=== PATIENT | male | born 1960 | race African-American/Black ===

== ENCOUNTER 2018-03-29 13:56 | Inpatient (IN) | payer OTHER ==
[2018-03-29 16:37] VITALS: BMI 22.7
--- NOTE | 2018-03-29 17:50 | HP ---
COWS - Scale Resting Pulse: 0= [place] 80 or Below Sweatin= Chills/Flushing Restless Observation: 1= Difficult to Sit Still Pupil Size: 0= Normal to Room Light Bone or Joint Aches: 1= Mild Discomfort Runny Nose/ Eye Tearin= Runny Nose/Eyes GI Upset > 30mins: 2= Nausea/Diarrhea Tremor Observation: 2= Slight Tremor Visible Yawning Observation: 0= None Anxiety or Irritability: 1=Feels Anxious/Irritable Goose Flesh Skin: 0=Smooth Skin COWS Score: 10 CIWA Score - CIWA Score Nausea/Vomitin-Mild Nausea/No Vomiting Muscle Tremors: 4-Moderate,w/Arms Extend Anxiety: 1-Mildly Anxious Agitation: 2 Paroxysmal Sweats: 1-Minimal Palms Moist Orientation: 0-Oriented Tacttile Disturbances: 0-None Auditory Disturbances: 0-None Visual Disturbances: 0-None Headache: 0-None Present CIWA-Ar Total Score: 9 Admission ROS S - HPI Chief Complaint: Here for alcohol, cocaine and opiate w/drawal. States was on Suboxone but has taken and has been using heroin. Allergies/Adverse Reactions: Allergies Allergy/AdvReac Type Severity Reaction Status Date / Time heparin Allergy Severe Rash Verified 07/07/16 17:36 ibuprofen Allergy Severe Rash Verified 07/07/16 17:36 prochlorperazine Allergy Severe Rash Verified 07/07/16 17:36 [From Compazine] prochlorperazine edisylate Allergy Severe Rash Verified 07/07/16 17:36 [From Compazine] prochlorperazine maleate Allergy Severe Rash Verified 07/07/16 17:36 [From Compazine] SEAFOOD Allergy Severe Rash Uncoded 07/07/16 17:36 History of Present Illness: Using drug and alcohol daily since age 41 via IV route. States has HIV, Hep C ( Rx'd), HTN, Have had past detox's and prior methadone maintenance tx. States currently on Suboxone being rx'd at [facility]. Denies Suboxone use for 2 days. Agrees to remain on Suboxone treatment and return to [facility]. [facility] [employer] reviewed. - Ebola screening Have you traveled outside of the country in the last 21 days: No Have you had contact with anyone from an Ebola affected area: No Have you been sick,other than usual withdrawal symptoms: No Do you have a fever: No - Review of Systems Constitutional: Chills, Changes in sleep (Has difficulty fallin asleep and staying asleep. Taakes ambien and trazodone.), Unintentional Wgt. Loss (Has had 15 lb weigh loss in past 1-2 months.) EENT: reports: Tearing (Constant tearing for years unrelated to drug use.) Respiratory: reports: No Symptoms reported Cardiac: reports: No Symptoms Reported GI: reports: Constipated (Intermittent. BM's brown. No blood.) : reports: Other (Has difficulty starting urine flow and difficulty stopping. No burning or pain. No blood.) Musculoskeletal: reports: Back Pain (R/t withdrawal. Pain is achy and about a "5 "), Joint Pain (Achy pain in both knees, intermittently x 2 years. Now pain is a "6"), Other (Sharp pains in all toes and fingers "7") Integumentary: reports: No Symptoms Reported Neuro: reports: No Symptoms reported Endocrine: reports: No Symptoms Reported Hematology: reports: Anemia (Unknown type), Other (HIV (+)) Psychiatric: reports: Mood/Affect Appropiate (Denies thoughts of suicide or violent ideation.), Orientated x3 Patient History - Patient Medical History Hx Anemia: No Hx Asthma: Yes (Last exacerbation 2 reyes ago) Hx Chronic Obstructive Pulmonary Disease (COPD): No Hx Cancer: No Hx Cardiac Disorders: No Hx Congestive Heart Failure: No Hx Hypertension: Yes (on meds,) Hx Hypercholesterolemia: No Hx Pacemaker: No HX Cerebrovascular Accident: No Hx Seizures: No Hx Dementia: No Hx Diabetes: No Hx Gastrointestinal Disorders: No Hx Liver Disease: No Hx Genitourinary Disorders: No Hx Sexually Transmitted Disorders: No Hx Renal Disease (ESRD): No Hx Thyroid Disease: No Hx Human Immunodeficiency Virus (HIV): Yes (2000) Hx Hepatitis C: Yes (2001. States Hep C is cured.) Hx Depression: No Hx Suicide Attempt: No Hx Bipolar Disorder: No Hx Schizophrenia: No - Patient Surgical History Past Surgical History: No Hx Neurologic Surgery: No Hx Cataract Extraction: No Hx Cardiac Surgery: No Hx Lung Surgery: No Hx Breast Surgery: No Hx Breast Biopsy: No Hx Abdominal Surgery: No Hx Appendectomy: No Hx Cholecystectomy: No Hx Genitourinary Surgery: No Hx Section: No Hx Orthopedic Surgery: No Anesthesia Reaction: No - PPD History Previous Implant?: Yes Documented Results: Negative w/o proof Implanted On Prior [facility] Admission?: Yes Date: 07/09/16 PPD to be Administered?: Yes - Reproductive History Patient is a Female of Child Bearing Age (11 -55 yrs old): No (Male) - Smoking Cessation Smoking history: Current every day smoker Have you smoked in the past 12 months: Yes Aproximately how many cigarettes per day: 6 Hx Chewing Tobacco Use: No Initiated information on smoking cessation: Yes 'Breaking Loose' booklet given: 03/29/18 - Substance & Tx. History Hx Alcohol Use: Yes Hx Substance Use: Yes Substance Use Type: Alcohol, Heroin, Marijuana Hx Substance Use Treatment: Yes (Suboxone 8/2 mg SL TID. ) - Substances Abused Alcohol Route: Oral Frequency: Daily Amount used: 1 PINT AND 1/2 VODKA Age of first use: 14 Date of Last Use: 03/29/18 Cocaine Route: Injection Frequency: Daily Amount used: $100 Age of first use: 41 Date of Last Use: 03/28/18 Marijuana/Hashish Route: Smoking Frequency: Daily Amount used: $10 Age of first use: 15 Date of Last Use: 03/28/18 Heroin Route: Injection Frequency: 3-6 times per week Amount used: 2-3 BAGS Age of first use: 41 Date of Last Use: 03/28/18 Family Disease History - Family Disease History Family Disease History: [place]: Father, Respiratory: Mother, Other: Son (KILLED) Admission Physical Exam [facility] - Vital Signs Vital Signs: Vital Signs - 24 hr 03/29/18 16:35 Temperature 97.0 F L Pulse Rate 53 L Respiratory 18 Rate Blood Pressure 107/68 - Physical General Appearance: Yes: Appropriately Dressed, Tremorous, Anxious HEENTM: Yes: Hearing grossly Normal, Normocephalic, Normal Voice, JOHANNA Respiratory: Yes: Chest Non-Tender, Lungs Clear, Normal Breath Sounds Neck: Yes: No masses,lesions,Nodules, Supple Breast: Yes: Breast Exam Deferred Cardiology: Yes: Regular Rhythm, S1, S2, Bradycardia Abdominal: Yes: Normal Bowel Sounds, Non Tender, Flat, Soft Genitourinary: Yes: Within Normal Limits Back: Yes: Other (Curvature of spine. Non-tender. FROM.) Musculoskeletal: Yes: full range of Motion, Gait Steady Extremities: Yes: Normal Capillary Refill, Normal Inspection, Normal Range of Motion, Tremors Neurological: Yes: Fully Oriented, Alert, Motor Strength 5/5 Integumentary: Yes: Track Sandra (Track sandra on arms.) Lymphatic: Yes: Within Normal Limits - Diagnostic (1) Insomnia Current Visit: Yes Status: Chronic (2) Alcohol dependence with withdrawal Current Visit: Yes Status: Acute Qualifiers: Complication of substance-induced condition: uncomplicated Qualified Code(s ): F10.230 - Alcohol dependence with withdrawal, uncomplicated (3) Cocaine dependence Current Visit: Yes Status: Acute Qualifiers: Substance use status: uncomplicated Qualified Code(s): F14.20 - Cocaine dependence, uncomplicated (4) Marijuana dependence Current Visit: Yes Status: Chronic (5) Nicotine dependence Current Visit: Yes Status: Chronic Qualifiers: Nicotine product type: cigarettes Substance use status: uncomplicated Qualified Code(s): F17.210 - Nicotine dependence, cigarettes, uncomplicated (6) Asthma Current Visit: Yes Status: Chronic Qualifiers: Asthma severity: mild intermittent Asthma complication type: with status asthmaticus Qualified Code(s): J45.22 - Mild intermittent asthma with status asthmaticus (7) Benign prostatic hyperplasia (BPH) with straining on urination Current Visit: Yes Status: Chronic (8) HIV (human immunodeficiency virus infection) Current Visit: Yes Status: Chronic Comment: PATIENT REPORTS TAKING TRUVADA, PREZISTA, NORVIR, ISENTRESS (TWO) ONCE A DAY IN THE MORNING, VIRUS NOT DETECTABLE (9) Hepatitis C Current Visit: Yes Status: Resolved Qualifiers: Viral hepatitis chronicity: carrier (10) Hypertension Current Visit: Yes Status: Chronic Qualifiers: Hypertension type: essential hypertension Qualified Code(s): I10 - Essential (primary) hypertension Cleared for Admission [facility] - Detox or Rehab S Level of Care: Medically Managed Detox Regimen/Protocol: Valium (Will start on Suboxone maintenance) [facility] Breath Alcohol Content Breath Alcohol Content: 0 Urine Drug Screen - Results Drug Screen Negative: No Urine Drug Screen Results: THC-Marijuana, TEENA-Cocaine, OPI-Opiates
[2018-03-29] MEDS ORDERED: MAGNESIUM CITRATE 300 ML BOTTLE PO PRN (18:43)
[2018-03-29] MEDS ORDERED: guaiFENesin/D-METHORPHAN HB 10 ML UNIT-DOSE CUPS PO PRN (18:43)
[2018-03-29] MEDS ORDERED: MAGNESIUM HYDROX 2400MG/30ML ORAL SUSPENSION 30 ML CUP PO PRN (18:43)
[2018-03-29] MEDS ORDERED: hydrOXYzine PAMOATE 50 MG CAPSULE (FP) PO PRN (18:43)
[2018-03-29] MEDS ORDERED: MAG HYDROX/AL HYDROX/SIMETH 30 ML UNIT-DOSE CUP PO PRN (18:43)
[2018-03-29] MEDS ORDERED: NICOTINE POLACRILEX 2 MG GUM BC PRN (18:43)
[2018-03-29] MEDS ORDERED: P-EPHED 60MG/TRIPROLIDI 2.5MG TABLET PO PRN (18:43)
[2018-03-29] MEDS ORDERED: LOPERAMIDE HCL 2 MG CAPSULE PO PRN (18:43)
[2018-03-29] MEDS ORDERED: MENTHOL/PHENOL 1 EACH UD MM PRN (18:43)
[2018-03-29] MEDS ORDERED: ALBUTEROL SO4 18 GM HFA INHALER IH PRN (18:45)
[2018-03-29] MEDS ORDERED: diazePAM 5 MG TABLET PO ONE (19:04)
[2018-03-29] MEDS: THIAMINE HCL 100 MG TABLET (FP) PO SCH (22:31)
[2018-03-29] MEDS: diazePAM 5 MG TABLET PO SCH (22:32)
[2018-03-29] MEDS: MELATONIN 5 MG TABLETS PO PRN (22:34)
[2018-03-30] MEDS: diazePAM 5 MG TABLET PO SCH ×3 (06:20→22:31)
[2018-03-30] MEDS: TAMSULOSIN HCL 0.4 MG CAP.ER.24H (FP) PO SCH (09:01)
[2018-03-30] MEDS ORDERED: TESTOSTERONE 5 GM TD SCH (10:00)
[2018-03-30] MEDS: PRENATAL VITAMINS W/ FOLIC ACID TABLET (FP) PO SCH (10:42)
[2018-03-30] MEDS: amLODIPine BESYLATE 5 MG TABLET (FP) PO SCH (10:42)
[2018-03-30] MEDS: NICOTINE 14 MG/24 HOURS TOPICAL PATCH TD SCH (10:42)
[2018-03-30] MEDS: BUPRENORPHINE/NALOXONE 8 MG/2 MG FILM PACKET SL SCH (10:42)
[2018-03-30 10:43] LABS: HEMATOCRIT 34.4 % (35.4-49); MCH 27.9 pg (25.7-33.7); MCHC 32.1 g/dl (32.0-35.9); MEAN CELL VOLUME 87.1 fl (80-96); MEAN PLT VOLUME 7.5 fl (7.5-11.1); PLATELET COUNT 212 K/MM3 (134-434); RBC 3.95 M/mm3 (4.00-5.60); RDW 15.4 % (11.9-15.9); WHITE BLOOD COUNT 2.1 K/mm3 (4.0-10.0)
[2018-03-30 10:52] LABS: CHLORIDE 108 mmol/L (98-107); POTASSIUM 3.9 mmol/L (3.5-5.1); SODIUM 140 mmol/L (136-145)
[2018-03-30 11:13] LABS: ALBUMIN 2.8 g/dl (3.4-5.0); ALK PHOS 78 U/L (45-117); ANION GAP 5 (8-16); BILIRUBIN,TOTAL 0.5 mg/dL (0.2-1.0); BLOOD UREA NITROGEN 25 mg/dL (7-18); CO2 27 mmol/L (21-32); GLUCOSE,RANDOM 116 mg/dL (74-106); SGOT/AST 34 U/L (15-37); SGPT/ALT 19 U/L (12-78); TOT PROT 7.3 g/dl (6.4-8.2)
--- NOTE | 2018-03-30 12:36 | CONSULT ---
[facility] Psychiatric Consult - Data Date of interview: 03/30/18 Admission source: [facility] Identifying data: Second admission to [facility] for this 58 y/o AA male seeking detox treatment on for alcohol,cocaine,heroin and marijuana dependence.Patient is single without children,domiciled,unemployed and supported on SSI benefits. Substance Abuse History: Confirmed by the patient in this interview.Details in current [facility] report : Smoking history: Current every day smoker. Have you smoked in the past 12 months: Yes. Aproximately how many cigarettes per day: 6. Hx Chewing Tobacco Use: No. Initiated information on smoking cessation: Yes. 'Breaking Loose' booklet given: 03/29/18. - Substance & Tx. History. Hx Alcohol Use: Yes. Hx Substance Use: Yes. Substance Use Type: Alcohol, Heroin, Marijuana. Hx Substance Use Treatment: Yes (Suboxone 8/2 mg SL TID. ). - Substances Abused. Alcohol. Route: Oral. Frequency: Daily. Amount used: 1 PINT AND 1/2 VODKA. Age of first use: 14. Date of Last Use: 03/29/18. Cocaine. Route: Injection. Frequency: Daily. Amount used: $100. Age of first use: 41. Date of Last Use: 03/28/18. Marijuana/Hashish. Route: Smoking. Frequency: Daily. Amount used: $10. Age of first use: 15. Date of Last Use: 03/28/18. Heroin. Route: Injection. Frequency: 3-6 times per week. Amount used: 2-3 BAGS. Age of first use: 41. Date of Last Use: 03/28/18 Medical History: Remarkable for HIV infection since 2000 (on HAART medications), hypertension,bronchal asthma,COPD,benign prostatic hyperplasia (BPH) and hepatitis C.Patient is currently on suboxone maintenance. Psychiatric History: No history of psychiatric hospitalizations.Patient denies having a mental illness. " My issue is drugs ".Mr Campbell sees a therapist at [facility] program for " talk therapy " and suboxone maintenance.Patient admits to a distant history of one suicide attempt via overdose with medications (someone else's medications). Physical/Sexual Abuse/Trauma History: Patient denies. Additional Comment: Urine Drug Screen Results: THC-Marijuana, TEENA-Cocaine, OPI- Opiates.Noted. Mental Status Exam - Mental Status Exam Alert and Oriented to: Time, Place, Person Cognitive Function: Good Patient Appearance: Well Groomed Mood: Nervous, Withdrawn Affect: Mood Congruent Patient Behavior: Fatigued, Appropriate, Cooperative Speech Pattern: Clear Voice Loudness: Normal Thought Process: Intact, Goal Oriented Thought Disorder: Not Present Hallucinations: Denies Suicidal Ideation: Denies Homicidal Ideation: Denies Insight/Judgement: Poor Sleep: Well Appetite: Good Muscle strength/Tone: Normal Gait/Station: Normal Psychiatric Findings - Problem List ([place]anoni 1, 2,3) (1) Alcohol dependence with withdrawal Current Visit: Yes Status: Acute Qualifiers: Complication of substance-induced condition: uncomplicated Qualified Code(s ): F10.230 - Alcohol dependence with withdrawal, uncomplicated (2) Cocaine dependence Current Visit: Yes Status: Acute Qualifiers: Substance use status: uncomplicated Qualified Code(s): F14.20 - Cocaine dependence, uncomplicated (3) Marijuana dependence Current Visit: Yes Status: Acute (4) Nicotine dependence Current Visit: Yes Status: Acute Qualifiers: Nicotine product type: cigarettes Substance use status: uncomplicated Qualified Code(s): F17.210 - Nicotine dependence, cigarettes, uncomplicated (5) Substance induced mood disorder Current Visit: Yes Status: Acute - Initial Treatment Plan Initial Treatment Plan: Psychoeducation.Detoxification.Observation.
[2018-03-30] MEDS: EMTRICITABINE PO SCH (14:21)
[2018-03-30] MEDS: TENOFOVIR PO SCH (14:21)
[2018-03-30] MEDS: RALTEGRAVIR PO SCH ×3 (14:22→22:32)
[2018-03-30] MEDS: RITONAVIR PO SCH (14:22)
[2018-03-30] MEDS: DARUNAVIR ETHANOLATE PO SCH (14:22)
--- NOTE | 2018-03-30 14:39 | EKG ---
Test Reason : Blood Pressure : / mmHG Vent. Rate : 050 BPM Atrial Rate : 050 BPM P-R Int : 154 ms QRS Dur : 100 ms QT Int : 466 ms P-R-T Axes : 054 028 047 degrees QTc Int : 424 ms SINUS BRADYCARDIA OTHERWISE NORMAL ECG NO PREVIOUS ECGS AVAILABLE Confirmed by MD Sanchez Daniel ([id number]) on 03/30/2018 2:39:16 PM Referred By: Confirmed By:Pj Sanchez MD
--- NOTE | 2018-03-30 16:42 | PN ---
[facility] CIWA - CIWA Score Nausea/Vomitin-No Nausea/No Vomiting Muscle Tremors: 4-Moderate,w/Arms Extend Anxiety: 3 Agitation: 1-Slight > Activity Paroxysmal Sweats: No Perspiration Orientation: 0-Oriented Tacttile Disturbances: 2-Mild Itch/Numbness/Burn Auditory Disturbances: 2-Mild Harshness/Frighten Visual Disturbances: 3-Moderate Sensitivity Headache: 0-None Present CIWA-Ar Total Score: 15 S COWS - Scale Resting Pulse: 0= [place] 80 or Below Sweatin= Chills/Flushing Restless Observation: 1= Difficult to Sit Still Pupil Size: 0= Normal to Room Light Bone or Joint Aches: 2= Severe Diffuse Aches Runny Nose/ Eye Tearin= None GI Upset > 30mins: 0= None Tremor Observation of Outstretched Hands: 2= Slight Tremor Visible Yawning Observation: 1= 1-2x During Session Anxiety or Irritability: 2=Irritable/Anxious Goose Flesh Skin: 3=Piloerection COWS Score: 12 [facility] Progress Note (SOAP) Subjective: Tremors, Fatigue, Body Aches. Objective: PATIENT A & O X 3, OBSERVED AMBULATING ON UNIT. NO ACUTE DISTRESS. 03/30/18 16:41 Vital Signs Temperature 96.4 F L 03/30/18 13:27 Pulse Rate 57 L 03/30/18 13:27 Respiratory Rate 16 03/30/18 13:27 Blood Pressure 93/66 03/30/18 13:27 O2 Sat by Pulse Oximetry (%) Laboratory Tests 03/30/18 03/30/18 03/30/18 07:40 07:40 07:40 WBC 2.1 L RBC 3.95 L Hgb 11.0 L Hct 34.4 L MCV 87.1 MCH 27.9 MCHC 32.1 RDW 15.4 Plt Count 212 MPV 7.5 Sodium 140 Potassium 3.9 Chloride 108 H Carbon Dioxide 27 Anion Gap 5 L BUN 25 H D Creatinine 1.0 Creat Clearance w eGFR > 60 Random Glucose 116 H D Calcium 8.0 L Total Bilirubin 0.5 D AST 34 D ALT 19 D Alkaline Phosphatase 78 Total Protein 7.3 Albumin 2.8 L RPR Titer Nonreactive LABS NOTED. Assessment: 03/30/18 16:41 WITHDRAWAL SYMPTOMS. LEUKOPENIA. 03/30/18 16:41 Plan: CONTINUE DETOX. INCREASE DAILY PO FLUID INTAKE.
[2018-03-30] MEDS: THIAMINE HCL 100 MG TABLET (FP) PO SCH (22:31)
[2018-03-30] MEDS: MELATONIN 5 MG TABLETS PO PRN (22:32)
[2018-03-30] MEDS: ACETAMINOPHEN 325 MG TABLET (FP) PO PRN (22:34)
[2018-03-31] MEDS: TENOFOVIR PO SCH (09:43)
[2018-03-31] MEDS: EMTRICITABINE PO SCH (09:43)
[2018-03-31] MEDS: RITONAVIR PO SCH (09:43)
[2018-03-31] MEDS: TAMSULOSIN HCL 0.4 MG CAP.ER.24H (FP) PO SCH (09:43)
[2018-03-31] MEDS: RALTEGRAVIR PO SCH ×2 (09:43→22:35)
[2018-03-31] MEDS: PRENATAL VITAMINS W/ FOLIC ACID TABLET (FP) PO SCH (09:44)
[2018-03-31] MEDS: amLODIPine BESYLATE 5 MG TABLET (FP) PO SCH (09:44)
[2018-03-31] MEDS: diazePAM 5 MG TABLET PO SCH ×2 (09:44→22:35)
[2018-03-31] MEDS: DARUNAVIR ETHANOLATE PO SCH (09:44)
[2018-03-31] MEDS: NICOTINE 14 MG/24 HOURS TOPICAL PATCH TD SCH (09:44)
[2018-03-31] MEDS: BUPRENORPHINE/NALOXONE 8 MG/2 MG FILM PACKET SL SCH (09:44)
[2018-03-31] MEDS: ACETAMINOPHEN 325 MG TABLET (FP) PO PRN (09:46)
--- NOTE | 2018-03-31 14:26 | PN ---
S CIWA - CIWA Score Nausea/Vomitin-No Nausea/No Vomiting Muscle Tremors: 4-Moderate,w/Arms Extend Anxiety: 4-Mod. Anxious/Guarded Agitation: 4-Moderately Restless Paroxysmal Sweats: 1-Minimal Palms Moist Orientation: 0-Oriented Tacttile Disturbances: 0-None Auditory Disturbances: 0-None Visual Disturbances: 0-None Headache: 0-None Present CIWA-Ar Total Score: 13 S COWS - Scale Resting Pulse: 0= [place] 80 or Below Sweatin= Chills/Flushing Restless Observation: 3= Extraneous Movement Pupil Size: 0= Normal to Room Light Bone or Joint Aches: 1= Mild Discomfort Runny Nose/ Eye Tearin= Nasal Congestion GI Upset > 30mins: 1= Stomach Cramp Tremor Observation of Outstretched Hands: 2= Slight Tremor Visible Yawning Observation: 1= 1-2x During Session Anxiety or Irritability: 2=Irritable/Anxious Goose Flesh Skin: 0=Smooth Skin COWS Score: 12 S Progress Note (SOAP) Subjective: ANXIETY,SWEATS,FATIGUE. Objective: 03/31/18 14:21 Vital Signs 03/31/18 03/31/18 03/31/18 06:40 09:35 13:20 Temperature 96.0 F L 96.5 F L 96.5 F L Pulse Rate 81 53 L 77 Respiratory 18 18 18 Rate Blood Pressure 111/71 118/69 117/64 Laboratory Tests 03/30/18 03/30/18 03/30/18 07:40 07:40 07:40 WBC 2.1 L RBC 3.95 L Hgb 11.0 L Hct 34.4 L MCV 87.1 MCH 27.9 MCHC 32.1 RDW 15.4 Plt Count 212 MPV 7.5 Sodium 140 Potassium 3.9 Chloride 108 H Carbon Dioxide 27 Anion Gap 5 L BUN 25 H D Creatinine 1.0 Creat Clearance w eGFR > 60 Random Glucose 116 H D Calcium 8.0 L Total Bilirubin 0.5 D AST 34 D ALT 19 D Alkaline Phosphatase 78 Total Protein 7.3 Albumin 2.8 L RPR Titer Nonreactive Assessment: 03/31/18 14:22 WITHDRAWAL SX Plan: CONTINUE DETOX UA TODAY REPEAT CMP AND CBC IN AM
[2018-03-31 17:45] LABS: URINE APPEARANCE SLCLOUDY; URINE BILIRUBIN NEGATIVE (<2.0 mg/dL); URINE COLOR DKYELLOW; URINE GLUCOSE (UA) NEGATIVE (NEGATIVE); URINE KETONE NEGATIVE (NEGATIVE); URINE LEUK ESTERASE TRACE (NEGATIVE); URINE NITRITE NEGATIVE (NEGATIVE); URINE PROTEIN NEGATIVE (NEGATIVE)
[2018-03-31 17:55] LABS: EPI CELLS RARE /HPF (FEW); URINE HYALINE CAST 9 /lpf; URINE MUCUS FEW
[2018-03-31] MEDS: THIAMINE HCL 100 MG TABLET (FP) PO SCH (22:35)
[2018-03-31] MEDS: MELATONIN 5 MG TABLETS PO PRN (22:35)
[2018-04-01] MEDS: diazePAM 5 MG TABLET PO PRN ×2 (06:51→17:11)
[2018-04-01 09:40] LABS: HEMATOCRIT 36.4 % (35.4-49); HEMOGLOBIN 11.9 GM/dL (11.7-16.9); MCH 28.7 pg (25.7-33.7); MCHC 32.7 g/dl (32.0-35.9); MEAN CELL VOLUME 87.8 fl (80-96); MEAN PLT VOLUME 7.9 fl (7.5-11.1); PLATELET COUNT 236 K/MM3 (134-434); RBC 4.15 M/mm3 (4.00-5.60); RDW 15.7 % (11.9-15.9); WHITE BLOOD COUNT 2.7 K/mm3 (4.0-10.0)
[2018-04-01 09:51] LABS: CHLORIDE 105 mmol/L (98-107); SODIUM 139 mmol/L (136-145)
[2018-04-01 09:58] LABS: ALBUMIN 2.9 g/dl (3.4-5.0); ALK PHOS 83 U/L (45-117); ANION GAP 2 (8-16); BLOOD UREA NITROGEN 21 mg/dL (7-18); CALCIUM 8.1 mg/dL (8.5-10.1); CO2 32 mmol/L (21-32); GLUCOSE,RANDOM 98 mg/dL (74-106); SGOT/AST 28 U/L (15-37); SGPT/ALT 19 U/L (12-78); TOT PROT 7.5 g/dl (6.4-8.2)
[2018-04-01] MEDS: TAMSULOSIN HCL 0.4 MG CAP.ER.24H (FP) PO SCH (10:30)
[2018-04-01] MEDS: RALTEGRAVIR PO SCH ×2 (10:31→22:22)
[2018-04-01] MEDS: PRENATAL VITAMINS W/ FOLIC ACID TABLET (FP) PO SCH (10:32)
[2018-04-01] MEDS: amLODIPine BESYLATE 5 MG TABLET (FP) PO SCH (10:32)
[2018-04-01] MEDS: BUPRENORPHINE/NALOXONE 8 MG/2 MG FILM PACKET SL SCH (10:32)
[2018-04-01] MEDS: diazePAM 5 MG TABLET PO SCH ×2 (10:32→22:22)
[2018-04-01] MEDS: TENOFOVIR PO SCH (10:33)
[2018-04-01] MEDS: EMTRICITABINE PO SCH (10:33)
[2018-04-01] MEDS: DARUNAVIR ETHANOLATE PO SCH (10:33)
[2018-04-01] MEDS: RITONAVIR PO SCH (10:36)
[2018-04-01] MEDS: NICOTINE 14 MG/24 HOURS TOPICAL PATCH TD SCH (10:39)
--- NOTE | 2018-04-01 12:22 | PN ---
S Progress Note (SOAP) Subjective: ALERT O X 3. OOB ON THE UNIT WITH STEADY GAIT. SLIGHTLY FATIGUED. Objective: 04/01/18 12:22 Vital Signs Temperature 96.0 F L 04/01/18 09:58 Pulse Rate 56 L 04/01/18 09:58 Respiratory Rate 16 04/01/18 09:58 Blood Pressure 119/78 05 09:58 O2 Sat by Pulse Oximetry (%) Laboratory Last Values WBC 2.7 K/mm3 (4.0-10.0) L 04/01/18 07:00 RBC 4.15 M/mm3 (4.00-5.60) 04/01/18 07:00 Hgb 11.9 GM/dL (11.7-16.9) 04/01/18 07:00 Hct 36.4 % (35.4-49) 04/01/18 07:00 MCV 87.8 fl (80-96) 04/01/18 07:00 MCH 28.7 pg (25.7-33.7) 04/01/18 07:00 MCHC 32.7 g/dl (32.0-35.9) 04/01/18 07:00 RDW 15.7 % (11.9-15.9) 04/01/18 07:00 Plt Count 236 K/MM3 (134-434) 04/01/18 07:00 MPV 7.9 fl (7.5-11.1) 04/01/18 07:00 Sodium 139 mmol/L (136-145) 04/01/18 07:00 Potassium 4.0 mmol/L (3.5-5.1) 04/01/18 07:00 Chloride 105 mmol/L (98-107) 04/01/18 07:00 Carbon Dioxide 32 mmol/L (21-32) 04/01/18 07:00 Anion Gap 2 (8-16) L 04/01/18 07:00 BUN 21 mg/dL (7-18) H 04/01/18 07:00 Creatinine 1.0 mg/dL (0.7-1.3) 04/01/18 07:00 Creat Clearance w eGFR > 60 (>60) 04/01/18 07:00 Random Glucose 98 mg/dL (74-106) 04/01/18 07:00 Calcium 8.1 mg/dL (8.5-10.1) L 04/01/18 07:00 Total Bilirubin 1.0 mg/dL (0.2-1.0) D 04/01/18 07:00 AST 28 U/L (15-37) 04/01/18 07:00 ALT 19 U/L (12-78) 04/01/18 07:00 Alkaline Phosphatase 83 U/L (45-117) 04/01/18 07:00 Total Protein 7.5 g/dl (6.4-8.2) 04/01/18 07:00 Albumin 2.9 g/dl (3.4-5.0) L 04/01/18 07:00 Urine Color Dkyellow 03/31/18 14:30 Urine Appearance Slcloudy 03/31/18 14:30 Urine pH 5.0 (5.0-8.0) 03/31/18 14:30 Ur Specific [place] 1.027 (1.001-1.035) 03/31/18 14:30 Urine Protein Negative (NEGATIVE) 03/31/18 14:30 Urine Glucose (UA) Negative (NEGATIVE) 03/31/18 14:30 Urine Ketones Negative (NEGATIVE) 03/31/18 14:30 Urine Blood Negative (NEGATIVE) 03/31/18 14:30 Urine Nitrite Negative (NEGATIVE) 03/31/18 14:30 Urine Bilirubin Negative (<2.0 mg/dL) 03/31/18 14:30 Urine Urobilinogen 2.0 mg/dL (0.2-1.0) 03/31/18 14:30 Ur Leukocyte Esterase Trace (NEGATIVE) 03/31/18 14:30 Urine WBC (Auto) 5 /hpf (3-5) 03/31/18 14:30 Urine RBC (Auto) 1 /hpf (0-3) 03/31/18 14:30 Ur Epithelial Cells Rare /HPF (FEW) 03/31/18 14:30 Hyaline Casts 9 /lpf 03/31/18 14:30 Urine Mucus Few 03/31/18 14:30 RPR Titer Nonreactive (NONREACTIVE) 03/30/18 07:40 Assessment: 04/01/18 12:23 WITHDRWAL SX Plan: CONTINUE DETOX
[2018-04-01] MEDS: THIAMINE HCL 100 MG TABLET (FP) PO SCH (22:22)
[2018-04-01] MEDS: MELATONIN 5 MG TABLETS PO PRN (22:22)
[2018-04-02] MEDS: TAMSULOSIN HCL 0.4 MG CAP.ER.24H (FP) PO SCH (09:11)
[2018-04-02] MEDS: amLODIPine BESYLATE 5 MG TABLET (FP) PO SCH (09:11)
[2018-04-02] MEDS: BUPRENORPHINE/NALOXONE 8 MG/2 MG FILM PACKET SL SCH (09:11)
[2018-04-02 09:12] VITALS: BP 123/77; PULSE 65; TEMP 96.8
[2018-04-02] MEDS ORDERED: diazePAM 5 MG TABLET PO SCH (10:00)
--- NOTE | 2018-04-02 15:01 | PN ---
S Progress Note (SOAP) Subjective: DETOX COMPLETED. ALERT O X 3. NAD. PT TO FOLLOW UP WITH PMD DR ELENA GERONIMO FOR MEDICAL MANAGEMENT FOR COMORBID CONDITIONS NEEDED. Objective: 04/02/18 15:00 Vital Signs Temperature 96.8 F L 04/02/18 09:11 Pulse Rate 65 04/02/18 09:11 Respiratory Rate 18 04/02/18 09:11 Blood Pressure 123/77 04/02/18 09:11 O2 Sat by Pulse Oximetry (%) Laboratory Tests 03/30/18 03/30/18 03/30/18 07:40 07:40 07:40 WBC 2.1 L RBC 3.95 L Hgb 11.0 L Hct 34.4 L MCV 87.1 MCH 27.9 MCHC 32.1 RDW 15.4 Plt Count 212 MPV 7.5 Sodium 140 Potassium 3.9 Chloride 108 H Carbon Dioxide 27 Anion Gap 5 L BUN 25 H D Creatinine 1.0 Creat Clearance w eGFR > 60 Random Glucose 116 H D Calcium 8.0 L Total Bilirubin 0.5 D AST 34 D ALT 19 D Alkaline Phosphatase 78 Total Protein 7.3 Albumin 2.8 L Urine Color Urine Appearance Urine pH Ur Specific [place] Urine Protein Urine Glucose (UA) Urine Ketones Urine Blood Urine Nitrite Urine Bilirubin Urine Urobilinogen Ur Leukocyte Esterase Urine WBC (Auto) Urine RBC (Auto) Ur Epithelial Cells Hyaline Casts Urine Mucus RPR Titer Nonreactive 03/31/18 04/01/18 04/01/18 14:30 07:00 07:00 WBC 2.7 L RBC 4.15 Hgb 11.9 Hct 36.4 MCV 87.8 MCH 28.7 MCHC 32.7 RDW 15.7 Plt Count 236 MPV 7.9 Sodium 139 Potassium 4.0 Chloride 105 Carbon Dioxide 32 Anion Gap 2 L BUN 21 H Creatinine 1.0 Creat Clearance w eGFR > 60 Random Glucose 98 Calcium 8.1 L Total Bilirubin 1.0 D AST 28 ALT 19 Alkaline Phosphatase 83 Total Protein 7.5 Albumin 2.9 L Urine Color Dkyellow Urine Appearance Slcloudy Urine pH 5.0 Ur Specific [place] 1.027 Urine Protein Negative Urine Glucose (UA) Negative Urine Ketones Negative Urine Blood Negative Urine Nitrite Negative Urine Bilirubin Negative Urine Urobilinogen 2.0 Ur Leukocyte Esterase Trace Urine WBC (Auto) 5 Urine RBC (Auto) 1 Ur Epithelial Cells Rare Hyaline Casts 9 Urine Mucus Few RPR Titer Assessment: 04/02/18 15:01 MEDICALLY STABLE Plan: D/C PT TODAY. FOLLOW UP AT [facility].
--- NOTE | 2018-04-02 15:06 | DS ---
[facility] Detox Discharge Summary Admission Date: 03/29/18 Discharge Date: 04/02/18 - History Present History: Alcohol Dependence, Cannabis Dependence, Cocaine Dependence, MMTP (SUBOXONE MAINTENANCE PROGRAM) Additional Comments: DETOX COMPLETED. ALET O X 3. NAD. PT TO FOLLOW UP WITH HIS PMD DR. ELENA GERONIMO FOR MEDICAL MANAGEMENT OF COMORBID CONDITIONS. PT HAD OWN MEDS WITH HIM ON ADMISSION AND PACKAGE GIVEN BACK TO PATIENT BY HIS NURSE, ADY LAGUNA. Pertinent Past History: PLEASE SEE DX BELOW - Physical Exam Results Vital Signs: Vital Signs Temperature 96.8 F L 04/02/18 09:11 Pulse Rate 65 04/02/18 09:11 Respiratory Rate 18 04/02/18 09:11 Blood Pressure 123/77 04/02/18 09:11 O2 Sat by Pulse Oximetry (%) Pertinent Admission Physical Exam Findings: WITHDRAWAL SX Laboratory Tests 03/30/18 03/30/18 03/30/18 07:40 07:40 07:40 WBC 2.1 L RBC 3.95 L Hgb 11.0 L Hct 34.4 L MCV 87.1 MCH 27.9 MCHC 32.1 RDW 15.4 Plt Count 212 MPV 7.5 Sodium 140 Potassium 3.9 Chloride 108 H Carbon Dioxide 27 Anion Gap 5 L BUN 25 H D Creatinine 1.0 Creat Clearance w eGFR > 60 Random Glucose 116 H D Calcium 8.0 L Total Bilirubin 0.5 D AST 34 D ALT 19 D Alkaline Phosphatase 78 Total Protein 7.3 Albumin 2.8 L Urine Color Urine Appearance Urine pH Ur Specific [place] Urine Protein Urine Glucose (UA) Urine Ketones Urine Blood Urine Nitrite Urine Bilirubin Urine Urobilinogen Ur Leukocyte Esterase Urine WBC (Auto) Urine RBC (Auto) Ur Epithelial Cells Hyaline Casts Urine Mucus RPR Titer Nonreactive 03/31/18 04/01/18 04/01/18 14:30 07:00 07:00 WBC 2.7 L RBC 4.15 Hgb 11.9 Hct 36.4 MCV 87.8 MCH 28.7 MCHC 32.7 RDW 15.7 Plt Count 236 MPV 7.9 Sodium 139 Potassium 4.0 Chloride 105 Carbon Dioxide 32 Anion Gap 2 L BUN 21 H Creatinine 1.0 Creat Clearance w eGFR > 60 Random Glucose 98 Calcium 8.1 L Total Bilirubin 1.0 D AST 28 ALT 19 Alkaline Phosphatase 83 Total Protein 7.5 Albumin 2.9 L Urine Color Dkyellow Urine Appearance Slcloudy Urine pH 5.0 Ur Specific [place] 1.027 Urine Protein Negative Urine Glucose (UA) Negative Urine Ketones Negative Urine Blood Negative Urine Nitrite Negative Urine Bilirubin Negative Urine Urobilinogen 2.0 Ur Leukocyte Esterase Trace Urine WBC (Auto) 5 Urine RBC (Auto) 1 Ur Epithelial Cells Rare Hyaline Casts 9 Urine Mucus Few RPR Titer - Treatment Hospital Course: Detox Protocol Followed, Detoxed Safely, Responded well, Discharged Condition Good, Rehab Referral Accepted Patient has Accepted a Rehab Referral to: [facility] - Medication Discharge Medications: Ambulatory Orders Albuterol Sulfate Inhaler - [Ventolin HFA Inhaler -] 2 inh PO Q6H 07/07/16 Amlodipine Besylate [Norvasc -] 5 mg PO DAILY 07/07/16 Darunavir Ethanolate [Prezista -] 800 mg PO DAILY 07/07/16 Emtricitabine/Tenofovir [Truvada -] 1 tab PO DAILY 07/07/16 Raltegravir [Isentress] 400 mg PO BID 07/07/16 Ritonavir [Norvir -] 100 mg PO DAILY 07/07/16 Tamsulosin HCl [Flomax -] 0.4 mg PO DAILY 07/07/16 Buprenorphine/Naloxone [Suboxone 8Mg/2Mg Sl Film -] 1 each SL TID 03/29/18 Testosterone [Androgel -] 5 gm TD DAILY 03/29/18 - Diagnosis (1) Alcohol dependence with withdrawal Status: Acute Qualifiers: Complication of substance-induced condition: uncomplicated Qualified Code(s ): F10.230 - Alcohol dependence with withdrawal, uncomplicated (2) Nicotine dependence Status: Acute Qualifiers: Nicotine product type: cigarettes Substance use status: in withdrawal Qualified Code(s): F17.213 - Nicotine dependence, cigarettes, with withdrawal (3) Asthma Status: Chronic Qualifiers: Asthma severity: mild Asthma persistence: unspecified Asthma complication type: uncomplicated Qualified Code(s): J45.909 - Unspecified asthma, uncomplicated (4) Benign prostatic hyperplasia (BPH) with straining on urination Status: Chronic (5) HIV (human immunodeficiency virus infection) Status: Chronic (6) Hypertension Status: Chronic Qualifiers: Hypertension type: essential hypertension Qualified Code(s): I10 - Essential (primary) hypertension (7) Hepatitis C Status: Resolved Qualifiers: Viral hepatitis chronicity: carrier Qualified Code(s): B18.2 - Chronic viral hepatitis C (8) COPD (chronic obstructive pulmonary disease) Status: Chronic Qualifiers: COPD type: emphysema Emphysema type: unilateral Qualified Code(s): J43.0 - Unilateral pulmonary emphysema [MacLeod's syndrome] (9) Cocaine dependence Status: Acute Qualifiers: Substance use status: uncomplicated Qualified Code(s): F14.20 - Cocaine dependence, uncomplicated (10) Marijuana dependence Status: Acute (11) Opioid dependence on agonist therapy Status: Chronic - AMA Did Patient Leave Against Medical Advice: No
== END 2018-04-02 09:41 | disposition home or self-care (01) | DRG 773 ==
LOC: YASAS 13:56 → Y3N 17:20
PROVIDERS: ADMIT Internal Medicine; ATTEND Internal Medicine
PROC: HZ2ZZZZ Detoxification Services for Substance Abuse Treatment (ICD-10-PCS; principal; 2018-03-29)
DX: F10.230 Alcohol dependence with withdrawal, uncomplicated (principal); F11.20 Opioid dependence, uncomplicated; F14.20 Cocaine dependence, uncomplicated; F12.20 Cannabis dependence, uncomplicated; F17.213 Nicotine dependence, cigarettes, with withdrawal; F19.24 Other psychoactive substance dependence with psychoactive substance-induced mood disorder; J45.909 Unspecified asthma, uncomplicated; J43.0 Unilateral pulmonary emphysema [MacLeod's syndrome]; N40.1 Benign prostatic hyperplasia with lower urinary tract symptoms; Z21 Asymptomatic human immunodeficiency virus [HIV] infection status; I10 Essential (primary) hypertension; B18.2 Chronic viral hepatitis C; G47.00 Insomnia, unspecified; D72.819 Decreased white blood cell count, unspecified; Z88.8 Allergy status to other drugs, medicaments and biological substances; Z91.013 Allergy to seafood
CPT/HCPCS: 36415; 80053; 81003; 81015; 85027; 86593; 93005; 93010

== ENCOUNTER 2018-07-04 13:21 | Inpatient (IN) | payer OTHER ==
[2018-07-04 13:59] VITALS: BMI 23.5
--- NOTE | 2018-07-04 17:54 | HP ---
COWS - Scale Resting Pulse: 0= [place] 80 or Below Sweatin=Flushed/Facial Moisture Restless Observation: 1= Difficult to Sit Still Pupil Size: 0= Normal to Room Light Bone or Joint Aches: 2= Severe Diffuse Aches Runny Nose/ Eye Tearin= Runny Nose/Eyes GI Upset > 30mins: 1= Stomach Cramp Tremor Observation: 2= Slight Tremor Visible Yawning Observation: 2= >3x During Session Anxiety or Irritability: 2=Irritable/Anxious Goose Flesh Skin: 3=Piloerection COWS Score: 17 CIWA Score - CIWA Score Nausea/Vomitin-No Nausea/No Vomiting Muscle Tremors: 4-Moderate,w/Arms Extend Anxiety: 4-Mod. Anxious/Guarded Agitation: 4-Moderately Restless Paroxysmal Sweats: 3 Orientation: 0-Oriented Tacttile Disturbances: 0-None Auditory Disturbances: 0-None Visual Disturbances: 0-None Headache: 1-Very Mild CIWA-Ar Total Score: 16 Admission ROS BHS - HPI Chief Complaint: I need help and need to get off the drugs. Allergies/Adverse Reactions: Allergies Allergy/AdvReac Type Severity Reaction Status Date / Time heparin Allergy Severe Rash Verified 07/04/18 15:41 ibuprofen Allergy Severe Rash Verified 07/04/18 15:41 prochlorperazine Allergy Severe Rash Verified 07/04/18 15:41 [From Compazine] prochlorperazine edisylate Allergy Severe Rash Verified 07/07/16 17:36 [From Compazine] prochlorperazine maleate Allergy Severe Rash Verified 07/04/18 15:41 [From Compazine] SEAFOOD Allergy Severe Rash Uncoded 07/04/18 15:41 History of Present Illness: pt is a 58yr old male with a long history of alcohol and heroin dependence seeking detox for treatment. Pt was on a suboxone treatment and received his rx 05/27/2018. pt states he sold his suboxone and it has been more than four days since using his own suboxone. pt agreed to go on a methadone taper for detox. pt also agreed to decide if he will continue to go on suboxone after detox or start a MMTP program. Exam Limitations: No Limitations - Ebola screening Have you traveled outside of the country in the last 21 days: No Have you had contact with anyone from an Ebola affected area: No Have you been sick,other than usual withdrawal symptoms: No Do you have a fever: No - Review of Systems Constitutional: Chills, Diaphoresis, Night Sweats, Changes in sleep, Unintentional Wgt. Loss EENT: reports: Blurred Vision, Tearing, Nose Congestion Respiratory: reports: No Symptoms reported Cardiac: reports: No Symptoms Reported GI: reports: Constipated, Poor Appetite, Poor Fluid Intake : reports: No Symptoms Reported Musculoskeletal: reports: Back Pain, Joint Pain, Muscle Pain, Muscle Weakness Integumentary: reports: Flushing, Sweating Neuro: reports: Headache, Tingling, Tremors Endocrine: reports: Excessive Sweating, Flushing, Intolerance to Cold, Intolerance to Heat Hematology: reports: No Symptoms Reported Psychiatric: reports: Judgement Intact, Mood/Affect Appropiate, Orientated x3, Agitated, Anxious Other Systems: Reviewed and Negative Patient History - Patient Medical History Hx Anemia: No Hx Asthma: Yes (Last exacerbation 2 reyes ago) Hx Chronic Obstructive Pulmonary Disease (COPD): No Hx Cancer: No Hx Cardiac Disorders: No Hx Congestive Heart Failure: No Hx Hypertension: Yes (on meds,) Hx Hypercholesterolemia: No Hx Pacemaker: No HX Cerebrovascular Accident: No Hx Seizures: No Hx Dementia: No Hx Diabetes: No Hx Gastrointestinal Disorders: No Hx Liver Disease: No Hx Genitourinary Disorders: No Hx Sexually Transmitted Disorders: No Hx Renal Disease (ESRD): No Hx Thyroid Disease: No Hx Human Immunodeficiency Virus (HIV): Yes (2000) Hx Hepatitis C: Yes (2001. States Hep C is cured.) Hx Depression: Yes (and insomnia) Hx Suicide Attempt: No Hx Bipolar Disorder: No Hx Schizophrenia: No - Patient Surgical History Past Surgical History: No Hx Neurologic Surgery: No Hx Cataract Extraction: No Hx Cardiac Surgery: No Hx Lung Surgery: No Hx Breast Surgery: No Hx Breast Biopsy: No Hx Abdominal Surgery: No Hx Appendectomy: No Hx Cholecystectomy: No Hx Genitourinary Surgery: No Hx Section: No Hx Orthopedic Surgery: No Anesthesia Reaction: No - PPD History Previous Implant?: Yes Documented Results: Negative w/proof Implanted On Prior R Admission?: Yes Date: 03/31/18 Results: 0 - Reproductive History Patient is a Female of Child Bearing Age (11 -55 yrs old): No - Smoking Cessation Smoking history: Current every day smoker Have you smoked in the past 12 months: Yes Aproximately how many cigarettes per day: 4 Hx Chewing Tobacco Use: No Initiated information on smoking cessation: Yes 'Breaking Loose' booklet given: 07/04/18 - Substance & Tx. History Hx Alcohol Use: Yes Hx Substance Use: Yes Substance Use Type: Alcohol, Cocaine, Heroin Hx Substance Use Treatment: Yes (last detox 03/2018 [facility]) - Substances Abused Alcohol Route: Oral Frequency: Daily Amount used: vodka- 2pts daily Age of first use: 15 Date of Last Use: 07/04/18 Heroin Route: Injection Frequency: Daily Amount used: 4bags Age of first use: 41 Date of Last Use: 07/03/18 Cocaine Route: Injection Frequency: 3-6 times per week Amount used: 2bags Age of first use: 41 Date of Last Use: 06/28/18 Family Disease History - Family Disease History Family Disease History: [place]: Father, Respiratory: Mother, Other: Son (KILLED) Admission Physical Exam [facility] - Vital Signs Vital Signs: Vital Signs - 24 hr 07/04/18 13:56 Temperature 97.4 F L Pulse Rate 76 Respiratory 18 Rate Blood Pressure 117/73 - Physical General Appearance: Yes: Appropriately Dressed, Moderate Distress, Tremorous, Irritable, Sweating, Anxious HEENTM: Yes: Hearing grossly Normal, Normal Voice, Nasal Congestion, Rhinorrhea Respiratory: Yes: Lungs Clear, Normal Breath Sounds, No Respiratory Distress Neck: Yes: No masses,lesions,Nodules Breast: Yes: Within Normal Limits Cardiology: Yes: Regular Rhythm, Regular Rate, S1, S2 Abdominal: Yes: Normal Bowel Sounds, Non Tender, Soft Genitourinary: Yes: Within Normal Limits Back: Yes: Normal Inspection Musculoskeletal: Yes: Back pain, Muscle Pain Extremities: Yes: Normal Capillary Refill, Normal Inspection, Tremors Neurological: Yes: Fully Oriented, Alert, Normal Response Integumentary: Yes: Normal Color, Diaphoresis, Track Campos Lymphatic: Yes: Within Normal Limits - Diagnostic (1) Alcohol dependence with withdrawal Current Visit: Yes Status: Chronic Qualifiers: Complication of substance-induced condition: uncomplicated (2) Cocaine dependence Current Visit: Yes Status: Chronic Qualifiers: Substance use status: uncomplicated (3) Asthma Current Visit: Yes Status: Chronic Qualifiers: Asthma severity: mild (4) Benign prostatic hyperplasia (BPH) with straining on urination Current Visit: Yes Status: Chronic (5) COPD (chronic obstructive pulmonary disease) Current Visit: Yes Status: Chronic Qualifiers: COPD type: chronic bronchitis (6) HIV (human immunodeficiency virus infection) Current Visit: Yes Status: Chronic (7) Hypertension Current Visit: Yes Status: Chronic Qualifiers: Hypertension type: essential hypertension Cleared for Admission BHS - Detox or Rehab S Level of Care: Medically Managed Detox Regimen/Protocol: Methadone/Librium BHS Breath Alcohol Content Breath Alcohol Content: 0.031 Urine Drug Screen - Results Drug Screen Negative: No Urine Drug Screen Results: TEENA-Cocaine, OPI-Opiates
[2018-07-04] MEDS ORDERED: hydrOXYzine PAMOATE 50 MG CAPSULE (FP) PO PRN (18:04)
[2018-07-04] MEDS ORDERED: P-EPHED 60MG/TRIPROLIDI 2.5MG TABLET PO PRN (18:04)
[2018-07-04] MEDS ORDERED: LOPERAMIDE HCL 2 MG CAPSULE PO PRN (18:04)
[2018-07-04] MEDS ORDERED: guaiFENesin/D-METHORPHAN HB 10 ML UNIT-DOSE CUPS PO PRN (18:04)
[2018-07-04] MEDS ORDERED: ACETAMINOPHEN 325 MG TABLET (FP) PO PRN (18:04)
[2018-07-04] MEDS ORDERED: MENTHOL/PHENOL 1 EACH UD MM PRN (18:04)
[2018-07-04] MEDS ORDERED: MAG HYDROX/AL HYDROX/SIMETH 30 ML UNIT-DOSE CUP PO PRN (18:04)
[2018-07-04] MEDS ORDERED: MAGNESIUM HYDROX 2400MG/30ML ORAL SUSPENSION 30 ML CUP PO PRN (18:04)
[2018-07-04] MEDS ORDERED: MAGNESIUM CITRATE 300 ML BOTTLE PO PRN (18:04)
[2018-07-04] MEDS ORDERED: NICOTINE POLACRILEX 4 MG GUM BC PRN (18:04)
[2018-07-04] MEDS ORDERED: chlordiazePOXIDE HCL 25 MG CAPSULE PO PRN (18:04)
[2018-07-04] MEDS ORDERED: chlordiazePOXIDE HCL 25 MG CAPSULE PO ONE (18:30)
[2018-07-04] MEDS: ALBUTEROL SO4 8 GM HFA INHALER IH SCH (18:36)
[2018-07-04] MEDS ORDERED: METHADONE HCL 10 MG TABLET (FOR DETOX USE ONLY) PO ONE ×2 (18:45→23:00)
[2018-07-04] MEDS: RALTEGRAVIR POTASSIUM 400 MG TAB PO SCH (22:44)
[2018-07-04] MEDS: THIAMINE HCL 100 MG TABLET (FP) PO SCH (22:45)
[2018-07-04] MEDS: chlordiazePOXIDE HCL 25 MG CAPSULE PO SCH (22:46)
[2018-07-05] MEDS: ALBUTEROL SO4 8 GM HFA INHALER IH SCH ×4 (01:44→20:34)
[2018-07-05] MEDS: chlordiazePOXIDE HCL 25 MG CAPSULE PO SCH ×4 (05:59→22:43)
--- NOTE | 2018-07-05 08:45 | EKG ---
Test Reason : Blood Pressure : / mmHG Vent. Rate : 073 BPM Atrial Rate : 073 BPM P-R Int : 148 ms QRS Dur : 094 ms QT Int : 396 ms P-R-T Axes : 041 040 050 degrees QTc Int : 436 ms NORMAL SINUS RHYTHM NON-SPECIFIC INTRA-VENTRICULAR CONDUCTION BLOCK WHEN COMPARED WITH ECG OF 29-MAR-2018 21:31, NO SIGNIFICANT CHANGE WAS FOUND Confirmed by JACQUELINE NIETO MD ([id number]) on 07/05/2018 8:44:42 AM Referred By: Confirmed By:JACQUELINE NIETO MD
[2018-07-05] MEDS ORDERED: METHADONE HCL 10 MG TABLET (FOR DETOX USE ONLY) PO SCH (10:00)
[2018-07-05 10:52] LABS: HEMOGLOBIN 12.1 GM/dL (11.7-16.9); MCH 28.4 pg (25.7-33.7); MCHC 32.8 g/dl (32.0-35.9); MEAN CELL VOLUME 86.4 fl (80-96); MEAN PLT VOLUME 7.9 fl (7.5-11.1); PLATELET COUNT 231 K/MM3 (134-434); RBC 4.28 M/mm3 (4.00-5.60); RDW 14.3 % (11.9-15.9); WHITE BLOOD COUNT 3.3 K/mm3 (4.0-10.0)
[2018-07-05 10:54] LABS: ANION GAP 5 (8-16); BLOOD UREA NITROGEN 20 mg/dL (7-18); CALCIUM 8.1 mg/dL (8.5-10.1); CHLORIDE 107 mmol/L (98-107); CO2 30 mmol/L (21-32); POTASSIUM 4.1 mmol/L (3.5-5.1); SODIUM 142 mmol/L (136-145)
[2018-07-05 11:00] LABS: ALK PHOS 72 U/L (45-117); BILIRUBIN,TOTAL 0.3 mg/dL (0.2-1.0); CREATININE 1.1 mg/dL (0.7-1.3); GLUCOSE,RANDOM 67 mg/dL (74-106); SGOT/AST 38 U/L (15-37); SGPT/ALT 23 U/L (12-78); TOT PROT 7.8 g/dl (6.4-8.2)
[2018-07-05] MEDS: TAMSULOSIN HCL 0.4 MG CAP.ER.24H (FP) PO SCH (11:21)
[2018-07-05] MEDS: DARUNAVIR ETHANOLATE 800 MG TAB PO SCH (11:21)
[2018-07-05] MEDS: RALTEGRAVIR POTASSIUM 400 MG TAB PO SCH ×2 (11:21→22:43)
[2018-07-05] MEDS: EMTRICITABINE 200MG/TENOFOVIR 300MG PO SCH (11:21)
[2018-07-05] MEDS: PRENATAL VITAMINS W/ FOLIC ACID TABLET (FP) PO SCH (11:21)
--- NOTE | 2018-07-05 11:21 | PN ---
S CIWA - CIWA Score Nausea/Vomitin Muscle Tremors: 3 Anxiety: 2 Agitation: 2 Paroxysmal Sweats: 1-Minimal Palms Moist Orientation: 0-Oriented Tacttile Disturbances: 1-Very Mild Itch/Numbness Auditory Disturbances: 1-Very Mild Visual Disturbances: 0-None Headache: 2-Mild CIWA-Ar Total Score: 15 BHS COWS - Scale Resting Pulse: 0= [place] 80 or Below Sweatin= Chills/Flushing Restless Observation: 3= Extraneous Movement Pupil Size: 1= Pupils >than Normal Bone or Joint Aches: 2= Severe Diffuse Aches Runny Nose/ Eye Tearin= Nasal Congestion GI Upset > 30mins: 2= Nausea/Diarrhea Tremor Observation of Outstretched Hands: 2= Slight Tremor Visible Yawning Observation: 1= 1-2x During Session Anxiety or Irritability: 2=Irritable/Anxious Goose Flesh Skin: 0=Smooth Skin COWS Score: 15 BHS Progress Note (SOAP) Subjective: alert,irritable,anxious,interrupted sleep,tremor,pain in the body and back Objective: 07/05/18 11:18 Vital Signs Temperature 96.6 F L 07/05/18 09:19 Pulse Rate 50 L 07/05/18 09:19 Respiratory Rate 16 07/05/18 09:19 Blood Pressure 133/83 07/05/18 09:19 O2 Sat by Pulse Oximetry (%) ekg nsr,normal ecgqt 396/436 Laboratory Last Values WBC 3.3 K/mm3 (4.0-10.0) L 07/05/18 07:00 RBC 4.28 M/mm3 (4.00-5.60) 07/05/18 07:00 Hgb 12.1 GM/dL (11.7-16.9) 07/05/18 07:00 Hct 37.0 % (35.4-49) 07/05/18 07:00 MCV 86.4 fl (80-96) 07/05/18 07:00 MCH 28.4 pg (25.7-33.7) 07/05/18 07:00 MCHC 32.8 g/dl (32.0-35.9) 07/05/18 07:00 RDW 14.3 % (11.9-15.9) 07/05/18 07:00 Plt Count 231 K/MM3 (134-434) 07/05/18 07:00 MPV 7.9 fl (7.5-11.1) 07/05/18 07:00 Sodium 142 mmol/L (136-145) 07/05/18 07:00 Potassium 4.1 mmol/L (3.5-5.1) 07/05/18 07:00 Chloride 107 mmol/L (98-107) 07/05/18 07:00 Carbon Dioxide 30 mmol/L (21-32) 07/05/18 07:00 Anion Gap 5 (8-16) L 07/05/18 07:00 BUN 20 mg/dL (7-18) H 07/05/18 07:00 Creatinine 1.1 mg/dL (0.7-1.3) 07/05/18 07:00 Creat Clearance w eGFR > 60 (>60) 07/05/18 07:00 Random Glucose 67 mg/dL (74-106) L D 07/05/18 07:00 Calcium 8.1 mg/dL (8.5-10.1) L 07/05/18 07:00 Total Bilirubin 0.3 mg/dL (0.2-1.0) 07/05/18 07:00 AST 38 U/L (15-37) H D 07/05/18 07:00 ALT 23 U/L (12-78) D 07/05/18 07:00 Alkaline Phosphatase 72 U/L (45-117) 07/05/18 07:00 Total Protein 7.8 g/dl (6.4-8.2) 07/05/18 07:00 Albumin 3.0 g/dl (3.4-5.0) L 07/05/18 07:00 Assessment: 07/05/18 11:21 withdrawal symptom Plan: continue detox
[2018-07-05] MEDS: RITONAVIR 100 MG TABLET PO SCH (11:22)
[2018-07-05] MEDS: NICOTINE 21 MG/24 HOURS TOPICAL PATCH TD SCH (11:22)
[2018-07-05] MEDS: amLODIPine BESYLATE 5 MG TABLET (FP) PO SCH (11:22)
--- NOTE | 2018-07-05 13:20 | CONSULT ---
[facility] Psychiatric Consult - Data Date of interview: 07/05/18 Admission source: [facility] Identifying data: Patient is a 58 year old single male, without kids, unemployed , and supported by [facility]. This is one of multiple admissions for patient. Pt admitted to for Substance Abuse History: - Smoking Cessation. Smoking history: Current every day smoker. Have you smoked in the past 12 months: Yes. Aproximately how many cigarettes per day: 4. Hx Chewing Tobacco Use: No. Initiated information on smoking cessation: Yes. 'Breaking Loose' booklet given: 07/04/18. - Substance & Tx. History. Hx Alcohol Use: Yes. Hx Substance Use: Yes. Substance Use Type : Alcohol, Cocaine, Heroin. Hx Substance Use Treatment: Yes (last detox 03/2018 [facility]). - Substances Abused. Alcohol. Route: Oral. Frequency: Daily. Amount used: vodka- 2pts daily. Age of first use: 15. Date of Last Use: . Heroin. Route: Injection. Frequency: Daily. Amount used: 4bags. Age of first use: 41. Date of Last Use: 07/03/18. Cocaine. Route: Injection. Frequency: 3-6 times per week. Amount used: 2bags. Age of first use: 41. Date of Last Use: 06/28/18 Medical History: Asthma, hypertension., HIV Psychiatric History: Pt. with an unclear psychiatric history. Pt reports three psychiatric hospitalizations all which took place in 80's-90's. States he was never prescribed psychotropic medications and did not follow up with an OPD. Pt. denies h/o suicide attempt. Pt currently denies suicidal and homicidal ideation. Physical/Sexual Abuse/Trauma History: Denies. Mental Status Exam - Mental Status Exam Alert and Oriented to: Time, Place, Person Cognitive Function: Good Patient Appearance: Well Groomed Mood: Withdrawn Affect: Mood Congruent Patient Behavior: Guarded Speech Pattern: Appropriate Voice Loudness: Moderately Soft/Quiet Thought Process: Goal Oriented Thought Disorder: Not Present Hallucinations: Denies Suicidal Ideation: Denies Homicidal Ideation: Denies Insight/Judgement: Poor Sleep: Fair Appetite: Fair Muscle strength/Tone: Normal Gait/Station: Normal Psychiatric Findings - Problem List ([place] 1, 2,3) (1) Alcohol dependence with withdrawal Current Visit: Yes Status: Chronic Qualifiers: Complication of substance-induced condition: uncomplicated (2) Cocaine dependence Current Visit: Yes Status: Chronic Qualifiers: Substance use status: uncomplicated (3) Nicotine dependence Current Visit: Yes Status: Chronic Qualifiers: Nicotine product type: cigarettes Substance use status: in withdrawal Qualified Code(s): F17.213 - Nicotine dependence, cigarettes, with withdrawal (4) Substance induced mood disorder Current Visit: Yes Status: Acute - Initial Treatment Plan Initial Treatment Plan: Psychoeducation provided. Detoxification in progress. Observation.
[2018-07-05 18:44] LABS: URINE APPEARANCE CLEAR; URINE BILIRUBIN NEGATIVE (<2.0 mg/dL); URINE COLOR DKYELLOW; URINE GLUCOSE (UA) NEGATIVE (NEGATIVE); URINE KETONE NEGATIVE (NEGATIVE); URINE LEUK ESTERASE NEGATIVE (NEGATIVE); URINE NITRITE NEGATIVE (NEGATIVE)
[2018-07-05 18:55] LABS: URINE PROTEIN 1+ (NEGATIVE)
[2018-07-05 19:05] LABS: EPI CELLS RARE /HPF (FEW); URINE MUCUS RARE
[2018-07-05] MEDS: THIAMINE HCL 100 MG TABLET (FP) PO SCH (22:43)
[2018-07-05] MEDS: MELATONIN 5 MG TABLETS PO PRN (23:01)
[2018-07-06] MEDS: chlordiazePOXIDE HCL 25 MG CAPSULE PO SCH ×3 (05:35→19:40)
[2018-07-06] MEDS: PRENATAL VITAMINS W/ FOLIC ACID TABLET (FP) PO SCH (10:48)
[2018-07-06] MEDS: RITONAVIR 100 MG TABLET PO SCH (10:48)
[2018-07-06] MEDS: METHADONE HCL 5 MG TABLET (FOR DETOX USE ONLY) PO SCH (10:49)
[2018-07-06] MEDS: amLODIPine BESYLATE 5 MG TABLET (FP) PO SCH (10:49)
[2018-07-06] MEDS: TAMSULOSIN HCL 0.4 MG CAP.ER.24H (FP) PO SCH (10:49)
[2018-07-06] MEDS: RALTEGRAVIR POTASSIUM 400 MG TAB PO SCH ×2 (10:49→22:34)
[2018-07-06] MEDS: EMTRICITABINE 200MG/TENOFOVIR 300MG PO SCH (10:49)
[2018-07-06] MEDS: NICOTINE 21 MG/24 HOURS TOPICAL PATCH TD SCH (10:50)
[2018-07-06] MEDS: DARUNAVIR ETHANOLATE 800 MG TAB PO SCH (10:51)
[2018-07-06] MEDS: ALBUTEROL SO4 8 GM HFA INHALER IH SCH ×3 (12:30→22:34)
[2018-07-06] MEDS: THIAMINE HCL 100 MG TABLET (FP) PO SCH (22:35)
[2018-07-06] MEDS: chlordiazePOXIDE 5 MG CAPSULE PO SCH (22:36)
[2018-07-06] MEDS: MELATONIN 5 MG TABLETS PO PRN (22:37)
--- NOTE | 2018-07-06 23:15 | PN ---
[facility] CIWA - CIWA Score Nausea/Vomitin Muscle Tremors: 3 Anxiety: 3 Agitation: 2 Paroxysmal Sweats: 3 Orientation: 0-Oriented Tacttile Disturbances: 0-None Auditory Disturbances: 0-None Visual Disturbances: 0-None Headache: 0-None Present CIWA-Ar Total Score: 14 [facility] COWS - Scale Resting Pulse: 0= [place] 80 or Below Sweatin=Flushed/Facial Moisture Restless Observation: 1= Difficult to Sit Still Pupil Size: 0= Normal to Room Light Bone or Joint Aches: 1= Mild Discomfort Runny Nose/ Eye Tearin= Nasal Congestion GI Upset > 30mins: 0= None Tremor Observation of Outstretched Hands: 2= Slight Tremor Visible Yawning Observation: 1= 1-2x During Session Anxiety or Irritability: 2=Irritable/Anxious Goose Flesh Skin: 0=Smooth Skin COWS Score: 10 [facility] Progress Note (SOAP) Subjective: Shakes Sweats Sleep disturbance Sleeping but arousable to verbal stimuli No acute distress noted Vital Signs Temperature 97.2 F L 07/06/18 22:20 Pulse Rate 57 L 07/06/18 22:20 Respiratory Rate 18 07/06/18 22:20 Blood Pressure 120/74 07/06/18 22:20 O2 Sat by Pulse Oximetry (%) Assessment: 07/06/18 23:15 withdrawal sx Continue detox
[2018-07-07] MEDS: chlordiazePOXIDE 5 MG CAPSULE PO SCH ×2 (05:11→10:40)
[2018-07-07] MEDS: PRENATAL VITAMINS W/ FOLIC ACID TABLET (FP) PO SCH (10:39)
[2018-07-07] MEDS: TAMSULOSIN HCL 0.4 MG CAP.ER.24H (FP) PO SCH (10:40)
[2018-07-07] MEDS: RITONAVIR 100 MG TABLET PO SCH (10:40)
[2018-07-07] MEDS: DARUNAVIR ETHANOLATE 800 MG TAB PO SCH (10:40)
[2018-07-07] MEDS: amLODIPine BESYLATE 5 MG TABLET (FP) PO SCH (10:40)
[2018-07-07] MEDS: EMTRICITABINE 200MG/TENOFOVIR 300MG PO SCH (10:40)
[2018-07-07] MEDS: NICOTINE 21 MG/24 HOURS TOPICAL PATCH TD SCH (10:41)
[2018-07-07] MEDS: RALTEGRAVIR POTASSIUM 400 MG TAB PO SCH ×2 (10:41→22:46)
[2018-07-07] MEDS: METHADONE HCL 5 MG TABLET (FOR DETOX USE ONLY) PO SCH (10:41)
[2018-07-07] MEDS: ALBUTEROL SO4 8 GM HFA INHALER IH SCH (13:00)
--- NOTE | 2018-07-07 15:08 | PN ---
BHS Progress Note (SOAP) Subjective: Interrupted sleep, muscle aches Objective: 07/07/18 15:08 Vital Signs - 8 hr 07/07/18 07/07/18 10:27 13:56 Temperature 96.8 F L 98.2 F Pulse Rate 65 64 Respiratory 18 18 Rate Blood Pressure 140/91 118/71 Laboratory Last Values WBC 3.3 K/mm3 (4.0-10.0) L 07/05/18 07:00 RBC 4.28 M/mm3 (4.00-5.60) 07/05/18 07:00 Hgb 12.1 GM/dL (11.7-16.9) 07/05/18 07:00 Hct 37.0 % (35.4-49) 07/05/18 07:00 MCV 86.4 fl (80-96) 07/05/18 07:00 MCH 28.4 pg (25.7-33.7) 07/05/18 07:00 MCHC 32.8 g/dl (32.0-35.9) 07/05/18 07:00 RDW 14.3 % (11.9-15.9) 07/05/18 07:00 Plt Count 231 K/MM3 (134-434) 07/05/18 07:00 MPV 7.9 fl (7.5-11.1) 07/05/18 07:00 Sodium 142 mmol/L (136-145) 07/05/18 07:00 Potassium 4.1 mmol/L (3.5-5.1) 07/05/18 07:00 Chloride 107 mmol/L (98-107) 07/05/18 07:00 Carbon Dioxide 30 mmol/L (21-32) 07/05/18 07:00 Anion Gap 5 (8-16) L 07/05/18 07:00 BUN 20 mg/dL (7-18) H 07/05/18 07:00 Creatinine 1.1 mg/dL (0.7-1.3) 07/05/18 07:00 Creat Clearance w eGFR > 60 (>60) 07/05/18 07:00 Random Glucose 67 mg/dL (74-106) L D 07/05/18 07:00 Calcium 8.1 mg/dL (8.5-10.1) L 07/05/18 07:00 Total Bilirubin 0.3 mg/dL (0.2-1.0) 07/05/18 07:00 AST 38 U/L (15-37) H D 07/05/18 07:00 ALT 23 U/L (12-78) D 07/05/18 07:00 Alkaline Phosphatase 72 U/L (45-117) 07/05/18 07:00 Total Protein 7.8 g/dl (6.4-8.2) 07/05/18 07:00 Albumin 3.0 g/dl (3.4-5.0) L 07/05/18 07:00 Urine Color Dkyellow 07/04/18 18:12 Urine Appearance Clear 07/04/18 18:12 Urine pH 6.0 (5.0-8.0) 07/04/18 18:12 Ur Specific [place] 1.024 (1.001-1.035) 07/04/18 18:12 Urine Protein 1+ (NEGATIVE) H 07/04/18 18:12 Urine Glucose (UA) Negative (NEGATIVE) 07/04/18 18:12 Urine Ketones Negative (NEGATIVE) 07/04/18 18:12 Urine Blood Negative (NEGATIVE) 07/04/18 18:12 Urine Nitrite Negative (NEGATIVE) 07/04/18 18:12 Urine Bilirubin Negative (<2.0 mg/dL) 07/04/18 18:12 Urine Urobilinogen 2.0 mg/dL (0.2-1.0) 07/04/18 18:12 Ur Leukocyte Esterase Negative (NEGATIVE) 07/04/18 18:12 Urine WBC (Auto) 4 /hpf (3-5) 07/04/18 18:12 Urine RBC (Auto) <1 /hpf (0-3) 07/04/18 18:12 Ur Epithelial Cells Rare /HPF (FEW) 07/04/18 18:12 Urine Mucus Rare 07/04/18 18:12 RPR Titer Nonreactive (NONREACTIVE) 07/05/18 07:00 Labs noted Assessment: 07/07/18 15:08 Withdrawal sx Plan: Continue detox
[2018-07-07] MEDS: chlordiazePOXIDE HCL 10 MG CAPSULE PO SCH (22:46)
[2018-07-07] MEDS: THIAMINE HCL 100 MG TABLET (FP) PO SCH (22:46)
[2018-07-08] MEDS: ALBUTEROL SO4 8 GM HFA INHALER IH SCH ×2 (01:02→01:06)
[2018-07-08] MEDS: chlordiazePOXIDE 5 MG CAPSULE PO SCH (01:02)
[2018-07-08] MEDS: chlordiazePOXIDE HCL 10 MG CAPSULE PO SCH ×2 (05:54→10:07)
[2018-07-08] MEDS ORDERED: METHADONE HCL 10 MG TABLET (FOR DETOX USE ONLY) PO SCH (10:00)
[2018-07-08] MEDS: PRENATAL VITAMINS W/ FOLIC ACID TABLET (FP) PO SCH (10:06)
[2018-07-08] MEDS: amLODIPine BESYLATE 5 MG TABLET (FP) PO SCH (10:06)
[2018-07-08] MEDS: DARUNAVIR ETHANOLATE 800 MG TAB PO SCH (10:06)
[2018-07-08] MEDS: RALTEGRAVIR POTASSIUM 400 MG TAB PO SCH (10:07)
[2018-07-08] MEDS: TAMSULOSIN HCL 0.4 MG CAP.ER.24H (FP) PO SCH (10:07)
[2018-07-08] MEDS: RITONAVIR 100 MG TABLET PO SCH (10:07)
[2018-07-08] MEDS: EMTRICITABINE 200MG/TENOFOVIR 300MG PO SCH (10:08)
[2018-07-08 10:49] VITALS: BP 108/74; PULSE 66; TEMP 98.2
[2018-07-08] MEDS: NICOTINE 21 MG/24 HOURS TOPICAL PATCH TD SCH (11:03)
--- NOTE | 2018-07-08 11:05 | PN ---
S Progress Note (SOAP) Subjective: alert,no complaint Objective: 07/08/18 11:02 Vital Signs Temperature 98.2 F 07/08/18 10:49 Pulse Rate 66 07/08/18 10:49 Respiratory Rate 18 07/08/18 10:49 Blood Pressure 108/74 07/08/18 10:49 O2 Sat by Pulse Oximetry (%) Assessment: 07/08/18 11:02 stable for discharge today,stated he has to go to work tomorrow Plan: discharge today,follow up with after care program as arrangement
--- NOTE | 2018-07-08 11:48 | DS ---
[facility] Detox Discharge Summary Admission Date: 07/04/18 Discharge Date: 07/08/18 - History Present History: Alcohol Dependence, Cocaine Dependence Pertinent Past History: asthma hypercholesterolemia copd type 2 dm history of atrial fibrillation hypertension positive ppd - Physical Exam Results Vital Signs: Vital Signs Temperature 98.2 F 07/08/18 10:49 Pulse Rate 66 07/08/18 10:49 Respiratory Rate 18 07/08/18 10:49 Blood Pressure 108/74 07/08/18 10:49 O2 Sat by Pulse Oximetry (%) Pertinent Admission Physical Exam Findings: withdrawal signs and symptom Vital Signs Temperature 98.2 F 07/08/18 10:49 Pulse Rate 66 07/08/18 10:49 Respiratory Rate 18 07/08/18 10:49 Blood Pressure 108/74 07/08/18 10:49 O2 Sat by Pulse Oximetry (%) Laboratory Last Values WBC 3.3 K/mm3 (4.0-10.0) L 07/05/18 07:00 RBC 4.28 M/mm3 (4.00-5.60) 07/05/18 07:00 Hgb 12.1 GM/dL (11.7-16.9) 07/05/18 07:00 Hct 37.0 % (35.4-49) 07/05/18 07:00 MCV 86.4 fl (80-96) 07/05/18 07:00 MCH 28.4 pg (25.7-33.7) 07/05/18 07:00 MCHC 32.8 g/dl (32.0-35.9) 07/05/18 07:00 RDW 14.3 % (11.9-15.9) 07/05/18 07:00 Plt Count 231 K/MM3 (134-434) 07/05/18 07:00 MPV 7.9 fl (7.5-11.1) 07/05/18 07:00 Sodium 142 mmol/L (136-145) 07/05/18 07:00 Potassium 4.1 mmol/L (3.5-5.1) 07/05/18 07:00 Chloride 107 mmol/L (98-107) 07/05/18 07:00 Carbon Dioxide 30 mmol/L (21-32) 07/05/18 07:00 Anion Gap 5 (8-16) L 07/05/18 07:00 BUN 20 mg/dL (7-18) H 07/05/18 07:00 Creatinine 1.1 mg/dL (0.7-1.3) 07/05/18 07:00 Creat Clearance w eGFR > 60 (>60) 07/05/18 07:00 Random Glucose 67 mg/dL (74-106) L D 07/05/18 07:00 Calcium 8.1 mg/dL (8.5-10.1) L 07/05/18 07:00 Total Bilirubin 0.3 mg/dL (0.2-1.0) 07/05/18 07:00 AST 38 U/L (15-37) H D 07/05/18 07:00 ALT 23 U/L (12-78) D 07/05/18 07:00 Alkaline Phosphatase 72 U/L (45-117) 07/05/18 07:00 Total Protein 7.8 g/dl (6.4-8.2) 07/05/18 07:00 Albumin 3.0 g/dl (3.4-5.0) L 07/05/18 07:00 Urine Color Dkyellow 07/04/18 18:12 Urine Appearance Clear 07/04/18 18:12 Urine pH 6.0 (5.0-8.0) 07/04/18 18:12 Ur Specific [place] 1.024 (1.001-1.035) 07/04/18 18:12 Urine Protein 1+ (NEGATIVE) H 07/04/18 18:12 Urine Glucose (UA) Negative (NEGATIVE) 07/04/18 18:12 Urine Ketones Negative (NEGATIVE) 07/04/18 18:12 Urine Blood Negative (NEGATIVE) 07/04/18 18:12 Urine Nitrite Negative (NEGATIVE) 07/04/18 18:12 Urine Bilirubin Negative (<2.0 mg/dL) 07/04/18 18:12 Urine Urobilinogen 2.0 mg/dL (0.2-1.0) 07/04/18 18:12 Ur Leukocyte Esterase Negative (NEGATIVE) 07/04/18 18:12 Urine WBC (Auto) 4 /hpf (3-5) 07/04/18 18:12 Urine RBC (Auto) <1 /hpf (0-3) 07/04/18 18:12 Ur Epithelial Cells Rare /HPF (FEW) 07/04/18 18:12 Urine Mucus Rare 07/04/18 18:12 RPR Titer Nonreactive (NONREACTIVE) 07/05/18 07:00 - Treatment Hospital Course: Detox Protocol Followed, Detoxed Safely, Responded well, Discharged Condition Good - Medication Discharge Medications: Ambulatory Orders Albuterol Sulfate Inhaler - [Ventolin HFA Inhaler -] 2 inh PO Q6H 07/07/16 Amlodipine Besylate [Norvasc -] 5 mg PO DAILY 07/07/16 Darunavir Ethanolate [Prezista -] 800 mg PO DAILY 07/07/16 Emtricitabine/Tenofovir [Truvada -] 1 tab PO DAILY 07/07/16 Raltegravir [Isentress] 400 mg PO BID 07/07/16 Ritonavir [Norvir -] 100 mg PO DAILY 07/07/16 Tamsulosin HCl [Flomax -] 0.4 mg PO DAILY 07/07/16 Testosterone [Androgel -] 5 gm TD DAILY 03/29/18 Buprenorphine HCl/Naloxone HCl [Suboxone 8 mg-2 mg Sl Tablets] 1 each SL TID 08/13 - Diagnosis (1) Opioid dependence with withdrawal Current Visit: Yes Status: Acute (2) Alcohol dependence with withdrawal Current Visit: Yes Status: Acute Qualifiers: Complication of substance-induced condition: uncomplicated (3) Asthma Current Visit: Yes Status: Chronic Qualifiers: Asthma severity: mild (4) Benign prostatic hyperplasia (BPH) with straining on urination Current Visit: Yes Status: Chronic (5) COPD (chronic obstructive pulmonary disease) Current Visit: Yes Status: Chronic Qualifiers: COPD type: chronic bronchitis (6) Cocaine dependence Current Visit: Yes Status: Chronic Qualifiers: Substance use status: uncomplicated (7) HIV (human immunodeficiency virus infection) Current Visit: Yes Status: Chronic (8) Hypertension Current Visit: Yes Status: Chronic Qualifiers: Hypertension type: essential hypertension (9) Hepatitis C Current Visit: No Status: Resolved Qualifiers: Viral hepatitis chronicity: carrier Qualified Code(s): B18.2 - Chronic viral hepatitis C - AMA Did Patient Leave Against Medical Advice: No
[2018-07-09] MEDS ORDERED: METHADONE HCL 5 MG TABLET (FOR DETOX USE ONLY) PO SCH (06:00)
== END 2018-07-08 11:31 | disposition home or self-care (01) | DRG 773 ==
LOC: YASAS 13:21 → Y6N 17:08
PROVIDERS: ADMIT Surgery; ATTEND Surgery
PROC: HZ2ZZZZ Detoxification Services for Substance Abuse Treatment (ICD-10-PCS; principal; 2018-07-04)
DX: F11.23 Opioid dependence with withdrawal (principal); F10.230 Alcohol dependence with withdrawal, uncomplicated; F14.20 Cocaine dependence, uncomplicated; F17.213 Nicotine dependence, cigarettes, with withdrawal; F19.24 Other psychoactive substance dependence with psychoactive substance-induced mood disorder; J45.909 Unspecified asthma, uncomplicated; N40.0 Benign prostatic hyperplasia without lower urinary tract symptoms; J44.9 Chronic obstructive pulmonary disease, unspecified; Z21 Asymptomatic human immunodeficiency virus [HIV] infection status; I10 Essential (primary) hypertension; B18.2 Chronic viral hepatitis C; Z88.8 Allergy status to other drugs, medicaments and biological substances; Z91.013 Allergy to seafood
CPT/HCPCS: 36415; 80053; 81003; 81015; 85027; 86593; 93005; 93010

== ENCOUNTER 2019-01-06 10:52 | Inpatient (IN) | payer OTHER ==
[2019-01-06 11:19] VITALS: BMI 25.0
--- NOTE | 2019-01-06 13:19 | HP ---
CIWA Score Nausea/Vomitin Muscle Tremors: 2 Anxiety: 2 Agitation: 2 Paroxysmal Sweats: 1-Minimal Palms Moist Orientation: 0-Oriented Tacttile Disturbances: 1-Very Mild Itch/Numbness Auditory Disturbances: 1-Very Mild Visual Disturbances: 0-None Headache: 2-Mild CIWA-Ar Total Score: 13 - Admission Criteria OASAS Guidelines: Admission for Medically Managed Detox: Requires at least one of the followin. CIWA greater than 12 2. Seizures within the past 24 hours 3. Delirium tremens within the past 24 hours 4. Hallucinations within the past 24 hours 5. Acute intervention needed for co occurring medical disorder 6. Acute intervention needed for co occurring psychiatric disorder 7. Severe withdrawal that cannot be handled at a lower level of care (continued vomiting, continued diarrhea, abnormal vital signs) requiring intravenous medication and/or fluids 8. Patient presents the following: CIWA greater than 12 Admission Criteria Met: Admission criteria met Admission ROS S - [facility] Chief Complaint: i need help to stop drinking alcohol,cocaine,marijuana dependence,heroin,on suboxone 8mgs/2mgs tid ,nono compliance Allergies/Adverse Reactions: Allergies Allergy/AdvReac Type Severity Reaction Status Date / Time heparin Allergy Severe Rash Verified 01/06/19 12:13 ibuprofen Allergy Severe Rash Verified 01/06/19 12:13 prochlorperazine Allergy Severe Rash Verified 01/06/19 12:13 [From Compazine] prochlorperazine edisylate Allergy Severe Rash Verified 07/07/16 17:36 [From Compazine] prochlorperazine maleate Allergy Severe Rash Verified 01/06/19 12:13 [From Compazine] SEAFOOD Allergy Severe Rash Uncoded 01/06/19 12:13 History of Present Illness: this 59 years old male with alcohol,cocaine and marijuana dependence,seeking detox,on suboxone maintanance 8mgs/2 mgs sl film tid,non compliance last treatment [facility] 07/04/18 to 07/03/13 syncope hypertension on med hepatitis c nicotine dependence longest period of sobriety 3 years Exam Limitations: No Limitations - Ebola screening Have you traveled outside of the country in the last 21 days: No Have you had contact with anyone from an Ebola affected area: No Have you been sick,other than usual withdrawal symptoms: No Do you have a fever: No - Review of Systems Constitutional: Chills, Loss of Appetite, Malaise, Night Sweats, Changes in sleep, Weakness EENT: reports: Tearing, Nose Congestion Respiratory: reports: No Symptoms reported Cardiac: reports: No Symptoms Reported GI: reports: Nausea, Indigestion, Abdominal cramping : reports: No Symptoms Reported Musculoskeletal: reports: Back Pain, Muscle Pain Integumentary: reports: Dryness Neuro: reports: Headache, Tremors Endocrine: reports: No Symptoms Reported Hematology: reports: No Symptoms Reported Psychiatric: reports: No Sypmtoms Reported, Judgement Intact, Mood/Affect Appropiate, Orientated x3 Other Systems: Reviewed and Negative Patient History - Patient Medical History Hx Anemia: No Hx Asthma: Yes Hx Chronic Obstructive Pulmonary Disease (COPD): No Hx Cancer: No Hx Cardiac Disorders: No Hx Congestive Heart Failure: No Hx Hypertension: Yes (on med) Hx Hypercholesterolemia: No Hx Pacemaker: No HX Cerebrovascular Accident: No Hx Seizures: No Hx Dementia: No Hx Diabetes: No Hx Gastrointestinal Disorders: No Hx Liver Disease: No Hx Genitourinary Disorders: No Hx Sexually Transmitted Disorders: Yes (syphilis) Hx Renal Disease (ESRD): No Hx Thyroid Disease: No Hx Human Immunodeficiency Virus (HIV): Yes (2000 no med) Hx Hepatitis C: Yes (2001. States Hep C is cured.) Hx Depression: No Hx Suicide Attempt: No Hx Bipolar Disorder: No Hx Schizophrenia: No Other Medical History: no suicidal,no homicidal - Patient Surgical History Past Surgical History: No Hx Neurologic Surgery: No Hx Cataract Extraction: No Hx Cardiac Surgery: No Hx Lung Surgery: No Hx Breast Surgery: No Hx Breast Biopsy: No Hx Abdominal Surgery: No Hx Appendectomy: No Hx Cholecystectomy: No Hx Genitourinary Surgery: No Hx Section: No Hx Orthopedic Surgery: No Anesthesia Reaction: No - PPD History Previous Implant?: Yes Implanted On Prior R Admission?: Yes Date: 03/31/18 Results: 0 mm PPD to be Administered?: No - Smoking Cessation Smoking history: Current every day smoker Have you smoked in the past 12 months: Yes Aproximately how many cigarettes per day: 4 Hx Chewing Tobacco Use: No Initiated information on smoking cessation: Yes 'Breaking Loose' booklet given: 01/06/19 - Substance & Tx. History Hx Alcohol Use: Yes Hx Substance Use: Yes Substance Use Type: Alcohol, Cocaine, Heroin, Marijuana Hx Substance Use Treatment: Yes ([facility] 07/04/18 to 07/08/18) - Substances Abused Heroin Route: Injection Frequency: Daily Amount used: 4 bags Age of first use: 41 Date of Last Use: 01/05/19 Cocaine Route: Injection Frequency: Daily Amount used: $100 Age of first use: 41 Date of Last Use: 01/05/19 Alcoghol-beer/vodka Route: Oral Frequency: Daily Amount used: 1-6 pk./1 1/2 pts. Age of first use: 15 Date of Last Use: 01/06/19 Marijuana/Hashish Route: Smoking Frequency: Daily Amount used: 40$ Age of first use: 14 Date of Last Use: 01/05/19 Family Disease History - Family Disease History Family Disease History: CA: Father (), Respiratory: Mother, Other: Son ( KILLED) Admission Physical Exam S - Vital Signs Vital Signs: Vital Signs - 24 hr 01/06/19 11:18 Temperature 97.9 F Pulse Rate 64 Respiratory 18 Rate Blood Pressure 121/84 - Physical General Appearance: Yes: Moderate Distress, Tremorous, Irritable, Sweating, Anxious HEENTM: Yes: Normal ENT Inspection, JOHANNA, Pharynx Normal Respiratory: Yes: Within Normal Limits, Lungs Clear, Normal Breath Sounds Neck: Yes: Within Normal Limits, Supple, Trachea in good position Breast: Yes: Within Normal Limits Cardiology: Yes: Within Normal Limits, Regular Rhythm, Regular Rate, S1, S2 Abdominal: Yes: Within Normal Limits, Normal Bowel Sounds, Non Tender, Flat, Soft Genitourinary: Yes: Within Normal Limits Back: Yes: Muscle Spasm Musculoskeletal: Yes: full range of Motion, Back pain, Muscle Pain Extremities: Yes: Tremors Neurological: Yes: stoker erector II-XII NML intact, Fully Oriented, Alert, Motor Strength 5/5 Integumentary: Yes: Dry Lymphatic: Yes: Within Normal Limits - Diagnostic (1) Heroin abuse Current Visit: Yes Status: Acute (2) Alcohol dependence with withdrawal Current Visit: No Status: Acute Qualifiers: Complication of substance-induced condition: uncomplicated (3) Cocaine dependence Current Visit: No Status: Chronic Qualifiers: Substance use status: uncomplicated (4) HIV (human immunodeficiency virus infection) Current Visit: No Status: Chronic (5) Hypertension Current Visit: No Status: Chronic Qualifiers: Hypertension type: essential hypertension (6) Marijuana dependence Current Visit: No Status: Chronic (7) Nicotine dependence Current Visit: No Status: Chronic Qualifiers: Nicotine product type: cigarettes Substance use status: in withdrawal Qualified Code(s): F17.213 - Nicotine dependence, cigarettes, with withdrawal (8) Hepatitis C Current Visit: No Status: Resolved Qualifiers: Viral hepatitis chronicity: carrier Qualified Code(s): B18.2 - Chronic viral hepatitis C (9) Encounter for monitoring Suboxone maintenance therapy Current Visit: Yes Status: Acute (10) Weight loss Current Visit: Yes Status: Acute Cleared for Admission S - Detox or Rehab [facility] Level of Care: Medically Managed Detox Regimen/Protocol: Librium S Breath Alcohol Content Breath Alcohol Content: 0.035 Urine Drug Screen - Results Drug Screen Negative: No Urine Drug Screen Results: THC-Marijuana, TEENA-Cocaine, OPI-Opiates, FEN-Fentanyl , BUP-Suboxone Inpatient Rehab Admission - Rehab Decision to Admit Inpatient rehab admission?: No
[2019-01-06] MEDS ORDERED: IBUPROFEN 400 MG TABLET (FP) PO PRN (13:27)
[2019-01-06] MEDS ORDERED: P-EPHED 60MG/TRIPROLIDI 2.5MG TABLET PO PRN (13:27)
[2019-01-06] MEDS ORDERED: MAG HYDROX/AL HYDROX/SIMETH 30 ML UNIT-DOSE CUP PO PRN (13:27)
[2019-01-06] MEDS ORDERED: guaiFENesin/D-METHORPHAN HB 10 ML UNIT-DOSE CUPS PO PRN (13:27)
[2019-01-06] MEDS ORDERED: MENTHOL/PHENOL 1 EACH UD MM PRN (13:27)
[2019-01-06] MEDS ORDERED: chlordiazePOXIDE HCL 25 MG CAPSULE PO PRN (13:27)
[2019-01-06] MEDS ORDERED: ACETAMINOPHEN 325 MG TABLET (FP) PO PRN (13:27)
[2019-01-06] MEDS ORDERED: MAGNESIUM HYDROX 2400MG/30ML ORAL SUSPENSION 30 ML CUP PO PRN (13:27)
[2019-01-06] MEDS ORDERED: LOPERAMIDE HCL 2 MG CAPSULE PO PRN (13:27)
[2019-01-06] MEDS ORDERED: MAGNESIUM CITRATE 300 ML BOTTLE PO PRN (13:27)
[2019-01-06] MEDS ORDERED: ALBUTEROL SO4 8 GM HFA INHALER IH PRN (13:30)
[2019-01-06] MEDS: BUPRENORPHINE/NALOXONE 8 MG/2 MG FILM PACKET SL SCH ×2 (15:11→22:09)
[2019-01-06] MEDS: chlordiazePOXIDE HCL 25 MG CAPSULE PO SCH ×2 (17:06→22:09)
[2019-01-06] MEDS ORDERED: MELATONIN 5 MG TABLETS PO PRN (22:00)
[2019-01-06] MEDS: THIAMINE HCL 100 MG TABLET (FP) PO SCH (22:09)
[2019-01-06 23:16] LABS: URINE APPEARANCE CLEAR; URINE BILIRUBIN NEGATIVE (<2.0 mg/dL); URINE COLOR YELLOW; URINE GLUCOSE (UA) NEGATIVE (NEGATIVE); URINE KETONE NEGATIVE (NEGATIVE); URINE LEUK ESTERASE NEGATIVE (NEGATIVE); URINE NITRITE NEGATIVE (NEGATIVE); URINE PROTEIN 1+ (NEGATIVE); URINE UROBILINOGEN 4.0 E.U/dl mg/dL (0.2-1.0)
[2019-01-06 23:46] LABS: EPI CELLS RARE /HPF (FEW); URINE MUCUS RARE
[2019-01-07] MEDS: chlordiazePOXIDE HCL 25 MG CAPSULE PO SCH ×4 (06:41→22:25)
[2019-01-07] MEDS: BUPRENORPHINE/NALOXONE 8 MG/2 MG FILM PACKET SL SCH ×3 (06:41→22:05)
--- NOTE | 2019-01-07 09:17 | PN ---
[facility] CIWA - CIWA Score Nausea/Vomitin Muscle Tremors: 2 Anxiety: 2 Agitation: 2 Paroxysmal Sweats: 1-Minimal Palms Moist Orientation: 0-Oriented Tacttile Disturbances: 1-Very Mild Itch/Numbness Auditory Disturbances: 1-Very Mild Visual Disturbances: 0-None Headache: 2-Mild CIWA-Ar Total Score: 13 [facility] Progress Note (SOAP) Subjective: alert,irritable,anxious,interrupted sleep,tremor Objective: 01/07/19 09:14 Vital Signs Temperature 97.9 F 01/07/19 09:06 Pulse Rate 60 01/07/19 09:06 Respiratory Rate 18 01/07/19 09:06 Blood Pressure 113/71 01/07/19 09:06 O2 Sat by Pulse Oximetry (%) labs pending Assessment: 01/07/19 09:14 withdrawal symptom Plan: continue detox,zantac 150 mgs po bid for gerd
[2019-01-07 10:48] LABS: HEMOGLOBIN 13.4 GM/dL (11.7-16.9); MCH 27.9 pg (25.7-33.7); MCHC 32.8 g/dl (32.0-35.9); MEAN CELL VOLUME 85.1 fl (80-96); MEAN PLT VOLUME 8.5 fl (7.5-11.1); PLATELET COUNT 213 K/MM3 (134-434); RBC 4.81 M/mm3 (4.00-5.60); RDW 14.4 % (11.9-15.9); WHITE BLOOD COUNT 3.4 K/mm3 (4.0-10.0)
[2019-01-07] MEDS: TAMSULOSIN HCL 0.4 MG CAP PO SCH (10:48)
[2019-01-07] MEDS: PRENATAL VITAMINS W/ FOLIC ACID TABLET (FP) PO SCH (10:48)
[2019-01-07] MEDS: amLODIPine BESYLATE 5 MG TABLET (FP) PO SCH (10:48)
[2019-01-07] MEDS: RANITIDINE HCL 150 MG TABLET (FP) PO SCH ×2 (10:49→22:04)
[2019-01-07] MEDS: hydrOXYzine PAMOATE 25 MG CAPSULE (FP) PO PRN (10:49)
[2019-01-07 11:05] LABS: ALBUMIN 3.4 g/dl (3.4-5.0); ALK PHOS 130 U/L (45-117); ANION GAP 5 MMOL/L (8-16); BILIRUBIN,TOTAL 0.3 mg/dL (0.2-1); BLOOD UREA NITROGEN 16 mg/dL (7-18); CALCIUM 8.5 mg/dL (8.5-10.1); CHLORIDE 104 mmol/L (98-107); CO2 26 mmol/L (21-32); CREATININE 1.1 mg/dL (0.55-1.3); GLUCOSE,RANDOM 91 mg/dL (74-106); POTASSIUM 4.5 mmol/L (3.5-5.1); SGOT/AST 34 U/L (15-37); SGPT/ALT 24 U/L (13-61); SODIUM 135 mmol/L (136-145); TOT PROT 9.4 g/dl (6.4-8.2)
[2019-01-07] MEDS: THIAMINE HCL 100 MG TABLET (FP) PO SCH (22:04)
[2019-01-08] MEDS: chlordiazePOXIDE HCL 25 MG CAPSULE PO SCH ×2 (06:04→10:10)
[2019-01-08] MEDS: BUPRENORPHINE/NALOXONE 8 MG/2 MG FILM PACKET SL SCH ×3 (07:13→22:31)
[2019-01-08] MEDS: RANITIDINE HCL 150 MG TABLET (FP) PO SCH ×2 (10:09→22:31)
[2019-01-08] MEDS: TAMSULOSIN HCL 0.4 MG CAP PO SCH (10:09)
[2019-01-08] MEDS: amLODIPine BESYLATE 5 MG TABLET (FP) PO SCH (10:09)
[2019-01-08] MEDS: PRENATAL VITAMINS W/ FOLIC ACID TABLET (FP) PO SCH (10:09)
--- NOTE | 2019-01-08 12:24 | EKG ---
Test Reason : Blood Pressure : / mmHG Vent. Rate : 055 BPM Atrial Rate : 055 BPM P-R Int : 160 ms QRS Dur : 102 ms QT Int : 432 ms P-R-T Axes : 031 -12 017 degrees QTc Int : 413 ms SINUS BRADYCARDIA OTHERWISE NORMAL ECG WHEN COMPARED WITH ECG OF 04-JUL-2018 18:18, NO SIGNIFICANT CHANGE WAS FOUND Confirmed by MARY QUIJANO MD ([id number]) on 01/08/2019 12:24:08 PM Referred By: CHELLE HESTER Confirmed By:MARY QUIJANO MD
[2019-01-08] MEDS: LIDOCAINE 5% TOPICAL PATCH TP SCH (12:44)
--- NOTE | 2019-01-08 14:33 | PN ---
[facility] CIWA - CIWA Score Nausea/Vomitin-No Nausea/No Vomiting Muscle Tremors: None Anxiety: 3 Agitation: 1-Slight > Activity Paroxysmal Sweats: 2 Orientation: 0-Oriented Tacttile Disturbances: 0-None Auditory Disturbances: 2-Mild Harshness/Frighten Visual Disturbances: 2-Mild Sensitivity Headache: 3-Moderate CIWA-Ar Total Score: 13 S Progress Note (SOAP) Subjective: Body Aches, Sweating, H/A. Objective: PATIENT A & O X 3, OBSERVED AMBULATING ON UNIT. IN NO ACUTE DISTRESS. PATIENT REPORTS INTERMITTENT CHEST DISCOMFORT (PATIENT POINTS TO LEFT SIDE OF CHEST) FOR LAST 2 DAYS. PATIENT REPORTS HISTORY OF SIMILAR OCCURRENCE IN PAST. ECG DONE: RESULT: SINUS BRADYCARDIA. PATIENT WAS STARTED ON ZANTAC BID FOR ACID REFLUX YESTERDAY. PATIENT ALSO REPORTS HISTORY OF ASTHMA. 01/08/19 14:32 Vital Signs Temperature 98.4 F 01/08/19 13:35 Pulse Rate 73 01/08/19 13:35 Respiratory Rate 18 01/08/19 13:35 Blood Pressure 138/87 01/08/19 13:35 O2 Sat by Pulse Oximetry (%) Laboratory Tests 01/06/19 01/07/19 01/07/19 22:25 05:50 05:50 WBC 3.4 L RBC 4.81 Hgb 13.4 Hct 41.0 MCV 85.1 MCH 27.9 MCHC 32.8 RDW 14.4 Plt Count 213 MPV 8.5 Sodium 135 L Potassium 4.5 Chloride 104 Carbon Dioxide 26 Anion Gap 5 L BUN 16 Creatinine 1.1 Creat Clearance w eGFR > 60 Random Glucose 91 Calcium 8.5 Total Bilirubin 0.3 AST 34 ALT 24 Alkaline Phosphatase 130 H Total Protein 9.4 H Albumin 3.4 Urine Color Yellow Urine Appearance Clear Urine pH 6.0 Ur Specific [place] 1.023 Urine Protein 1+ H Urine Glucose (UA) Negative Urine Ketones Negative Urine Blood Negative Urine Nitrite Negative Urine Bilirubin Negative Urine Urobilinogen 4.0 e.u/dl Ur Leukocyte Esterase Negative Urine WBC (Auto) 1 Urine RBC (Auto) <1 Ur Epithelial Cells Rare Urine Mucus Rare RPR Titer 01/07/19 05:50 WBC RBC Hgb Hct MCV MCH MCHC RDW Plt Count MPV Sodium Potassium Chloride Carbon Dioxide Anion Gap BUN Creatinine Creat Clearance w eGFR Random Glucose Calcium Total Bilirubin AST ALT Alkaline Phosphatase Total Protein Albumin Urine Color Urine Appearance Urine pH Ur Specific [place] Urine Protein Urine Glucose (UA) Urine Ketones Urine Blood Urine Nitrite Urine Bilirubin Urine Urobilinogen Ur Leukocyte Esterase Urine WBC (Auto) Urine RBC (Auto) Ur Epithelial Cells Urine Mucus RPR Titer Nonreactive LABS NOTED. Assessment: 01/08/19 14:37 WITHDRAWAL SYMPTOMS. Plan: CONTINUE DETOX. PATIENT ADVISED TO FOLLOW-UP WITH [facility] ([place], [place]) AFTER DISCHARGE FROM DETOX UNIT FOR FURTHER MEDICAL EVALUATION FOR HISTORY OF CHEST PAIN. PATIENT VERBALIZED UNDERSTANDING OF RECOMMENDATION.
[2019-01-08] MEDS: chlordiazePOXIDE 5 MG CAPSULE PO SCH ×2 (17:03→22:30)
[2019-01-08] MEDS: hydrOXYzine PAMOATE 25 MG CAPSULE (FP) PO PRN (22:31)
[2019-01-08] MEDS: THIAMINE HCL 100 MG TABLET (FP) PO SCH (22:32)
[2019-01-08] MEDS: LIDOCAINE PATCH REMOVAL MC SCH (22:34)
[2019-01-09] MEDS: chlordiazePOXIDE 5 MG CAPSULE PO SCH ×2 (06:25→12:04)
[2019-01-09] MEDS: BUPRENORPHINE/NALOXONE 8 MG/2 MG FILM PACKET SL SCH ×3 (06:25→23:17)
--- NOTE | 2019-01-09 09:17 | PN ---
S Progress Note (SOAP) Subjective: alert,interrupted sleep Objective: 01/09/19 09:16 Vital Signs Temperature 98.6 F 01/09/19 09:01 Pulse Rate 68 01/09/19 09:01 Respiratory Rate 18 01/09/19 09:01 Blood Pressure 114/82 01/09/19 09:01 O2 Sat by Pulse Oximetry (%) Assessment: 01/09/19 09:16 withdrawal symptom Plan: continue detox,discharge in am
[2019-01-09] MEDS: TAMSULOSIN HCL 0.4 MG CAP PO SCH (12:03)
[2019-01-09] MEDS: amLODIPine BESYLATE 5 MG TABLET (FP) PO SCH (12:03)
[2019-01-09] MEDS: RANITIDINE HCL 150 MG TABLET (FP) PO SCH ×2 (12:03→22:13)
[2019-01-09] MEDS: PRENATAL VITAMINS W/ FOLIC ACID TABLET (FP) PO SCH (12:03)
[2019-01-09] MEDS: LIDOCAINE 5% TOPICAL PATCH TP SCH (12:04)
--- NOTE | 2019-01-09 17:49 | PN ---
[facility] Progress Note Note: Vital Signs Temperature 97.7 F 01/09/19 17:23 Pulse Rate 64 01/09/19 17:23 Respiratory Rate 18 01/09/19 17:23 Blood Pressure 120/89 01/09/19 17:23 O2 Sat by Pulse Oximetry (%) Patient missed mid day dose of Suboxone 8mg. One time dose ordered. continue to monitor
[2019-01-09] MEDS ORDERED: BUPRENORPHINE/NALOXONE 8 MG/2 MG FILM PACKET SL ONE (18:00)
[2019-01-09] MEDS: chlordiazePOXIDE HCL 10 MG CAPSULE PO SCH ×2 (18:04→23:16)
[2019-01-09] MEDS: THIAMINE HCL 100 MG TABLET (FP) PO SCH (22:13)
[2019-01-09] MEDS: LIDOCAINE PATCH REMOVAL MC SCH (23:16)
[2019-01-10 06:11] VITALS: BP 122/74
[2019-01-10] MEDS: chlordiazePOXIDE HCL 10 MG CAPSULE PO SCH ×2 (06:17→10:40)
[2019-01-10] MEDS: BUPRENORPHINE/NALOXONE 8 MG/2 MG FILM PACKET SL SCH (06:17)
[2019-01-10 09:14] VITALS: PULSE 69; TEMP 98.3
--- NOTE | 2019-01-10 09:15 | DS ---
[facility] Detox Discharge Summary Admission Date: 01/06/19 Discharge Date: 01/10/19 - History Present History: Opioid Dependence - Physical Exam Results Vital Signs: Vital Signs Temperature 98.1 F 01/10/19 06:10 Pulse Rate 59 L 01/10/19 06:10 Respiratory Rate 16 01/10/19 06:10 Blood Pressure 122/74 01/10/19 06:10 O2 Sat by Pulse Oximetry (%) - Treatment Hospital Course: Detox Protocol Followed, Detoxed Safely, Responded well, Discharged Condition Good, Rehab Referral Accepted - Medication Discharge Medications: Ambulatory Orders Albuterol Sulfate Inhaler - [Ventolin HFA Inhaler -] 2 inh PO Q4H PRN 07/07/16 Amlodipine Besylate [Norvasc -] 5 mg PO DAILY 07/07/16 Tamsulosin HCl [Flomax -] 0.4 mg PO DAILY 07/07/16 Bictegrav/Emtricit/Tenofov Ala [Biktarvy 50-200-25 mg Tablet] 1 each PO DAILY Buprenorphine/Naloxone [Suboxone 8Mg/2Mg Sl Film -] 1 each SL TID 01/06/19 - Diagnosis (1) Encounter for monitoring Suboxone maintenance therapy Current Visit: Yes Status: Chronic (2) Heroin abuse Current Visit: Yes Status: Acute (3) Weight loss Current Visit: Yes Status: Acute (4) Alcohol dependence with withdrawal Current Visit: Yes Status: Chronic Qualifiers: Complication of substance-induced condition: uncomplicated (5) Depression (emotion) Current Visit: No Status: Acute (6) Opioid dependence with withdrawal Current Visit: Yes Status: Chronic (7) Asthma Current Visit: Yes Status: Chronic Qualifiers: Asthma severity: mild Asthma persistence: unspecified Asthma complication type: unspecified Qualified Code(s): J45.909 - Unspecified asthma , uncomplicated (8) Benign prostatic hyperplasia (BPH) with straining on urination Current Visit: No Status: Chronic (9) COPD (chronic obstructive pulmonary disease) Current Visit: Yes Status: Chronic Qualifiers: COPD type: chronic bronchitis (10) Cocaine dependence Current Visit: Yes Status: Chronic Qualifiers: Substance use status: uncomplicated (11) HIV (human immunodeficiency virus infection) Current Visit: Yes Status: Chronic Qualifiers: HIV symptom status: unspecified Qualified Code(s): B20 - Human immunodeficiency virus [HIV] disease (12) Hypertension Current Visit: Yes Status: Chronic Qualifiers: Hypertension type: essential hypertension (13) Insomnia Current Visit: No Status: Chronic Qualifiers: Insomnia type: unspecified Qualified Code(s): G47.00 - Insomnia, unspecified (14) Marijuana dependence Current Visit: Yes Status: Chronic (15) Nicotine dependence Current Visit: Yes Status: Chronic Qualifiers: Nicotine product type: cigarettes Substance use status: uncomplicated Qualified Code(s): F17.210 - Nicotine dependence, cigarettes, uncomplicated (16) Opiate dependence, continuous Current Visit: No Status: Chronic (17) Substance induced mood disorder Current Visit: No Status: Chronic (18) Hepatitis C Current Visit: Yes Status: Resolved Qualifiers: Viral hepatitis chronicity: carrier Qualified Code(s): B18.2 - Chronic viral hepatitis C - AMA Did Patient Leave Against Medical Advice: No (going back to his program)
[2019-01-10] MEDS: amLODIPine BESYLATE 5 MG TABLET (FP) PO SCH (10:00)
[2019-01-10] MEDS: TAMSULOSIN HCL 0.4 MG CAP PO SCH (10:00)
[2019-01-10] MEDS: PRENATAL VITAMINS W/ FOLIC ACID TABLET (FP) PO SCH (10:00)
[2019-01-10] MEDS: LIDOCAINE 5% TOPICAL PATCH TP SCH (10:40)
== END 2019-01-10 09:35 | disposition home or self-care (01) | DRG 773 ==
LOC: YASAS 10:52 → Y6N 13:53
PROVIDERS: ADMIT Surgery; ATTEND Surgery
PROC: HZ2ZZZZ Detoxification Services for Substance Abuse Treatment (ICD-10-PCS; principal; 2019-01-06)
DX: F11.23 Opioid dependence with withdrawal (principal); F10.230 Alcohol dependence with withdrawal, uncomplicated; F14.20 Cocaine dependence, uncomplicated; F12.20 Cannabis dependence, uncomplicated; F17.210 Nicotine dependence, cigarettes, uncomplicated; Z21 Asymptomatic human immunodeficiency virus [HIV] infection status; I10 Essential (primary) hypertension; R55 Syncope and collapse; J45.909 Unspecified asthma, uncomplicated; R63.4 Abnormal weight loss; Z68.25 Body mass index [BMI] 25.0-25.9, adult; Z86.19 Personal history of other infectious and parasitic diseases; Z51.81 Encounter for therapeutic drug level monitoring; Z88.8 Allergy status to other drugs, medicaments and biological substances; Z91.013 Allergy to seafood
CPT/HCPCS: 36415; 80053; 81003; 81015; 85027; 86593; 93005; 93010

== ENCOUNTER 2019-06-06 15:25 | Inpatient (IN) | payer OTHER ==
[2019-06-06 20:36] VITALS: BMI 23.1
--- NOTE | 2019-06-06 22:26 | HP ---
COWS - Scale Resting Pulse: 0= ID 80 or Below Sweatin= Chills/Flushing Restless Observation: 3= Extraneous Movement Pupil Size: 0= Normal to Room Light Bone or Joint Aches: 0= None Runny Nose/ Eye Tearin= Nasal Congestion GI Upset > 30mins: 0= None Tremor Observation: 2= Slight Tremor Visible Yawning Observation: 0= None Anxiety or Irritability: 1=Feels Anxious/Irritable Goose Flesh Skin: 0=Smooth Skin COWS Score: 8 CIWA Score Nausea/Vomitin-No Nausea/No Vomiting Muscle Tremors: 4-Moderate,w/Arms Extend Anxiety: 4-Mod. Anxious/Guarded Agitation: 1-Slight > Activity Paroxysmal Sweats: 3 (Increased facial moisture) Orientation: 0-Oriented Tacttile Disturbances: 0-None Auditory Disturbances: 0-None Visual Disturbances: 0-None Headache: 0-None Present CIWA-Ar Total Score: 12 - Admission Criteria OAS Guidelines: Admission for Medically Managed Detox: Requires at least one of the followin. CIWA greater than 12 2. Seizures within the past 24 hours 3. Delirium tremens within the past 24 hours 4. Hallucinations within the past 24 hours 5. Acute intervention needed for co occurring medical disorder 6. Acute intervention needed for co occurring psychiatric disorder 7. Severe withdrawal that cannot be handled at a lower level of care (continued vomiting, continued diarrhea, abnormal vital signs) requiring intravenous medication and/or fluids 8. Patient presents the following: CIWA greater than 12 Admission Criteria Met: Admission criteria met Admission ROS [facility] Chief Complaint: I'm having alcohol and heroin withdrawal. Allergies/Adverse Reactions: Allergies Allergy/AdvReac Type Severity Reaction Status Date / Time heparin Allergy Severe Rash Verified 06/06/19 20:28 ibuprofen Allergy Severe Rash Verified 06/06/19 20:28 prochlorperazine Allergy Severe Rash Verified 06/06/19 20:28 [From Compazine] prochlorperazine edisylate Allergy Severe Rash Verified 07/07/16 17:36 [From Compazine] prochlorperazine maleate Allergy Severe Rash Verified 01/06/19 12:13 [From Compazine] SEAFOOD Allergy Severe Rash Uncoded 06/06/19 20:28 History of Present Illness: 59 yo presents for detox w/ alcohol withdrawal and poly-substance use disorder. Stayed sober for 60 days after last discharge from [facility]. Alcohol use since age 15. States current use is x 1 year. Marijuana use since age 14. Cocaine use since age 31's; Crack use since age 49. Opiates use since age 41. Currently uses IV. States does not share needles or works. Continues to relapse w/ opiates. On prescribed Suboxone. Patient aware Suboxone will be restarted in a.m. Nicotine use since age 21. Smokes 3 cigarettes/day. Denies seizures. Hx: Blackouts - last 2 months ago. States multiple overdoses. Last overdose 1 month ago. States lives in [facility] that has Narcan on all floors. Overdose risks and reductions discussed. PMHx: Hypertension: Hepatitis C; HIV+; Asthma, Enlarged Prostate; Facial/Neck mass- states has a referral from PCP for evaluation. Has not made an appointment yet. States mass present x 3 weeks. States has had mass on (R) side in past, 3 years ago, and it was treated w/ radiation. States when finishes detox will f/u w/ referral. Strongly encouraged to f/u as soon as possible. Last EGG 01/08/19. - Showed Sinus Bradycardia Last PPD 03/31/18: Denies recent incarceration, prison, or homelessness. MHHx: Anxiety, Insomnia (on Trazodone). Denies depression. Denies thoughts of harming self or others. Last swa a MH Provider 1 week ago. Patient Name: Kana Campbell Date: 1960 Address: [address] [place] [address] Sex: Male Rx Written Rx Dispensed Drug Quantity Days Supply Prescriber Name 06/02/2019 06/02/2019 buprenorphine-naloxone 8-2 mg sl film 90 30 Misti Benavidez [employer] SHIPMENT CLERK 05/06/2019 05/06/2019 buprenorphine-naloxone 8-2 mg sl film 90 30 Misti Benavidez NP 04/14/2019 04/22/2019 testosterone 1.62% (2.5 g) pkt 75gm 30 Misti Benavidez NP 04/07/2019 04/07/2019 buprenorphine-naloxone 8-2 mg sl film 90 30 Yifan Welch) 03/03/2019 03/11/2019 buprenorphine-naloxone 8-2 mg sl film 90 30 PramodMisti NP 01/13/2019 02/10/2019 suboxone 8 mg-2 mg sl film 90 30 SwiMisti NP 01/13/2019 01/13/2019 suboxone 8 mg-2 mg sl film 90 30 Swido Misti Call NP 12/13/2018 12/13/2018 suboxone 8 mg-2 mg sl film 90 30 SwiMisti NP 11/12/2018 11/12/2018 suboxone 8 mg-2 mg sl film 90 30 Yifan Welch) 10/14/2018 10/15/2018 suboxone 8 mg-2 mg sl film 90 30 SwiMisti NP 08/28/2018 08/28/2018 androgel 1.62%(2.5g) gel pckt 75gm 30 Misti Benavidez NP 08/05/2018 08/07/2018 suboxone 8 mg-2 mg sl film 90 30 PramodMisti NP 07/10/2018 07/11/2018 suboxone 8 mg-2 mg sl film 90 30 SwiMisti NP 06/13/2018 06/13/2018 suboxone 8 mg-2 mg sl film 90 30 Pramod Misti Call NP Patient Name: Kana Campbell Date: 1960 Address: [address] [place] [address] Sex: Male Rx Written Rx Dispensed Drug Quantity Days Supply Prescriber Name 10/04/2018 10/04/2018 buprenorphine-naloxone 8-2 mg sl tablet 12 4 Nasir Barfield 09/16/2018 09/17/2018 buprenorphine-naloxone 8-2 mg sl tablet 45 15 Nasir Barfield Exam Limitations: No Limitations - Ebola screening Have you traveled outside of the country in the last 21 days: No (N) Have you had contact with anyone from an Ebola affected area: No Have you been sick,other than usual withdrawal symptoms: No (Denies recent exposure to measles) Do you have a fever: No - Review of Systems Constitutional: Chills, Diaphoresis, Changes in sleep (Difficulty falling asleep - on Trazododne) EENT: reports: Blurred Vision, Other (Chews and swallows ok.) Respiratory: reports: SOB with Exertion (Long walks, walking up stairs) Cardiac: reports: Other (Past endocarditis - 2018 - rx'd) GI: reports: Diarrhea (watery, light brown x 1) : reports: Other (Difficulty initiating flow - states on Flomax) Musculoskeletal: reports: Back Pain (Chronic low back sharp pain x years. Curently "5". Increases w/ walking. Improves w/ standing.), Joint Pain ( Arthritis both knees (L) worse than (R)) Integumentary: reports: No Symptoms Reported Neuro: reports: Tremors Endocrine: reports: No Symptoms Reported Hematology: reports: No Symptoms Reported Psychiatric: reports: Judgement Intact, Orientated x3, Agitated, Anxious Patient History - Patient Medical History Hx Anemia: No Hx Asthma: Yes Hx Chronic Obstructive Pulmonary Disease (COPD): No Hx Cancer: No Hx Cardiac Disorders: No Hx Congestive Heart Failure: No Hx Hypertension: Yes (on med) Hx Hypercholesterolemia: No Hx Pacemaker: No HX Cerebrovascular Accident: No Hx Seizures: No Hx Dementia: No Hx Diabetes: No Hx Gastrointestinal Disorders: No Hx Liver Disease: No Hx Genitourinary Disorders: No Hx Sexually Transmitted Disorders: Yes (syphilis) Hx Renal Disease (ESRD): No Hx Thyroid Disease: No Hx Human Immunodeficiency Virus (HIV): Yes (2000 no med) Hx Hepatitis C: Yes (2001. States Hep C is cured.) Hx Depression: No Hx Suicide Attempt: No Hx Bipolar Disorder: No Hx Schizophrenia: No - Patient Surgical History Past Surgical History: No Hx Neurologic Surgery: No Hx Cataract Extraction: No Hx Cardiac Surgery: No Hx Lung Surgery: No Hx Breast Surgery: No Hx Breast Biopsy: No Hx Abdominal Surgery: No Hx Appendectomy: No Hx Cholecystectomy: No Hx Genitourinary Surgery: No Hx Section: No Hx Orthopedic Surgery: No Anesthesia Reaction: No - PPD History Previous Implant?: Yes Documented Results: Negative w/proof Implanted On Prior R Admission?: Yes Date: 03/31/18 Results: 0 mm PPD to be Administered?: No - Smoking Cessation Smoking history: Current every day smoker Have you smoked in the past 12 months: Yes Aproximately how many cigarettes per day: 3 Hx Chewing Tobacco Use: No Initiated information on smoking cessation: Yes 'Breaking Loose' booklet given: 06/06/19 - Substance & Tx. History Hx Alcohol Use: Yes Hx Substance Use: Yes Substance Use Type: Alcohol, Cocaine, Heroin, Marijuana, Opiates Hx Substance Use Treatment: Yes (detox, rehab, Current Suboxone ) - Substances abused Alcohol Substance route: Oral Frequency: Daily Amount used: 2 1/2 pints of vodka/day Age of first use: 15 Date of last use: 06/06/19 Heroin Substance route: Injection Frequency: 3-6 times per week Amount used: 5bags/day Age of first use: 41 Date of last use: 06/05/19 Crack Substance route: Smoking Frequency: 3-6 times per week Amount used: $150 Age of first use: 49 Date of last use: 06/05/19 Family Disease History - Family Disease History Family Disease History: CA: Father (), Respiratory: Mother, Other: Son ( KILLED) Admission Physical Exam [facility] - Vital Signs Vital Signs: Vital Signs - 24 hr 06/06/19 06/06/19 20:31 22:03 Temperature 97.1 F L 97.1 F L Pulse Rate 57 L 57 L Respiratory 18 18 Rate Blood Pressure 141/82 141/82 - Physical General Appearance: Yes: Mild Distress, Tremorous, Irritable, Sweating ( Increased facial moisture), Anxious HEENTM: Yes: EOMI, Hearing grossly Normal, Normocephalic, Normal Voice, JOHANNA ( Pupils = 2 mm), Pharynx Normal, Nasal Congestion Respiratory: Yes: Lungs Clear, Normal Breath Sounds, No Respiratory Distress Neck: Yes: Supple, Trachea in good position, Mass (4 cm soft, mobile, non- tender mass below (L) ear and on neck.) Breast: Yes: Breast Exam Deferred Cardiology: Yes: Regular Rhythm, S1, S2, Bradycardia (HR: 52) Abdominal: Yes: Non Tender, Flat, Soft, Increased Bowel Sounds Genitourinary: Yes: Hesitency Back: Yes: Within Normal Limits Musculoskeletal: Yes: full range of Motion, Gait Steady Extremities: Yes: Normal Capillary Refill, Normal Range of Motion, Tremors Neurological: Yes: offline editor II-XII NML intact, Fully Oriented, Alert, Normal Response Integumentary: Yes: Normal Color, Dry (Except for increased facial moisture), Warm, Track Campos (Old and new track campos on arms. No increased warmth or induration) Lymphatic: Yes: Within Normal Limits - Diagnostic (1) History of asthma Current Visit: Yes Status: Chronic (2) Mass in neck Current Visit: Yes Status: Acute Comment: States mass x 3 weeks (3) Bradycardia Current Visit: Yes Status: Chronic (4) Alcohol dependence with withdrawal Current Visit: Yes Status: Acute Qualifiers: Complication of substance-induced condition: uncomplicated Qualified Code(s ): F10.230 - Alcohol dependence with withdrawal, uncomplicated (5) Benign prostatic hyperplasia (BPH) with straining on urination Current Visit: Yes Status: Chronic (6) Cocaine dependence Current Visit: Yes Status: Chronic Qualifiers: Substance use status: uncomplicated Qualified Code(s): F14.20 - Cocaine dependence, uncomplicated (7) Encounter for monitoring Suboxone maintenance therapy Current Visit: Yes Status: Chronic Comment: With continued heroin abuse (8) HIV (human immunodeficiency virus infection) Current Visit: Yes Status: Chronic Qualifiers: HIV symptom status: unspecified Qualified Code(s): B20 - Human immunodeficiency virus [HIV] disease (9) Hypertension Current Visit: Yes Status: Chronic Qualifiers: Hypertension type: unspecified Qualified Code(s): I10 - Essential (primary ) hypertension (10) Marijuana dependence Current Visit: Yes Status: Chronic (11) Nicotine dependence Current Visit: Yes Status: Chronic Qualifiers: Nicotine product type: cigarettes Substance use status: uncomplicated Qualified Code(s): F17.210 - Nicotine dependence, cigarettes, uncomplicated Cleared for Admission [facility] - Detox or Rehab [facility] Level of Care: Medically Managed Detox Regimen/Protocol: Librium Claeared for Rehab Admission: No Breathalyzer - Breathalyzer Breathalyzer: 0 Urine Drug Screen - Test Device Lot number: [id number] Expiration date: 03/25/21 - Control Is test valid?: Yes - Results Drug screen NEGATIVE: Yes Urine drug screen results: THC-Marijuana, TEENA-Cocaine, MOP-Opiates, OXY- Oxycodone, BUP-Suboxone Inpatient Rehab Admission - Rehab Decision to Admit Inpatient rehab admission?: No
[2019-06-06] MEDS ORDERED: NICOTINE POLACRILEX 2 MG GUM BUC PRN (23:19)
[2019-06-06] MEDS ORDERED: MAGNESIUM CITRATE 300 ML BOTTLE PO PRN (23:19)
[2019-06-06] MEDS ORDERED: MELATONIN 5 MG TABLETS PO PRN (23:19)
[2019-06-06] MEDS ORDERED: MAGNESIUM HYDROX 2400MG/30ML ORAL SUSPENSION 30 ML CUP PO PRN (23:19)
[2019-06-06] MEDS ORDERED: MENTHOL/PHENOL 1 EACH UD MM PRN (23:19)
[2019-06-06] MEDS ORDERED: MAG HYDROX/AL HYDROX/SIMETH 30 ML UNIT-DOSE CUP PO PRN (23:19)
[2019-06-06] MEDS ORDERED: ACETAMINOPHEN 325 MG TABLET (FP) PO PRN ×2 (23:19)
[2019-06-07] MEDS ORDERED: chlordiazePOXIDE HCL 25 MG CAPSULE PO PRN (00:55)
[2019-06-07] MEDS: chlordiazePOXIDE HCL 25 MG CAPSULE PO SCH ×4 (05:48→22:26)
[2019-06-07] MEDS: BUPRENORPHINE/NALOXONE 8 MG/2 MG FILM PACKET SL SCH ×3 (05:49→22:26)
--- NOTE | 2019-06-07 09:31 | EKG ---
Test Reason : Blood Pressure : / mmHG Vent. Rate : 050 BPM Atrial Rate : 050 BPM P-R Int : 140 ms QRS Dur : 098 ms QT Int : 458 ms P-R-T Axes : 011 003 036 degrees QTc Int : 417 ms SINUS BRADYCARDIA OTHERWISE NORMAL ECG WHEN COMPARED WITH ECG OF 08-JAN-2019 11:15, NO SIGNIFICANT CHANGE WAS FOUND Confirmed by MARY QUIJANO MD ([id number]) on 06/07/2019 9:31:47 AM Referred By: CONSTANTINE DE DIOS Confirmed By:MARY QUIJANO MD
[2019-06-07] MEDS: amLODIPine BESYLATE 5 MG TABLET (FP) PO SCH (10:23)
[2019-06-07] MEDS: TAMSULOSIN HCL 0.4 MG CAP PO SCH (10:23)
[2019-06-07] MEDS: PRENATAL VITAMINS W/ FOLIC ACID TABLET (FP) PO SCH (10:23)
[2019-06-07 10:37] LABS: HEMATOCRIT 33.8 % (35.4-49); HEMOGLOBIN 11.3 GM/dL (11.7-16.9); MCH 28.9 pg (25.7-33.7); MCHC 33.5 g/dl (32.0-35.9); MEAN CELL VOLUME 86.3 fl (80-96); MEAN PLT VOLUME 7.9 fl (7.5-11.1); RBC 3.92 M/mm3 (4.00-5.60); RDW 13.8 % (11.9-15.9); WHITE BLOOD COUNT 2.8 K/mm3 (4.0-10.0)
[2019-06-07 10:43] LABS: ALBUMIN 2.5 g/dl (3.4-5.0); BILIRUBIN,TOTAL 0.2 mg/dL (0.2-1); BLOOD UREA NITROGEN 12.9 mg/dL (7-18); CALCIUM 8.2 mg/dL (8.5-10.1); CREATININE 0.9 mg/dL (0.55-1.3); POTASSIUM 3.5 mmol/L (3.5-5.1); TOT PROT 7.9 g/dl (6.4-8.2)
[2019-06-07 10:56] LABS: PLATELET COUNT 236 K/MM3 (134-434)
--- NOTE | 2019-06-07 13:05 | PN ---
[facility] CIWA - CIWA Score Nausea/Vomitin-No Nausea/No Vomiting Muscle Tremors: 3 Anxiety: 3 Agitation: 2 Paroxysmal Sweats: No Perspiration Orientation: 0-Oriented Tacttile Disturbances: 2-Mild Itch/Numbness/Burn Auditory Disturbances: 1-Very Mild Visual Disturbances: 0-None Headache: 0-None Present CIWA-Ar Total Score: 11 S COWS - Scale Resting Pulse: 0= CO 80 or Below Sweatin= Chills/Flushing Restless Observation: 1= Difficult to Sit Still Pupil Size: 0= Normal to Room Light Bone or Joint Aches: 0= None Runny Nose/ Eye Tearin= None GI Upset > 30mins: 0= None Tremor Observation of Outstretched Hands: 2= Slight Tremor Visible Yawning Observation: 1= 1-2x During Session Anxiety or Irritability: 2=Irritable/Anxious Goose Flesh Skin: 3=Piloerection COWS Score: 10 S Progress Note (SOAP) Subjective: Tremors, Anxious, Interrupted Sleep. Objective: PATIENT A & O X 3, OBSERVED AMBULATING ON UNIT UNASSISTED. IN NO ACUTE DISTRESS. 06/07/19 13:08 Vital Signs Temperature 97.4 F L 06/07/19 09:17 Pulse Rate 60 06/07/19 09:17 Respiratory Rate 18 06/07/19 09:17 Blood Pressure 104/68 06/07/19 09:17 O2 Sat by Pulse Oximetry (%) Laboratory Tests 06/07/19 06/07/19 06/07/19 07:50 07:50 07:50 WBC 2.8 L RBC 3.92 L Hgb 11.3 L Hct 33.8 L D MCV 86.3 MCH 28.9 MCHC 33.5 RDW 13.8 Plt Count 236 MPV 7.9 Sodium 139 Potassium 3.5 Chloride 105 Carbon Dioxide 30 Anion Gap 4 L BUN 12.9 Creatinine 0.9 Est GFR (CKD-EPI)AfAm 108.73 Est GFR (CKD-EPI)NonAf 93.82 Random Glucose 123 H Calcium 8.2 L Total Bilirubin 0.2 AST 25 ALT 18 Alkaline Phosphatase 52 Total Protein 7.9 Albumin 2.5 L RPR Titer Nonreactive LABS NOTED. PATIENT HAS HAD LOW WBC LEVELS AND HAS BEEN ANEMIC ON PREVIOUS ADMISSIONS. 06/07/19 13:10 Assessment: 06/07/19 13:09 WITHDRAWAL SYMPTOMS. ANEMIA. LEUKOPENIA. 06/07/19 13:09 Plan: CONTINUE DETOX. PATIENT REPORTS HISTORY OF BIKTARVY PRESCRIBED ON OUTPATIENT BASIS FOR TREATMENT OF H.I.V. PATIENT DID NOT BRING MEDICATION WITH HIM AT TIME OF ADMISSION TO DETOX. HOWEVER, HE REPORTS THAT HE HAS BEEN TAKING MEDICATION DAILY AND CONSISTENTLY AND DAILY AND THAT HE LAST TOOK IT YESTERDAY PRIOR TO ADMISSION TO DETOX. [place] WAITRESS/WAITER UNABLE TO REACH PHARMACY ([facility], [place], [place]), 2 ATTEMPTS. HOWEVER, [facility] REVE[facility] THAT PATIENT LAST FILLED PRESCRIPTION FOR THIS MEDICATION ON 05/27/2019 AND THAT HE HAS FILLED IT MONTHLY AND REGULARLY FOR THE LAST FEW MONTHS PRIOR TO THAT. WILL ORDER MEDICATION FOR THIS DETOX ADMISSION.
[2019-06-07] MEDS ORDERED: ALBUTEROL SO4 8 GM HFA INHALER IH PRN (13:15)
[2019-06-07] MEDS: BICTEGRAV/EMTRICIT/TENOFOV (BIKTARVY) 50-200-25 MG TABLET PO SCH (13:55)
[2019-06-07] MEDS: traZODone HCL 50 MG TABLET (FP) PO SCH (22:26)
[2019-06-07] MEDS: THIAMINE HCL 100 MG TABLET (FP) PO SCH (22:26)
[2019-06-08] MEDS: BUPRENORPHINE/NALOXONE 8 MG/2 MG FILM PACKET SL SCH ×3 (05:52→22:11)
[2019-06-08] MEDS: chlordiazePOXIDE HCL 25 MG CAPSULE PO SCH ×4 (05:52→22:11)
[2019-06-08] MEDS: PRENATAL VITAMINS W/ FOLIC ACID TABLET (FP) PO SCH (10:11)
[2019-06-08] MEDS: amLODIPine BESYLATE 5 MG TABLET (FP) PO SCH (10:11)
[2019-06-08] MEDS: TAMSULOSIN HCL 0.4 MG CAP PO SCH (10:11)
[2019-06-08] MEDS: BICTEGRAV/EMTRICIT/TENOFOV (BIKTARVY) 50-200-25 MG TABLET PO SCH (10:11)
--- NOTE | 2019-06-08 12:57 | PN ---
S CIWA - CIWA Score Nausea/Vomitin-Mild Nausea/No Vomiting Muscle Tremors: 2 Anxiety: 2 Agitation: 2 Paroxysmal Sweats: 1-Minimal Palms Moist Orientation: 0-Oriented Tacttile Disturbances: 0-None Auditory Disturbances: 0-None Visual Disturbances: 0-None Headache: 0-None Present CIWA-Ar Total Score: 8 [facility] Progress Note (SOAP) Subjective: 59 years old male admitted on 06/06/19 for alcohol withdrawal sx medical history of bpyh hiv hypertension hepatitis c copd in suboxon maintenance program 8-2 mg po tid Objective: 06/08/19 12:57 Vital Signs Temperature 96.1 F L 06/08/19 09:27 Pulse Rate 63 06/08/19 09:27 Respiratory Rate 16 06/08/19 09:27 Blood Pressure 102/64 06/08/19 09:27 O2 Sat by Pulse Oximetry (%) Laboratory Last Values WBC 2.8 K/mm3 (4.0-10.0) L 06/07/19 07:50 RBC 3.92 M/mm3 (4.00-5.60) L 06/07/19 07:50 Hgb 11.3 GM/dL (11.7-16.9) L 06/07/19 07:50 Hct 33.8 % (35.4-49) L D 06/07/19 07:50 MCV 86.3 fl (80-96) 06/07/19 07:50 MCH 28.9 pg (25.7-33.7) 06/07/19 07:50 MCHC 33.5 g/dl (32.0-35.9) 06/07/19 07:50 RDW 13.8 % (11.9-15.9) 06/07/19 07:50 Plt Count 236 K/MM3 (134-434) 06/07/19 07:50 MPV 7.9 fl (7.5-11.1) 06/07/19 07:50 Sodium 139 mmol/L (136-145) 06/07/19 07:50 Potassium 3.5 mmol/L (3.5-5.1) 06/07/19 07:50 Chloride 105 mmol/L (98-107) 06/07/19 07:50 Carbon Dioxide 30 mmol/L (21-32) 06/07/19 07:50 Anion Gap 4 MMOL/L (8-16) L 06/07/19 07:50 BUN 12.9 mg/dL (7-18) 06/07/19 07:50 Creatinine 0.9 mg/dL (0.55-1.3) 06/07/19 07:50 Est GFR (CKD-EPI)AfAm 108.73 06/07/19 07:50 Est GFR (CKD-EPI)NonAf 93.82 06/07/19 07:50 Random Glucose 123 mg/dL (74-106) H 06/07/19 07:50 Calcium 8.2 mg/dL (8.5-10.1) L 06/07/19 07:50 Total Bilirubin 0.2 mg/dL (0.2-1) 06/07/19 07:50 AST 25 U/L (15-37) 06/07/19 07:50 ALT 18 U/L (13-61) 06/07/19 07:50 Alkaline Phosphatase 52 U/L (45-117) 06/07/19 07:50 Total Protein 7.9 g/dl (6.4-8.2) 06/07/19 07:50 Albumin 2.5 g/dl (3.4-5.0) L 06/07/19 07:50 RPR Titer Nonreactive (NONREACTIVE) 06/07/19 07:50 lab noted Assessment: 06/08/19 12:57 alcohol withdrawal sx Plan: continue alcohol detox
[2019-06-08] MEDS: traZODone HCL 50 MG TABLET (FP) PO SCH (22:11)
[2019-06-08] MEDS: THIAMINE HCL 100 MG TABLET (FP) PO SCH (22:11)
[2019-06-09] MEDS ORDERED: chlordiazePOXIDE HCL 10 MG CAPSULE PO PRN
[2019-06-09] MEDS: BUPRENORPHINE/NALOXONE 8 MG/2 MG FILM PACKET SL SCH ×3 (05:26→22:13)
[2019-06-09] MEDS: chlordiazePOXIDE HCL 10 MG CAPSULE PO SCH ×4 (06:04→22:13)
[2019-06-09] MEDS: BICTEGRAV/EMTRICIT/TENOFOV (BIKTARVY) 50-200-25 MG TABLET PO SCH (10:09)
[2019-06-09] MEDS: TAMSULOSIN HCL 0.4 MG CAP PO SCH (10:09)
[2019-06-09] MEDS: PRENATAL VITAMINS W/ FOLIC ACID TABLET (FP) PO SCH (10:09)
[2019-06-09] MEDS: amLODIPine BESYLATE 5 MG TABLET (FP) PO SCH (10:09)
--- NOTE | 2019-06-09 11:26 | PN ---
S CIWA - CIWA Score Nausea/Vomitin-No Nausea/No Vomiting Muscle Tremors: 2 Anxiety: 2 Agitation: 2 Paroxysmal Sweats: No Perspiration Orientation: 0-Oriented Tacttile Disturbances: 0-None Auditory Disturbances: 0-None Visual Disturbances: 0-None Headache: 0-None Present CIWA-Ar Total Score: 6 [facility] Progress Note (SOAP) Subjective: left lower jaw skin color lipoma x "years" prefers to remove the lipoma denies trouble chewing food nor swallowing fluid speech clearly jaws full range of motion Objective: 06/09/19 11:30 Vital Signs Temperature 97.0 F L 06/09/19 09:13 Pulse Rate 63 06/09/19 09:13 Respiratory Rate 18 06/09/19 09:13 Blood Pressure 143/87 06/09/19 09:13 O2 Sat by Pulse Oximetry (%) Laboratory Last Values WBC 2.8 K/mm3 (4.0-10.0) L 06/07/19 07:50 RBC 3.92 M/mm3 (4.00-5.60) L 06/07/19 07:50 Hgb 11.3 GM/dL (11.7-16.9) L 06/07/19 07:50 Hct 33.8 % (35.4-49) L D 06/07/19 07:50 MCV 86.3 fl (80-96) 06/07/19 07:50 MCH 28.9 pg (25.7-33.7) 06/07/19 07:50 MCHC 33.5 g/dl (32.0-35.9) 06/07/19 07:50 RDW 13.8 % (11.9-15.9) 06/07/19 07:50 Plt Count 236 K/MM3 (134-434) 06/07/19 07:50 MPV 7.9 fl (7.5-11.1) 06/07/19 07:50 Sodium 139 mmol/L (136-145) 06/07/19 07:50 Potassium 3.5 mmol/L (3.5-5.1) 06/07/19 07:50 Chloride 105 mmol/L (98-107) 06/07/19 07:50 Carbon Dioxide 30 mmol/L (21-32) 06/07/19 07:50 Anion Gap 4 MMOL/L (8-16) L 06/07/19 07:50 BUN 12.9 mg/dL (7-18) 06/07/19 07:50 Creatinine 0.9 mg/dL (0.55-1.3) 06/07/19 07:50 Est GFR (CKD-EPI)AfAm 108.73 06/07/19 07:50 Est GFR (CKD-EPI)NonAf 93.82 06/07/19 07:50 Random Glucose 123 mg/dL (74-106) H 06/07/19 07:50 Calcium 8.2 mg/dL (8.5-10.1) L 06/07/19 07:50 Total Bilirubin 0.2 mg/dL (0.2-1) 06/07/19 07:50 AST 25 U/L (15-37) 06/07/19 07:50 ALT 18 U/L (13-61) 06/07/19 07:50 Alkaline Phosphatase 52 U/L (45-117) 06/07/19 07:50 Total Protein 7.9 g/dl (6.4-8.2) 06/07/19 07:50 Albumin 2.5 g/dl (3.4-5.0) L 06/07/19 07:50 RPR Titer Nonreactive (NONREACTIVE) 06/07/19 07:50 lab noted low wbc follow up with infectious disease specialist Assessment: 06/09/19 11:31 alcohol withdrawal sx Plan: continue alcohol detox
[2019-06-09] MEDS: traZODone HCL 50 MG TABLET (FP) PO SCH (22:13)
[2019-06-09] MEDS: THIAMINE HCL 100 MG TABLET (FP) PO SCH (22:13)
[2019-06-10] MEDS: chlordiazePOXIDE HCL 10 MG CAPSULE PO SCH ×2 (06:13→17:35)
[2019-06-10] MEDS: BUPRENORPHINE/NALOXONE 8 MG/2 MG FILM PACKET SL SCH ×3 (06:13→22:27)
[2019-06-10] MEDS: PRENATAL VITAMINS W/ FOLIC ACID TABLET (FP) PO SCH (10:15)
[2019-06-10] MEDS: TAMSULOSIN HCL 0.4 MG CAP PO SCH (10:15)
[2019-06-10] MEDS: amLODIPine BESYLATE 5 MG TABLET (FP) PO SCH (10:15)
[2019-06-10] MEDS: BICTEGRAV/EMTRICIT/TENOFOV (BIKTARVY) 50-200-25 MG TABLET PO SCH (10:17)
--- NOTE | 2019-06-10 15:39 | PN ---
S CIWA - CIWA Score Nausea/Vomitin-No Nausea/No Vomiting Muscle Tremors: 1-None Visible, but [place] Anxiety: 1-Mildly Anxious Agitation: 1-Slight > Activity Paroxysmal Sweats: No Perspiration Orientation: 0-Oriented Tacttile Disturbances: 0-None Auditory Disturbances: 0-None Visual Disturbances: 0-None Headache: 0-None Present CIWA-Ar Total Score: 3 [facility] Progress Note (SOAP) Subjective: 51 years old male is doing well with librium detox regimen feeling better today discuss aftercare with staff that he dose not want to go to [facility] but out patient intensive care facility discuss addiction and purpose of transition from detox to rehab Objective: 06/10/19 15:41 Vital Signs Temperature 97.2 F L 06/10/19 13:27 Pulse Rate 71 06/10/19 13:27 Respiratory Rate 18 06/10/19 13:27 Blood Pressure 142/86 06/10/19 13:27 O2 Sat by Pulse Oximetry (%) Laboratory Last Values WBC 2.8 K/mm3 (4.0-10.0) L 06/07/19 07:50 RBC 3.92 M/mm3 (4.00-5.60) L 06/07/19 07:50 Hgb 11.3 GM/dL (11.7-16.9) L 06/07/19 07:50 Hct 33.8 % (35.4-49) L D 06/07/19 07:50 MCV 86.3 fl (80-96) 06/07/19 07:50 MCH 28.9 pg (25.7-33.7) 06/07/19 07:50 MCHC 33.5 g/dl (32.0-35.9) 06/07/19 07:50 RDW 13.8 % (11.9-15.9) 06/07/19 07:50 Plt Count 236 K/MM3 (134-434) 06/07/19 07:50 MPV 7.9 fl (7.5-11.1) 06/07/19 07:50 Sodium 139 mmol/L (136-145) 06/07/19 07:50 Potassium 3.5 mmol/L (3.5-5.1) 06/07/19 07:50 Chloride 105 mmol/L (98-107) 06/07/19 07:50 Carbon Dioxide 30 mmol/L (21-32) 06/07/19 07:50 Anion Gap 4 MMOL/L (8-16) L 06/07/19 07:50 BUN 12.9 mg/dL (7-18) 06/07/19 07:50 Creatinine 0.9 mg/dL (0.55-1.3) 06/07/19 07:50 Est GFR (CKD-EPI)AfAm 108.73 06/07/19 07:50 Est GFR (CKD-EPI)NonAf 93.82 06/07/19 07:50 Random Glucose 123 mg/dL (74-106) H 06/07/19 07:50 Calcium 8.2 mg/dL (8.5-10.1) L 06/07/19 07:50 Total Bilirubin 0.2 mg/dL (0.2-1) 06/07/19 07:50 AST 25 U/L (15-37) 06/07/19 07:50 ALT 18 U/L (13-61) 06/07/19 07:50 Alkaline Phosphatase 52 U/L (45-117) 06/07/19 07:50 Total Protein 7.9 g/dl (6.4-8.2) 06/07/19 07:50 Albumin 2.5 g/dl (3.4-5.0) L 06/07/19 07:50 RPR Titer Nonreactive (NONREACTIVE) 06/07/19 07:50 lab noted patient agrees to follow up low wbc with his primary care provider that he has long history of low wbc with unknown origin 06/10/19 15:42 06/10/19 15:43 Assessment: 06/10/19 15:43 Vital Signs alcohol withdrawal sx Plan: continue alcohol detox
[2019-06-10] MEDS: THIAMINE HCL 100 MG TABLET (FP) PO SCH (22:27)
[2019-06-10] MEDS: traZODone HCL 50 MG TABLET (FP) PO SCH (22:27)
[2019-06-11] MEDS ORDERED: chlordiazePOXIDE HCL 10 MG CAPSULE PO ONE (05:00)
[2019-06-11 06:43] VITALS: BP 109/69; PULSE 54; TEMP 98.2
[2019-06-11] MEDS: BUPRENORPHINE/NALOXONE 8 MG/2 MG FILM PACKET SL SCH (06:43)
[2019-06-11] MEDS: TAMSULOSIN HCL 0.4 MG CAP PO SCH (09:05)
[2019-06-11] MEDS: PRENATAL VITAMINS W/ FOLIC ACID TABLET (FP) PO SCH (09:05)
[2019-06-11] MEDS: amLODIPine BESYLATE 5 MG TABLET (FP) PO SCH (09:06)
[2019-06-11] MEDS: BICTEGRAV/EMTRICIT/TENOFOV (BIKTARVY) 50-200-25 MG TABLET PO SCH (09:06)
--- NOTE | 2019-06-11 12:21 | DS ---
[facility] Detox Discharge Summary Admission Date: 06/06/19 Discharge Date: 06/11/19 - History Present History: Alcohol Dependence Additional Comments: 59 years old male admittd on 06/06/19 for alcohol withdrawal sx no complication throughout the detox stay, patient is alert oriented x 3 cardiac S1S2 pulmonary lung clear bilaterally abdomen soft none tenderness upon discharge Pertinent Past History: hypertension hepatitis c hiv patient will return to infectious disease specialist for low wbc follow up - Physical Exam Results Vital Signs: Vital Signs Temperature 98.2 F 06/11/19 06:43 Pulse Rate 54 L 06/11/19 06:43 Respiratory Rate 18 06/11/19 06:43 Blood Pressure 109/69 06/11/19 06:43 O2 Sat by Pulse Oximetry (%) Pertinent Admission Physical Exam Findings: alcohol withdrawal sx Laboratory Last Values WBC 2.8 K/mm3 (4.0-10.0) L 06/07/19 07:50 RBC 3.92 M/mm3 (4.00-5.60) L 06/07/19 07:50 Hgb 11.3 GM/dL (11.7-16.9) L 06/07/19 07:50 Hct 33.8 % (35.4-49) L D 06/07/19 07:50 MCV 86.3 fl (80-96) 06/07/19 07:50 MCH 28.9 pg (25.7-33.7) 06/07/19 07:50 MCHC 33.5 g/dl (32.0-35.9) 06/07/19 07:50 RDW 13.8 % (11.9-15.9) 06/07/19 07:50 Plt Count 236 K/MM3 (134-434) 06/07/19 07:50 MPV 7.9 fl (7.5-11.1) 06/07/19 07:50 Sodium 139 mmol/L (136-145) 06/07/19 07:50 Potassium 3.5 mmol/L (3.5-5.1) 06/07/19 07:50 Chloride 105 mmol/L (98-107) 06/07/19 07:50 Carbon Dioxide 30 mmol/L (21-32) 06/07/19 07:50 Anion Gap 4 MMOL/L (8-16) L 06/07/19 07:50 BUN 12.9 mg/dL (7-18) 06/07/19 07:50 Creatinine 0.9 mg/dL (0.55-1.3) 06/07/19 07:50 Est GFR (CKD-EPI)AfAm 108.73 06/07/19 07:50 Est GFR (CKD-EPI)NonAf 93.82 06/07/19 07:50 Random Glucose 123 mg/dL (74-106) H 06/07/19 07:50 Calcium 8.2 mg/dL (8.5-10.1) L 06/07/19 07:50 Total Bilirubin 0.2 mg/dL (0.2-1) 06/07/19 07:50 AST 25 U/L (15-37) 06/07/19 07:50 ALT 18 U/L (13-61) 06/07/19 07:50 Alkaline Phosphatase 52 U/L (45-117) 06/07/19 07:50 Total Protein 7.9 g/dl (6.4-8.2) 06/07/19 07:50 Albumin 2.5 g/dl (3.4-5.0) L 06/07/19 07:50 RPR Titer Nonreactive (NONREACTIVE) 06/07/19 07:50 lab noted patient will bringing in lab report and medication list to aftercare appointment - Treatment Hospital Course: Detox Protocol Followed, Detoxed Safely, Responded well, Discharged Condition Good, Rehab Referral Accepted Patient has Accepted a [facility] Referral [facility] - Medication Discharge Medications: Ambulatory Orders Bictegrav/Emtricit/Tenofov Ala [Biktarvy 50-200-25 mg Tablet] 1 each PO DAILY Buprenorphine/Naloxone [Suboxone 8Mg/2Mg Sl Film -] 1 each SL TID 01/06/19 traZODone HCL [Trazodone HCl] 50 mg PO HS 06/06/19 Albuterol Sulfate Inhaler - [Ventolin HFA Inhaler -] 2 inh PO Q4H PRN #1 inhaler 06/10/19 Amlodipine Besylate [Norvasc -] 5 mg PO DAILY #30 tablet 06/10/19 Tamsulosin HCl [Flomax -] 0.4 mg PO DAILY #30 cap.er.24h 06/10/19 - Diagnosis (1) Alcohol dependence with uncomplicated withdrawal Status: Acute (2) Weight loss Status: Acute (3) Asthma Status: Chronic Qualifiers: Asthma severity: mild Asthma persistence: intermittent Asthma complication type: with status asthmaticus Qualified Code(s): J45.22 - Mild intermittent asthma with status asthmaticus (4) Benign prostatic hyperplasia (BPH) with straining on urination Status: Chronic (5) COPD (chronic obstructive pulmonary disease) Status: Chronic Qualifiers: COPD type: emphysema Emphysema type: unspecified Qualified Code(s): J43.9 - Emphysema, unspecified (6) Encounter for monitoring Suboxone maintenance therapy Status: Chronic (7) HIV (human immunodeficiency virus infection) Status: Chronic Qualifiers: HIV symptom status: unspecified Qualified Code(s): B20 - Human immunodeficiency virus [HIV] disease (8) Hypertension Status: Chronic Qualifiers: Hypertension type: unspecified Qualified Code(s): I10 - Essential (primary ) hypertension (9) Nicotine dependence Status: Acute Qualifiers: Nicotine product type: cigarettes Substance use status: in withdrawal Qualified Code(s): F17.213 - Nicotine dependence, cigarettes, with withdrawal (10) Hepatitis C Status: Resolved Qualifiers: Viral hepatitis chronicity: carrier Qualified Code(s): B18.2 - Chronic viral hepatitis C - AMA Did Patient Leave Against Medical Advice: No
== END 2019-06-11 09:18 | disposition home or self-care (01) | DRG 773 ==
LOC: YASAS 15:25 → Y3N 23:18
PROVIDERS: ADMIT Surgery; ATTEND Surgery
PROC: HZ2ZZZZ Detoxification Services for Substance Abuse Treatment (ICD-10-PCS; principal; 2019-06-06)
DX: F10.230 Alcohol dependence with withdrawal, uncomplicated (principal); F11.20 Opioid dependence, uncomplicated; F12.20 Cannabis dependence, uncomplicated; F17.210 Nicotine dependence, cigarettes, uncomplicated; I10 Essential (primary) hypertension; Z21 Asymptomatic human immunodeficiency virus [HIV] infection status; R63.4 Abnormal weight loss; N40.0 Benign prostatic hyperplasia without lower urinary tract symptoms; J43.9 Emphysema, unspecified; B18.2 Chronic viral hepatitis C; D64.9 Anemia, unspecified; D72.819 Decreased white blood cell count, unspecified; R00.1 Bradycardia, unspecified; R22.1 Localized swelling, mass and lump, neck; Z87.438 Personal history of other diseases of male genital organs; Z88.8 Allergy status to other drugs, medicaments and biological substances; Z91.013 Allergy to seafood
CPT/HCPCS: 36415; 80053; 85027; 86593; 93005; 93010

== ENCOUNTER 2019-08-11 14:00 | Inpatient (IN) | payer OTHER ==
[2019-08-11 16:57] VITALS: BMI 22.4
--- NOTE | 2019-08-11 17:21 | HP ---
COWS - Scale Resting Pulse: 0= VA 80 or Below Sweatin= Chills/Flushing Restless Observation: 0= Sits Still Pupil Size: 0= Normal to Room Light Bone or Joint Aches: 1= Mild Discomfort Runny Nose/ Eye Tearin= Runny Nose/Eyes GI Upset > 30mins: 1= Stomach Cramp Tremor Observation: 0= None Yawning Observation: 1= 1-2x During Session Anxiety or Irritability: 2=Irritable/Anxious Goose Flesh Skin: 0=Smooth Skin COWS Score: 8 CIWA Score Nausea/Vomitin Muscle Tremors: 2 Anxiety: 2 Agitation: 2 Paroxysmal Sweats: 2 Orientation: 0-Oriented Tacttile Disturbances: 0-None Auditory Disturbances: 2-Mild Harshness/Frighten Visual Disturbances: 2-Mild Sensitivity Headache: 2-Mild CIWA-Ar Total Score: 16 - Admission Criteria OASAS Guidelines: Admission for Medically Managed Detox: Requires at least one of the followin. CIWA greater than 12 2. Seizures within the past 24 hours 3. Delirium tremens within the past 24 hours 4. Hallucinations within the past 24 hours 5. Acute intervention needed for co occurring medical disorder 6. Acute intervention needed for co occurring psychiatric disorder 7. Severe withdrawal that cannot be handled at a lower level of care (continued vomiting, continued diarrhea, abnormal vital signs) requiring intravenous medication and/or fluids 8. Admission ROS [facility] Chief Complaint: WITHDRAWAL SYMPTOMS Allergies/Adverse Reactions: Allergies Allergy/AdvReac Type Severity Reaction Status Date / Time heparin Allergy Severe Rash Verified 08/11/19 16:51 ibuprofen Allergy Severe Rash Verified 08/11/19 16:51 prochlorperazine Allergy Severe Rash Verified 08/11/19 16:51 [From Compazine] prochlorperazine edisylate Allergy Severe Rash Verified 08/11/19 16:51 [From Compazine] prochlorperazine maleate Allergy Severe Rash Verified 08/11/19 16:51 [From Compazine] SEAFOOD Allergy Severe Rash Uncoded 08/11/19 16:51 History of Present Illness: 59 Y.O. MAN WITH AN EXTENSIVE HISTORY OF ALCOHOL AND HEROIN DEPENDENCE. HE LAST COMPLETED DETOX HERE FROM 06/06/19-06/11/2019. DOES NOT HAVE A SIGNIFICANT PERIOD OF ILLICIT DRUG ABSTINENCE OR SOBRIETY. HE IS CURRENTLY PRESCRIBED SUBOXONE AND LAST RECEIVED 90 FILMS OF THE 8/2MG ON 08/06/2019. Exam Limitations: No Limitations - Ebola screening Have you traveled outside of the country in the last 21 days: No Have you had contact with anyone from an Ebola affected area: No - Review of Systems Constitutional: Chills, Loss of Appetite, Changes in sleep, Weakness, Unintentional Wgt. Loss EENT: reports: Tearing, Nose Congestion Respiratory: reports: Shortness of Breath Cardiac: reports: No Symptoms Reported GI: reports: No Symptoms Reported : reports: Frequency Musculoskeletal: reports: Back Pain Integumentary: reports: Lumps (Swollen left submadibular lymph node) Neuro: reports: Headache, Tremors, Other (Alcohol induced syncope-last was one 1 month ago) Endocrine: reports: No Symptoms Reported Hematology: reports: Lymph Node Abnormalities (Enlarged lympy node) Psychiatric: reports: Orientated x3 Other Systems: Reviewed and Negative Patient History - Patient Medical History Hx Anemia: No Hx Asthma: Yes Hx Chronic Obstructive Pulmonary Disease (COPD): No Hx Cancer: No Hx Cardiac Disorders: No Hx Congestive Heart Failure: No Hx Hypertension: Yes (on med) Hx Hypercholesterolemia: No Hx Pacemaker: No HX Cerebrovascular Accident: No Hx Seizures: No Hx Dementia: No Hx Diabetes: No Hx Gastrointestinal Disorders: No Hx Liver Disease: No Hx Genitourinary Disorders: No Hx Sexually Transmitted Disorders: Yes (syphilis) Hx Renal Disease (ESRD): No Hx Thyroid Disease: No Hx Human Immunodeficiency Virus (HIV): Yes (2000 no med) Hx Hepatitis C: Yes (2001. States Hep C is cured.) Hx Depression: No Hx Suicide Attempt: No Hx Bipolar Disorder: No Hx Schizophrenia: No - Patient Surgical History Past Surgical History: No Hx Neurologic Surgery: No Hx Cataract Extraction: No Hx Cardiac Surgery: No Hx Lung Surgery: No Hx Breast Surgery: No Hx Breast Biopsy: No Hx Abdominal Surgery: No Hx Appendectomy: No Hx Cholecystectomy: No Hx Genitourinary Surgery: No Hx Section: No Hx Orthopedic Surgery: No Anesthesia Reaction: No - PPD History Previous Implant?: Yes Documented Results: Negative w/proof Implanted On Prior R Admission?: Yes Date: 03/31/18 Results: 0 mm PPD to be Administered?: Yes - Reproductive History Patient is a Female of Child Bearing Age (11 -55 yrs old): No - Smoking Cessation Smoking history: Current every day smoker Have you smoked in the past 12 months: Yes Aproximately how many cigarettes per day: 3 Hx Chewing Tobacco Use: No Initiated information on smoking cessation: Yes 'Breaking Loose' booklet given: 08/11/19 - Substance & Tx. History Hx Alcohol Use: Yes Hx Substance Use: Yes Substance Use Type: Alcohol, Cocaine, Heroin Hx Substance Use Treatment: Yes (Detox: 05/2019. Receiving Suboxone from PCP ) - Substances abused Alcohol Substance route: Oral Frequency: Daily Amount used: 2 1/2 pints of vodka/day Age of first use: 15 Date of last use: 08/10/19 Heroin Substance route: Injection Frequency: 3-6 times per week Amount used: 10bags/day Age of first use: 41 Date of last use: 08/10/19 Crack Substance route: Smoking Frequency: 3-6 times per week Amount used: $75 Age of first use: 49 Date of last use: 08/10/19 Family Disease History - Family Disease History Family Disease History: CA: Father (), Respiratory: Mother, Other: Son ( KILLED) Admission Physical Exam [facility] - Vital Signs Vital Signs: Vital Signs - 24 hr 08/11/19 16:35 Temperature 97.6 F Pulse Rate 65 Respiratory 18 Rate Blood Pressure 148/89 - Physical General Appearance: Yes: Thin, Irritable, Sweating, Anxious HEENTM: Yes: Hearing grossly Normal, Normal ENT Inspection, Normocephalic Respiratory: Yes: Wheezing Neck: Yes: Mass (Swollen left submadibular lymph node) Breast: Yes: Breast Exam Deferred Cardiology: Yes: Regular Rhythm, Regular Rate Abdominal: Yes: Non Tender, Flat Genitourinary: Yes: Frequency, Hesitency Back: Yes: Normal Inspection Musculoskeletal: Yes: Back pain Extremities: Yes: Tremors Neurological: Yes: Alert Integumentary: Yes: Normal Color Lymphatic: Yes: Other - Addiitonal Findings: mass - Diagnostic (1) Alcohol dependence with uncomplicated withdrawal Current Visit: Yes Status: Chronic (2) Anemia Current Visit: Yes Status: Chronic (3) Mass in neck Current Visit: Yes Status: Acute Comment: States mass x 3 weeks (4) Nicotine dependence Current Visit: Yes Status: Chronic Qualifiers: Nicotine product type: cigarettes Substance use status: in withdrawal Qualified Code(s): F17.213 - Nicotine dependence, cigarettes, with withdrawal (5) Weight loss Current Visit: Yes Status: Acute (6) Asthma Current Visit: Yes Status: Chronic Qualifiers: Asthma severity: mild Asthma persistence: intermittent Asthma complication type: with status asthmaticus Qualified Code(s): J45.22 - Mild intermittent asthma with status asthmaticus (7) Cocaine dependence Current Visit: Yes Status: Chronic Qualifiers: Substance use status: uncomplicated Qualified Code(s): F14.20 - Cocaine dependence, uncomplicated (8) Benign prostatic hyperplasia (BPH) with straining on urination Current Visit: Yes Status: Chronic (9) Encounter for monitoring Suboxone maintenance therapy Current Visit: No Status: Chronic Comment: With continued heroin abuse (10) HIV (human immunodeficiency virus infection) Current Visit: Yes Status: Chronic Qualifiers: HIV symptom status: unspecified Qualified Code(s): B20 - Human immunodeficiency virus [HIV] disease (11) Hypertension Current Visit: Yes Status: Chronic Qualifiers: Hypertension type: unspecified Qualified Code(s): I10 - Essential (primary ) hypertension (12) Marijuana dependence Current Visit: Yes Status: Chronic (13) Hepatitis C Current Visit: Yes Status: Chronic Qualifiers: Viral hepatitis chronicity: carrier Qualified Code(s): B18.2 - Chronic viral hepatitis C (14) History of syphilis Current Visit: No Status: Resolved Cleared for Admission [facility] - Detox or Rehab [facility] Level of Care: Medically Managed Detox Regimen/Protocol: Librium (Suboxone maitainence ) Claeared for Rehab Admission: No Breathalyzer - Breathalyzer Breathalyzer: 0 Urine Drug Screen - Test Device Lot number: [id number] Expiration date: 04/25/21 - Control Is test valid?: Yes - Results Drug screen NEGATIVE: No Urine drug screen results: THC-Marijuana, TEENA-Cocaine, MOP-Opiates Inpatient Rehab Admission - Rehab Decision to Admit Inpatient rehab admission?: No
[2019-08-11] MEDS ORDERED: MAGNESIUM HYDROX 2400MG/30ML ORAL SUSPENSION 30 ML CUP PO PRN (17:42)
[2019-08-11] MEDS ORDERED: chlordiazePOXIDE HCL 25 MG CAPSULE PO PRN (17:42)
[2019-08-11] MEDS ORDERED: NICOTINE POLACRILEX 2 MG GUM BUC PRN (17:42)
[2019-08-11] MEDS ORDERED: MAG HYDROX/AL HYDROX/SIMETH 30 ML UNIT-DOSE CUP PO PRN (17:42)
[2019-08-11] MEDS ORDERED: MAGNESIUM CITRATE 300 ML BOTTLE PO PRN (17:42)
[2019-08-11] MEDS ORDERED: traZODone HCL 50 MG TABLET (FP) PO PRN (17:42)
[2019-08-11] MEDS ORDERED: hydrOXYzine PAMOATE 25 MG CAPSULE (FP) PO PRN (17:42)
[2019-08-11] MEDS ORDERED: MENTHOL/PHENOL 1 EACH UD MM PRN (17:42)
[2019-08-11] MEDS ORDERED: METHOCARBAMOL 500 MG TABLET PO PRN (17:42)
[2019-08-11] MEDS ORDERED: ACETAMINOPHEN 325 MG TABLET (FP) PO PRN (17:42)
[2019-08-11] MEDS ORDERED: ALBUTEROL SO4 8 GM HFA INHALER IH PRN (17:44)
[2019-08-11] MEDS ORDERED: chlordiazePOXIDE HCL 25 MG CAPSULE PO ONE (18:30)
[2019-08-11] MEDS: chlordiazePOXIDE HCL 25 MG CAPSULE PO SCH (22:36)
[2019-08-11] MEDS: BUPRENORPHINE/NALOXONE 8 MG/2 MG FILM PACKET SL SCH (22:36)
[2019-08-11] MEDS: MELATONIN 5 MG TABLETS PO PRN (22:37)
[2019-08-11] MEDS: THIAMINE HCL 100 MG TABLET (FP) PO SCH (22:37)
[2019-08-12] MEDS: chlordiazePOXIDE HCL 25 MG CAPSULE PO SCH ×4 (05:17→22:04)
[2019-08-12] MEDS: BUPRENORPHINE/NALOXONE 8 MG/2 MG FILM PACKET SL SCH ×3 (05:17→22:03)
[2019-08-12] MEDS ORDERED: PATIENT'S OWN MEDICATION (NON-FORMULARY) (Bictegrav/Emtricit/Tenofov Ala 1 EACH) PO SCH (10:00)
[2019-08-12 10:07] LABS: HEMATOCRIT 35.8 % (35.4-49); HEMOGLOBIN 11.5 GM/dL (11.7-16.9); MCH 28.2 pg (25.7-33.7); MCHC 32.3 g/dl (32.0-35.9); MEAN CELL VOLUME 87.5 fl (80-96); MEAN PLT VOLUME 8.5 fl (7.5-11.1); PLATELET COUNT 211 K/MM3 (134-434); RBC 4.09 M/mm3 (4.00-5.60); RDW 15.3 % (11.9-15.9); WHITE BLOOD COUNT 2.3 K/mm3 (4.0-10.0)
[2019-08-12] MEDS: NICOTINE 14 MG/24 HOURS TOPICAL PATCH TD SCH (10:07)
[2019-08-12] MEDS: TAMSULOSIN HCL 0.4 MG CAP PO SCH (10:10)
[2019-08-12] MEDS: PRENATAL VITAMINS W/ FOLIC ACID TABLET (FP) PO SCH (10:10)
[2019-08-12] MEDS: amLODIPine BESYLATE 5 MG TABLET (FP) PO SCH (10:10)
[2019-08-12 10:19] LABS: ALBUMIN 2.9 g/dl (3.4-5.0); BILIRUBIN,TOTAL 0.8 mg/dL (0.2-1); BLOOD UREA NITROGEN 23.7 mg/dL (7-18); CALCIUM 8.9 mg/dL (8.5-10.1); CREATININE 1.1 mg/dL (0.55-1.3); POTASSIUM 4.2 mmol/L (3.5-5.1); TOT PROT 9.1 g/dl (6.4-8.2)
--- NOTE | 2019-08-12 11:24 | PN ---
S CIWA - CIWA Score Nausea/Vomitin-No Nausea/No Vomiting Muscle Tremors: 3 Anxiety: 3 Agitation: 3 Paroxysmal Sweats: 3 Orientation: 0-Oriented Tacttile Disturbances: 0-None Auditory Disturbances: 0-None Visual Disturbances: 0-None Headache: 0-None Present CIWA-Ar Total Score: 12 [facility] Progress Note (SOAP) Subjective: sweats agitation pain to my foot after a glass removal a month ago tired Objective: 08/12/19 11:24 Vital Signs Temperature 96.8 F L 08/12/19 09:13 Pulse Rate 57 L 08/12/19 09:13 Respiratory Rate 18 08/12/19 09:13 Blood Pressure 118/70 08/12/19 09:13 O2 Sat by Pulse Oximetry (%) Laboratory Tests 08/12/19 08/12/19 08:00 08:00 WBC 2.3 L RBC 4.09 Hgb 11.5 L Hct 35.8 MCV 87.5 MCH 28.2 MCHC 32.3 RDW 15.3 D Plt Count 211 MPV 8.5 Sodium 139 Potassium 4.2 Chloride 106 Carbon Dioxide 30 Anion Gap 3 L BUN 23.7 H Creatinine 1.1 Est GFR (CKD-EPI)AfAm 85.31 Est GFR (CKD-EPI)NonAf 73.61 Random Glucose 80 Calcium 8.9 Total Bilirubin 0.8 AST 63 H ALT 44 Alkaline Phosphatase 155 H Total Protein 9.1 H Albumin 2.9 L labs noted aaox3 ambulating no acute distress Assessment: 08/12/19 11:25 withdrawals foot assessed, mild bruising healing process, no skin breakdown noted. Plan: continue detox cane ordered gauze ordered to apply for cushion increase fluids motrin/tylenol prn
[2019-08-12] MEDS: BICTEGRAV/EMTRICIT/TENOFOV (BIKTARVY) 50-200-25 MG TABLET PO SCH (13:55)
[2019-08-12] MEDS ORDERED: ALBUTEROL SO4 2.5/IPRATROPIUM 0.5 INH SOL 3 ML VIAL.NEB. NEB PRN (14:37)
--- NOTE | 2019-08-12 14:37 | PN ---
[facility] Progress Note Note: pt c/o of SOB lungs assessed some rhonchi noted albuterol IH ordered prn zithromax 500mg x 3 days will re-assess
[2019-08-12] MEDS ORDERED: ALBUTEROL SO4 2.5/IPRATROPIUM 0.5 INH SOL 3 ML VIAL.NEB. NEB ONE (15:00)
[2019-08-12] MEDS: AZITHROMYCIN 250 MG TABLET PO SCH (15:35)
[2019-08-12] MEDS: ACETAMINOPHEN 325 MG TABLET (FP) PO PRN (19:29)
[2019-08-12] MEDS: THIAMINE HCL 100 MG TABLET (FP) PO SCH (22:04)
[2019-08-12] MEDS: MELATONIN 5 MG TABLETS PO PRN (22:06)
[2019-08-13] MEDS: chlordiazePOXIDE HCL 25 MG CAPSULE PO SCH ×4 (05:46→23:00)
[2019-08-13] MEDS: BUPRENORPHINE/NALOXONE 8 MG/2 MG FILM PACKET SL SCH ×3 (05:46→23:00)
[2019-08-13] MEDS: NICOTINE 14 MG/24 HOURS TOPICAL PATCH TD SCH (10:05)
[2019-08-13] MEDS: TAMSULOSIN HCL 0.4 MG CAP PO SCH (10:06)
[2019-08-13] MEDS: AZITHROMYCIN 250 MG TABLET PO SCH (10:06)
[2019-08-13] MEDS: PRENATAL VITAMINS W/ FOLIC ACID TABLET (FP) PO SCH (10:06)
[2019-08-13] MEDS: BICTEGRAV/EMTRICIT/TENOFOV (BIKTARVY) 50-200-25 MG TABLET PO SCH (10:07)
[2019-08-13] MEDS: ACETAMINOPHEN 325 MG TABLET (FP) PO PRN (10:09)
--- NOTE | 2019-08-13 11:52 | PN ---
S CIWA - CIWA Score Nausea/Vomitin Muscle Tremors: 2 Anxiety: 2 Agitation: 2 Paroxysmal Sweats: No Perspiration Orientation: 0-Oriented Tacttile Disturbances: 0-None Auditory Disturbances: 0-None Visual Disturbances: 0-None Headache: 1-Very Mild CIWA-Ar Total Score: 9 [facility] Progress Note (SOAP) Subjective: alert,irritable,anxious,interrupted sleep,tremor Objective: 08/13/19 11:50 Vital Signs Temperature 98.1 F 08/13/19 09:10 Pulse Rate 60 08/13/19 09:10 Respiratory Rate 18 08/13/19 09:10 Blood Pressure 108/68 08/13/19 09:10 O2 Sat by Pulse Oximetry (%) 99 08/12/19 16:15 08/13/19 11:50 Laboratory Last Values WBC 2.3 K/mm3 (4.0-10.0) L 08/12/19 08:00 RBC 4.09 M/mm3 (4.00-5.60) 08/12/19 08:00 Hgb 11.5 GM/dL (11.7-16.9) L 08/12/19 08:00 Hct 35.8 % (35.4-49) 08/12/19 08:00 MCV 87.5 fl (80-96) 08/12/19 08:00 MCH 28.2 pg (25.7-33.7) 08/12/19 08:00 MCHC 32.3 g/dl (32.0-35.9) 08/12/19 08:00 RDW 15.3 % (11.9-15.9) D 08/12/19 08:00 Plt Count 211 K/MM3 (134-434) 08/12/19 08:00 MPV 8.5 fl (7.5-11.1) 08/12/19 08:00 Sodium 139 mmol/L (136-145) 08/12/19 08:00 Potassium 4.2 mmol/L (3.5-5.1) 08/12/19 08:00 Chloride 106 mmol/L (98-107) 08/12/19 08:00 Carbon Dioxide 30 mmol/L (21-32) 08/12/19 08:00 Anion Gap 3 MMOL/L (8-16) L 08/12/19 08:00 BUN 23.7 mg/dL (7-18) H 08/12/19 08:00 Creatinine 1.1 mg/dL (0.55-1.3) 08/12/19 08:00 Est GFR (CKD-EPI)AfAm 85.31 08/12/19 08:00 Est GFR (CKD-EPI)NonAf 73.61 08/12/19 08:00 Random Glucose 80 mg/dL (74-106) 08/12/19 08:00 Calcium 8.9 mg/dL (8.5-10.1) 08/12/19 08:00 Total Bilirubin 0.8 mg/dL (0.2-1) 08/12/19 08:00 AST 63 U/L (15-37) H 08/12/19 08:00 ALT 44 U/L (13-61) 08/12/19 08:00 Alkaline Phosphatase 155 U/L (45-117) H 08/12/19 08:00 Total Protein 9.1 g/dl (6.4-8.2) H 08/12/19 08:00 Albumin 2.9 g/dl (3.4-5.0) L 08/12/19 08:00 RPR Titer Nonreactive (NONREACTIVE) 08/12/19 08:00 Assessment: 08/13/19 11:51 withdrawal symptom Plan: continue detox librium regimen
[2019-08-13] MEDS: amLODIPine BESYLATE 5 MG TABLET (FP) PO SCH (14:08)
[2019-08-13] MEDS: MELATONIN 5 MG TABLETS PO PRN (22:59)
[2019-08-13] MEDS: THIAMINE HCL 100 MG TABLET (FP) PO SCH (23:00)
[2019-08-14] MEDS ORDERED: chlordiazePOXIDE HCL 10 MG CAPSULE PO PRN
[2019-08-14] MEDS: BUPRENORPHINE/NALOXONE 8 MG/2 MG FILM PACKET SL SCH ×3 (05:41→22:25)
[2019-08-14] MEDS: chlordiazePOXIDE HCL 10 MG CAPSULE PO SCH ×4 (05:42→22:25)
[2019-08-14] MEDS: PRENATAL VITAMINS W/ FOLIC ACID TABLET (FP) PO SCH (11:16)
[2019-08-14] MEDS: AZITHROMYCIN 250 MG TABLET PO SCH (11:16)
[2019-08-14] MEDS: TAMSULOSIN HCL 0.4 MG CAP PO SCH (11:16)
[2019-08-14] MEDS: amLODIPine BESYLATE 5 MG TABLET (FP) PO SCH (11:17)
[2019-08-14] MEDS: NICOTINE 14 MG/24 HOURS TOPICAL PATCH TD SCH (11:17)
--- NOTE | 2019-08-14 13:14 | PN ---
S CIWA - CIWA Score Nausea/Vomitin-No Nausea/No Vomiting Muscle Tremors: 2 Anxiety: 2 Agitation: 2 Paroxysmal Sweats: No Perspiration Orientation: 0-Oriented Tacttile Disturbances: 0-None Auditory Disturbances: 0-None Visual Disturbances: 0-None Headache: 0-None Present CIWA-Ar Total Score: 6 [facility] Progress Note (SOAP) Subjective: feeling better little sweats Objective: 08/14/19 13:13 Vital Signs Temperature 97.3 F L 08/14/19 09:14 Pulse Rate 58 L 08/14/19 09:14 Respiratory Rate 16 08/14/19 09:14 Blood Pressure 114/73 08/14/19 09:14 O2 Sat by Pulse Oximetry (%) 99 08/12/19 16:15 aaox3 ambulating no acute distress Assessment: 08/14/19 13:13 mild withdrawals Plan: continue detox increase fluids
[2019-08-14] MEDS: THIAMINE HCL 100 MG TABLET (FP) PO SCH (22:25)
[2019-08-15] MEDS: chlordiazePOXIDE HCL 10 MG CAPSULE PO SCH ×2 (06:46→18:25)
[2019-08-15] MEDS: BUPRENORPHINE/NALOXONE 8 MG/2 MG FILM PACKET SL SCH ×3 (06:46→21:27)
[2019-08-15] MEDS: TAMSULOSIN HCL 0.4 MG CAP PO SCH (09:55)
[2019-08-15] MEDS: PRENATAL VITAMINS W/ FOLIC ACID TABLET (FP) PO SCH (09:55)
[2019-08-15] MEDS: BICTEGRAV/EMTRICIT/TENOFOV (BIKTARVY) 50-200-25 MG TABLET PO SCH (09:55)
[2019-08-15] MEDS: NICOTINE 14 MG/24 HOURS TOPICAL PATCH TD SCH (09:58)
--- NOTE | 2019-08-15 11:13 | PN ---
[facility] CIWA - CIWA Score Nausea/Vomitin-No Nausea/No Vomiting Muscle Tremors: 1-None Visible, but [place] Anxiety: 1-Mildly Anxious Agitation: 1-Slight > Activity Paroxysmal Sweats: No Perspiration Orientation: 0-Oriented Tacttile Disturbances: 0-None Auditory Disturbances: 0-None Visual Disturbances: 0-None Headache: 1-Very Mild CIWA-Ar Total Score: 4 [facility] Progress Note (SOAP) Subjective: alert,irritable,anxious,interrupted sleep Objective: 08/15/19 11:12 Vital Signs Temperature 97.2 F L 08/15/19 09:44 Pulse Rate 69 08/15/19 09:44 Respiratory Rate 18 08/15/19 09:44 Blood Pressure 110/64 08/15/19 09:44 O2 Sat by Pulse Oximetry (%) 99 08/12/19 16:15 Assessment: 08/15/19 11:12 withdrawal symptom Plan: contine detox,discharge in am
[2019-08-15] MEDS: amLODIPine BESYLATE 5 MG TABLET (FP) PO SCH (14:15)
--- NOTE | 2019-08-15 16:11 | HP ---
[facility] Rehab Assess/Revision - Admission History Admitted to Rehab from: [facility] Date of Admission to Rehab: 08/15/19 - Vital signs Vital Signs: Vital Signs Period Temp Pulse Resp BP Sys/Hanna Pulse Ox Last 24 Hr 96.8 F-98.4 F 51-69 18-18 109-136/63-74 - Findings Detox History & Physical reviewed: Yes Concur with findings: Yes Comments/Additional Findings: for rehab as protocol Inpatient Rehab Admission - Rehab Decision to Admit Inpatient rehab admission?: Yes - Initial Determination Are CD services needed?: Yes Free of communicable disease: Yes Not in need of hospitalization: Yes - Rehab Admission Criteria Previous failed treatment: Yes Poor recovery environment: Yes Comorbidities: Yes Lacks judgement: No Patient is meeting Inpatient Rehab admission criteria:: Yes
--- NOTE | 2019-08-15 16:12 | PN ---
[facility] Progress Note Note: patient is stable to go to rehab today
--- NOTE | 2019-08-15 16:15 | DS ---
[facility] Detox Discharge Summary Admission Date: 08/11/19 Discharge Date: 08/15/19 - History Present History: Alcohol Dependence, Cocaine Dependence Additional Comments: follow up with [facility] as arrangement Pertinent Past History: asthma bph hiv hypertension - Physical Exam Results Vital Signs: Vital Signs Temperature 98.4 F 08/15/19 13:49 Pulse Rate 65 08/15/19 13:49 Respiratory Rate 18 08/15/19 13:49 Blood Pressure 109/63 08/15/19 13:49 O2 Sat by Pulse Oximetry (%) 99 08/12/19 16:15 Pertinent Admission Physical Exam Findings: withdrawal sign and symptom - Treatment Hospital Course: Detox Protocol Followed, Detoxed Safely, Responded well, Discharged Condition Good, Rehab Referral Accepted Patient has Accepted a Rehab Referral to: [facility] - Medication Discharge Medications: Ambulatory Orders Bictegrav/Emtricit/Tenofov Ala [Biktarvy 50-200-25 mg Tablet] 1 each PO DAILY Buprenorphine/Naloxone [Suboxone 8Mg/2Mg Sl Film -] 1 each SL TID 01/06/19 traZODone HCL [Trazodone HCl] 50 mg PO HS 06/06/19 Albuterol Sulfate Inhaler - [Ventolin HFA Inhaler -] 2 inh PO Q4H PRN #1 inhaler 06/10/19 Amlodipine Besylate [Norvasc -] 5 mg PO DAILY #30 tablet 06/10/19 Tamsulosin HCl [Flomax -] 0.4 mg PO DAILY #30 cap.er.24h 06/10/19 - Diagnosis (1) Alcohol dependence with uncomplicated withdrawal Current Visit: Yes Status: Chronic (2) Asthma Current Visit: Yes Status: Chronic Qualifiers: Asthma severity: mild Asthma persistence: intermittent Asthma complication type: with status asthmaticus Qualified Code(s): J45.22 - Mild intermittent asthma with status asthmaticus (3) Benign prostatic hyperplasia (BPH) with straining on urination Current Visit: Yes Status: Chronic (4) Cocaine dependence Current Visit: Yes Status: Chronic Qualifiers: Substance use status: uncomplicated Qualified Code(s): F14.20 - Cocaine dependence, uncomplicated (5) HIV (human immunodeficiency virus infection) Current Visit: Yes Status: Chronic Qualifiers: HIV symptom status: unspecified Qualified Code(s): B20 - Human immunodeficiency virus [HIV] disease (6) Hepatitis C Current Visit: Yes Status: Chronic Qualifiers: Viral hepatitis chronicity: carrier Qualified Code(s): B18.2 - Chronic viral hepatitis C (7) Hypertension Current Visit: Yes Status: Chronic Qualifiers: Hypertension type: unspecified Qualified Code(s): I10 - Essential (primary ) hypertension (8) Nicotine dependence Current Visit: Yes Status: Chronic Qualifiers: Nicotine product type: cigarettes Substance use status: in withdrawal Qualified Code(s): F17.213 - Nicotine dependence, cigarettes, with withdrawal (9) Encounter for monitoring Suboxone maintenance therapy Current Visit: No Status: Chronic (10) History of syphilis Current Visit: No Status: Resolved - AMA Did Patient Leave Against Medical Advice: No
[2019-08-15 20:53] VITALS: BP 148/82; PULSE 61; TEMP 97.8
[2019-08-15] MEDS: THIAMINE HCL 100 MG TABLET (FP) PO SCH (21:27)
[2019-08-16] MEDS ORDERED: chlordiazePOXIDE HCL 10 MG CAPSULE PO ONE (05:00)
== END 2019-08-15 21:30 | disposition other institution (70) | DRG 774 ==
LOC: YASAS 14:00 → Y6N 18:10
PROVIDERS: ADMIT Surgery; ATTEND Surgery
PROC: HZ2ZZZZ Detoxification Services for Substance Abuse Treatment (ICD-10-PCS; principal; 2019-08-11)
DX: F10.230 Alcohol dependence with withdrawal, uncomplicated (principal); F14.20 Cocaine dependence, uncomplicated; F12.20 Cannabis dependence, uncomplicated; F17.210 Nicotine dependence, cigarettes, uncomplicated; Z21 Asymptomatic human immunodeficiency virus [HIV] infection status; D64.9 Anemia, unspecified; I10 Essential (primary) hypertension; J45.22 Mild intermittent asthma with status asthmaticus; N40.1 Benign prostatic hyperplasia with lower urinary tract symptoms; R39.16 Straining to void; B18.2 Chronic viral hepatitis C; R63.4 Abnormal weight loss; Z68.22 Body mass index [BMI] 22.0-22.9, adult
CPT/HCPCS: 36415; 80053; 85027; 86593; 94640

== ENCOUNTER 2019-08-15 21:51 | Inpatient (IN) | payer OTHER ==
[2019-08-16] MEDS ORDERED: MENTHOL/PHENOL 1 EACH UD MM PRN (02:23)
[2019-08-16] MEDS ORDERED: NICOTINE POLACRILEX 2 MG GUM BUC PRN (02:23)
[2019-08-16] MEDS ORDERED: LOPERAMIDE HCL 2 MG CAPSULE PO PRN (02:23)
[2019-08-16] MEDS ORDERED: P-EPHED 60MG/TRIPROLIDI 2.5MG TABLET PO PRN (02:23)
[2019-08-16] MEDS ORDERED: MAG HYDROX/AL HYDROX/SIMETH 30 ML UNIT-DOSE CUP PO PRN (02:23)
[2019-08-16] MEDS ORDERED: MAGNESIUM HYDROX 2400MG/30ML ORAL SUSPENSION 30 ML CUP PO PRN (02:23)
[2019-08-16] MEDS ORDERED: ACETAMINOPHEN 325 MG TABLET (FP) PO PRN (02:23)
[2019-08-16] MEDS ORDERED: guaiFENesin 200 MG/10 ML 10 ML UNIT-DOSE CUPS PO PRN (02:23)
[2019-08-16] MEDS ORDERED: hydrOXYzine PAMOATE 50 MG CAPSULE (FP) PO PRN (02:23)
[2019-08-16] MEDS ORDERED: MAGNESIUM CITRATE 300 ML BOTTLE PO PRN (02:23)
--- NOTE | 2019-08-16 02:23 | HP ---
[facility] Rehab Assess/Revision - Admission History Admitted to Rehab from: [facility] Date of Admission to Rehab: 08/15/2019 - Vital signs Vital Signs: Vital Signs Period Temp Pulse Resp BP Sys/Hanna Pulse Ox Last 24 Hr 98.3 F 59 16-18 142/89 - Findings Detox History & Physical reviewed: Yes Concur with findings: Yes Comments/Additional Findings: Patient completed alcohol detox and re-stabilized on prescribed Suboxone. Patient w/ hx cocaine/crack use disorder, nicotine use disorder, asthma, BPH, and HTN. Inpatient Rehab Admission - Rehab Decision to Admit Inpatient rehab admission?: Yes - Initial Determination Are CD services needed?: Yes Free of communicable disease: Yes Not in need of hospitalization: Yes - Rehab Admission Criteria Previous failed treatment: Yes Poor recovery environment: Yes Comorbidities: Yes Lacks judgement: No Patient is meeting Inpatient Rehab admission criteria:: Yes
[2019-08-16] MEDS ORDERED: ALBUTEROL SO4 0.083% IH SOL 2.5 MG/3 ML VIAL.NEB. NEB PRN (02:30)
[2019-08-16] MEDS: BUPRENORPHINE/NALOXONE 8 MG/2 MG FILM PACKET SL SCH ×3 (06:42→21:46)
[2019-08-16] MEDS: TAMSULOSIN HCL 0.4 MG CAP PO SCH (08:55)
[2019-08-16] MEDS: PRENATAL VITAMINS W/ FOLIC ACID TABLET (FP) PO SCH (10:08)
[2019-08-16] MEDS: amLODIPine BESYLATE 5 MG TABLET (FP) PO SCH (10:08)
[2019-08-16] MEDS: NICOTINE 14 MG/24 HOURS TOPICAL PATCH TD SCH (10:09)
[2019-08-16] MEDS: traZODone HCL 50 MG TABLET (FP) PO SCH (21:46)
[2019-08-16] MEDS: THIAMINE HCL 100 MG TABLET (FP) PO SCH (21:46)
[2019-08-16] MEDS ORDERED: MELATONIN 5 MG TABLETS PO PRN (22:00)
[2019-08-17] MEDS: BUPRENORPHINE/NALOXONE 8 MG/2 MG FILM PACKET SL SCH ×3 (07:08→21:11)
[2019-08-17] MEDS: TAMSULOSIN HCL 0.4 MG CAP PO SCH (09:00)
[2019-08-17] MEDS: amLODIPine BESYLATE 5 MG TABLET (FP) PO SCH (09:35)
[2019-08-17] MEDS: NICOTINE 14 MG/24 HOURS TOPICAL PATCH TD SCH (09:35)
[2019-08-17] MEDS: PRENATAL VITAMINS W/ FOLIC ACID TABLET (FP) PO SCH (09:35)
[2019-08-17] MEDS: traZODone HCL 50 MG TABLET (FP) PO SCH (21:10)
[2019-08-17] MEDS: THIAMINE HCL 100 MG TABLET (FP) PO SCH (21:10)
[2019-08-18] MEDS: BUPRENORPHINE/NALOXONE 8 MG/2 MG FILM PACKET SL SCH ×2 (06:37→14:33)
[2019-08-18 07:07] VITALS: TEMP 97.7
[2019-08-18] MEDS: TAMSULOSIN HCL 0.4 MG CAP PO SCH (08:29)
[2019-08-18] MEDS ORDERED: MUPIROCIN 2% TOPICAL OINTMENT 22 GM TUBE TP SCH (10:00)
--- NOTE | 2019-08-18 10:09 | PN ---
[facility] Progress Note Note: PATIENT SEEN FOR C/O LEFT FOOT DISCOMFORT AFTER STEPPING ON GLASS A LONG TIME AGO WHICH WAS REMOVED AND TREATED WITH ANTIBIOTICS. PATIENT STATES HE HAS HAD DISCOMFORT TO AREA SINCE. ROS: DENIES FEVER, SWELLING TO LOWER LEG/PAIN IN CALF. Vital Signs Period Temp Pulse Resp BP Sys/Hanna Pulse Ox Last 24 Hr 97.7 F 54 18-18 149/94 PE: ALERT AND ORIENTED X 3 SKIN WARM AND DRY +PERRLA, EOMS INTACT BL NECK SUPPLE, NO JVD EXT MILD SWELLING OF ANKLES B/L, LEFT PLANTAR ASPECT OF FOOT WITH SMALL DARK PIGMENTED AREA, MILD SWELLING AND/OR REDNESS, NO DISCHARGE. NO OPEN AREAS AMB AD HANNAH A/P: RESOLVING PUNCTURE WOUND TO FOOT-TIME FRAME UNKNOWN WILL TREAT LOCALLY WITH BACTROBAN 2% OINTMENT BID X 7 DAYS MONITOR CLINICALLY
[2019-08-18] MEDS: PRENATAL VITAMINS W/ FOLIC ACID TABLET (FP) PO SCH (10:29)
[2019-08-18] MEDS: NICOTINE 14 MG/24 HOURS TOPICAL PATCH TD SCH (10:29)
[2019-08-18] MEDS: amLODIPine BESYLATE 5 MG TABLET (FP) PO SCH (10:29)
[2019-08-18 11:21] VITALS: BP 132/84; PULSE 63
--- NOTE | 2019-08-18 15:12 | DS ---
[facility] Rehab Discharge Summary - [facility] Rehab Discharge Summary Admission Date: 08/15/19 Discharge Date: 08/18/19 - History Present History: Opioid dependence - Discharge Physical Exam Vital Signs: Vital Signs Temperature 97.7 F 08/18/19 07:06 Pulse Rate 63 08/18/19 10:00 Respiratory Rate 18 08/18/19 07:06 Blood Pressure 132/84 08/18/19 10:00 O2 Sat by Pulse Oximetry (%) - Medication Discharge Medications: Ambulatory Orders Bictegrav/Emtricit/Tenofov Ala [Biktarvy 50-200-25 mg Tablet] 1 each PO DAILY Buprenorphine/Naloxone [Suboxone 8Mg/2Mg Sl Film -] 1 each SL TID 01/06/19 traZODone HCL [Trazodone HCl] 50 mg PO HS 06/06/19 Albuterol Sulfate Inhaler - [Ventolin HFA Inhaler -] 2 inh PO Q4H PRN #1 inhaler 08/18/19 Amlodipine Besylate [Norvasc -] 5 mg PO DAILY #14 tablet 08/18/19 Tamsulosin HCl [Flomax -] 0.4 mg PO DAILY #14 cap.er.24h 08/18/19 - Medication-Assisted Treatment (MAT) Medication-Assisted Treatment (MAT): Yes Medication Prescribed: Buprenorphine MAT Follow-up Referral: [facility] - Discharge Instructions Diet, activity, other medical instructions: Diet: Activity: Other medical instructions: - Follow-up Referral Minutes to complete discharge: 30 - AMA Did Patient Leave Against Medical Advice: Yes
--- NOTE | 2019-08-18 15:20 | PN ---
[facility] Progress Note Note: Patient requested to sign out AMA today stating " I have to visit family in [place]" . Patient encouraged to stay in rehab and explained risk factors of relapse with signing out AMA. Despite interventions, patient refused to complete treatment. Patient has aftercare arranged for [facility] and is to make his own appointment once he returns from [place]. Patient currently on Suboxone 8mg/ 2mg sl tid and received last prescription on 08/06/19 #90 films. Patient states he has medication at home. Encouraged by ghost writer to follow up with pcp and [facility] upon his return from [place] to continue medical and addiction management. Vital Signs Temperature 97.7 F 08/18/19 07:06 Pulse Rate 63 08/18/19 10:00 Respiratory Rate 18 08/18/19 07:06 Blood Pressure 132/84 08/18/19 10:00 O2 Sat by Pulse Oximetry (%) Ambulatory Orders Bictegrav/Emtricit/Tenofov Ala [Biktarvy 50-200-25 mg Tablet] 1 each PO DAILY Buprenorphine/Naloxone [Suboxone 8Mg/2Mg Sl Film -] 1 each SL TID 01/06/19 traZODone HCL [Trazodone HCl] 50 mg PO HS 06/06/19 Albuterol Sulfate Inhaler - [Ventolin HFA Inhaler -] 2 inh PO Q4H PRN #1 inhaler 08/18/19 Amlodipine Besylate [Norvasc -] 5 mg PO DAILY #14 tablet 08/18/19 Tamsulosin HCl [Flomax -] 0.4 mg PO DAILY #14 cap.er.24h 08/18/19 a/p opiod dependence patient signed out AMA
== END 2019-08-18 15:15 | disposition left against medical advice (07) | DRG 770 ==
LOC: YASAS 21:51 → Y3W 21:53
PROVIDERS: ADMIT Neuromusculoskeletal Medicine & OMM; ATTEND Neuromusculoskeletal Medicine & OMM
PROC: HZ42ZZZ Group Counseling for Substance Abuse Treatment, Cognitive-Behavioral (ICD-10-PCS; principal; 2019-08-15)
DX: F11.20 Opioid dependence, uncomplicated (principal)

== ENCOUNTER 2021-07-15 23:59 | Emergency (ER) | payer OTHER ==
[2021-07-16 00:34] VITALS: BMI 22.1
[2021-07-16] MEDS ORDERED: TAMSULOSIN HCL 0.4 MG CAP PO ONE (01:11)
[2021-07-16] MEDS ORDERED: TAMSULOSIN HCL 0.4 MG CAP ONE (01:35)
[2021-07-16 07:03] VITALS: BP 179/96; PULSE 53; TEMP 97.7
[2021-07-16] MEDS ORDERED: HYDROCHLOROTHIAZIDE 12.5 MG CAPSULE (FP) PO SCH (08:15)
[2021-07-16] MEDS ORDERED: amLODIPine BESYLATE 5 MG TABLET (FP) PO ONE (08:15)
[2021-07-16] MEDS ORDERED: amLODIPine BESYLATE 5 MG TABLET (FP) ONE (08:22)
[2021-07-16] MEDS ORDERED: HYDROCHLOROTHIAZIDE 25 MG TABLET (FP) ONE (08:22)
== END 2021-07-16 08:32 | disposition home or self-care (01) ==
LOC: JER 23:59
DX: F11.982 Opioid use, unspecified with opioid-induced sleep disorder (principal); F14.90 Cocaine use, unspecified, uncomplicated; F10.99 Alcohol use, unspecified with unspecified alcohol-induced disorder
CPT/HCPCS: 93005; 93010; 99283-25

== ENCOUNTER 2021-07-16 09:34 | Inpatient (IN) | payer OTHER ==
[2021-07-16 10:51] VITALS: BMI 22.1
[2021-07-16] MEDS ORDERED: LORazepam 1 MG TABLET PO PRN (16:54)
[2021-07-16] MEDS ORDERED: MAGNESIUM CITRATE 300 ML BOTTLE PO PRN (16:54)
[2021-07-16] MEDS ORDERED: METHOCARBAMOL 500 MG TABLET PO PRN (16:54)
[2021-07-16] MEDS ORDERED: MENTHOL/PHENOL 1 EACH UD MM PRN (16:54)
[2021-07-16] MEDS ORDERED: ACETAMINOPHEN 325 MG TABLET (FP) PO PRN ×2 (16:54)
[2021-07-16] MEDS ORDERED: MAGNESIUM HYDROX 2400MG/30ML ORAL SUSPENSION 30 ML CUP PO PRN (16:54)
[2021-07-16] MEDS ORDERED: MAG HYDROX/AL HYDROX/SIMETH 30 ML UNIT-DOSE CUP PO PRN (16:54)
[2021-07-16] MEDS ORDERED: NICOTINE 10 MG CARTRIDGE (INHALER) IH PRN (16:54)
[2021-07-16] MEDS ORDERED: ONDANSETRON *ODT* 4 MG TABLET SL PRN (16:54)
[2021-07-16] MEDS ORDERED: ALBUTEROL SO4 HFA INHALER IH PRN (16:58)
[2021-07-16] MEDS: LORazepam 2 MG TABLET PO SCH ×2 (19:42→22:56)
[2021-07-16] MEDS: hydrOXYzine PAMOATE 25 MG CAPSULE (FP) PO SCH ×2 (19:42→22:57)
[2021-07-16] MEDS: TAMSULOSIN HCL 0.4 MG CAP PO SCH (19:42)
[2021-07-16] MEDS: amLODIPine BESYLATE 5 MG TABLET (FP) PO SCH (19:43)
[2021-07-16] MEDS: BUPRENORPHINE/NALOXONE 8 MG/2 MG FILM PACKET SL SCH (22:55)
[2021-07-16] MEDS: THIAMINE HCL 100 MG TABLET (FP) PO SCH (22:56)
[2021-07-16] MEDS: MELATONIN 5 MG TABLETS PO SCH (22:56)
[2021-07-17] MEDS: LORazepam 2 MG TABLET PO SCH ×4 (05:11→22:02)
[2021-07-17] MEDS: hydrOXYzine PAMOATE 25 MG CAPSULE (FP) PO SCH ×2 (05:11→17:46)
[2021-07-17] MEDS: BUPRENORPHINE/NALOXONE 8 MG/2 MG FILM PACKET SL SCH ×3 (05:11→22:02)
[2021-07-17] MEDS: TAMSULOSIN HCL 0.4 MG CAP PO SCH (08:18)
[2021-07-17] MEDS: amLODIPine BESYLATE 5 MG TABLET (FP) PO SCH (10:32)
[2021-07-17] MEDS: PRENATAL VITAMINS W/ FOLIC ACID TABLET (FP) PO SCH (10:32)
[2021-07-17] MEDS: BICTEGRAV/EMTRICIT/TENOFOV (BIKTARVY) 50-200-25 MG TABLET PO SCH (10:33)
[2021-07-17] MEDS: THIAMINE HCL 100 MG TABLET (FP) PO SCH (22:02)
[2021-07-17] MEDS: MELATONIN 5 MG TABLETS PO SCH (22:02)
[2021-07-18] MEDS: LORazepam 1 MG TABLET PO SCH ×4 (06:04→22:35)
[2021-07-18] MEDS: BUPRENORPHINE/NALOXONE 8 MG/2 MG FILM PACKET SL SCH ×3 (06:05→22:35)
[2021-07-18] MEDS: BICTEGRAV/EMTRICIT/TENOFOV (BIKTARVY) 50-200-25 MG TABLET PO SCH (07:20)
[2021-07-18] MEDS: TAMSULOSIN HCL 0.4 MG CAP PO SCH (07:20)
[2021-07-18] MEDS: amLODIPine BESYLATE 5 MG TABLET (FP) PO SCH (10:14)
[2021-07-18] MEDS: PRENATAL VITAMINS W/ FOLIC ACID TABLET (FP) PO SCH (10:14)
[2021-07-18 15:06] LABS: HEMATOCRIT 32.1 % (35.4-49); HEMOGLOBIN 10.6 GM/dL (11.7-16.9); MCH 27.7 pg (25.7-33.7); MCHC 32.9 g/dl (32.0-35.9); MEAN CELL VOLUME 84.5 fl (80-96); MEAN PLT VOLUME 8.4 fl (7.5-11.1); PLATELET COUNT 195 10^3/uL (134-434); RDW 16.4 % (11.9-15.9)
[2021-07-18 15:11] LABS: CALCIUM 8.2 mg/dL (8.5-10.1)
[2021-07-18 15:12] LABS: ALBUMIN 2.6 g/dl (3.4-5.0); BLOOD UREA NITROGEN 23.4 mg/dL (7-18)
[2021-07-18 15:17] LABS: BILIRUBIN,TOTAL 1.2 mg/dL (0.2-1); TOT PROT 7.5 g/dl (6.4-8.2)
[2021-07-18] MEDS: THIAMINE HCL 100 MG TABLET (FP) PO SCH (22:35)
[2021-07-18] MEDS: MELATONIN 5 MG TABLETS PO SCH (22:35)
[2021-07-19] MEDS ORDERED: LORazepam 0.5 MG TABLET PO PRN
[2021-07-19] MEDS: BUPRENORPHINE/NALOXONE 8 MG/2 MG FILM PACKET SL SCH (06:12)
[2021-07-19] MEDS: LORazepam 0.5 MG TABLET PO SCH ×2 (06:12→10:58)
[2021-07-19] MEDS: BICTEGRAV/EMTRICIT/TENOFOV (BIKTARVY) 50-200-25 MG TABLET PO SCH (08:25)
[2021-07-19] MEDS: TAMSULOSIN HCL 0.4 MG CAP PO SCH (08:25)
[2021-07-19 09:51] VITALS: BP 113/67; PULSE 59; TEMP 96.8
[2021-07-19] MEDS: PRENATAL VITAMINS W/ FOLIC ACID TABLET (FP) PO SCH (10:26)
[2021-07-19] MEDS: amLODIPine BESYLATE 5 MG TABLET (FP) PO SCH (10:26)
[2021-07-20] MEDS ORDERED: LORazepam 0.5 MG TABLET PO ONE (05:00)
== END 2021-07-19 10:54 | disposition home or self-care (01) | DRG 773 ==
LOC: YASAS 09:34 → UNDOADMIN 16:54 → Y3W 16:54 → Y3N 17:19
PROVIDERS: ADMIT Allergy & Immunology; ATTEND Allergy & Immunology
PROC: HZ2ZZZZ Detoxification Services for Substance Abuse Treatment (ICD-10-PCS; principal; 2021-07-16)
DX: F10.230 Alcohol dependence with withdrawal, uncomplicated (principal); F11.20 Opioid dependence, uncomplicated; F14.20 Cocaine dependence, uncomplicated; F12.20 Cannabis dependence, uncomplicated; F17.210 Nicotine dependence, cigarettes, uncomplicated; F19.24 Other psychoactive substance dependence with psychoactive substance-induced mood disorder; F39 Unspecified mood [affective] disorder; F34.1 Dysthymic disorder; Z21 Asymptomatic human immunodeficiency virus [HIV] infection status; I10 Essential (primary) hypertension; J43.9 Emphysema, unspecified; J45.909 Unspecified asthma, uncomplicated; D64.9 Anemia, unspecified; D72.819 Decreased white blood cell count, unspecified; N40.1 Benign prostatic hyperplasia with lower urinary tract symptoms; R39.16 Straining to void; Z88.8 Allergy status to other drugs, medicaments and biological substances; Z88.6 Allergy status to analgesic agent
CPT/HCPCS: 36415; 80053; 85027; 86780; C9803; U0003; U0005